=== PATIENT | male | born 1935 | race Caucasian/White ===

== ENCOUNTER 2016-07-31 20:07 | Inpatient (IN) | payer OTHER ==
[~2016-07-31] VITALS: Ht 165.1 cm; Wt 77.2 kg
[~2016-07-31 20:07] MED LIST changes: -AMR2 PO; -ASPEC81 PO; -CARB-157 PO; -GLIM1TAB2 PO; -PRVC10 PO; -SAXAGLIPTIN PO
[2016-07-31] MEDS ORDERED: SODIUM CHLORIDE 0.9% 1000ML 1,000 ML IV SCH (20:57)
--- NOTE | 2016-07-31 21:07 | EMERGENCY ROOM VISIT NOTE ---
History Report prepared by Lashaeibe: Dianelys Stiles Under the Supervision of: Dr. Juan Bonilla D.O. First contact with patient: 20:54 Chief Complaint: NEURO SYMPTOMS Stated Complaint: CONFUSION Nursing Triage Summary: pt arrived via ALS; he is not able to articulate his thoughts, his words are jumbled; states he knows what is happening; he does not follow commands. History of Present Illness The patient is a 81 year old male who presents to the Emergency Room via ALS with complaints of persistent neurological symptoms. Per nursing staff, the patient's symptoms started about 7 - 7.5 hours ago. The patient states that he cannot hear, "I can't pull together." Upon arrival, the patient has expressive aphasia. His blood sugar was 180 en route. History is limited secondary to aphasia. Source of History: patient, nursing staff History Limited By: aphasia Onset: 7 - 7.5 hours ago Position: other (neuro ) Quality: other (expressive aphasia) Timing: other (persistent) Review of Systems Unobtainable secondary to aphasia. Past Medical & Surgical Medical Problems: (1) Diabetes (2) HTN (hypertension) Family History Noncontributory secondary to age. Social History Smoking Status: Former Smoker Alcohol Use: none Marital Status: Housing Status: lives with significant other Current/Historical Medications Scheduled Alfuzosin Hcl (Uroxatral), 10 MG PO QPM Glipizide (Glipizide Er), 1 TAB PO BID Hctz/Lisinopril (Lisinopril/Hctz 20/25 Mg), 1 TAB PO QAM Levothyroxine Sodium (Levothyroxine Sodium), 1 TAB PO QAM Metformin Hcl (Glucophage), 1,000 MG PO BID [Saxagliptin], 2.5 MG PO DAILY Scheduled PRN Oxycodone/Acetaminophen 5MG/325MG (Percocet 5MG/325MG), 1-2 TABLETS PO Q4H PRN for Pain Allergies Coded Allergies: No Known Allergies (Verified , 03/11/16) Physical Exam Vital Signs Date Time Temp Pulse Resp B/P Pulse Ox O2 Delivery O2 Flow Rate FiO2 08/01/16 00:02 81 18 121/64 94 Room Air 07/31/16 22:25 147/73 07/31/16 22:17 90 18 95 Room Air 07/31/16 21:20 87 07/31/16 21:17 94 Room Air 07/31/16 20:15 36.8 89 18 150/82 96 Room Air Physical Exam GENERAL: Patient is awake and alert, somewhat anxious appearing and guarded. EYES: The conjunctivae are clear. The pupils are round and reactive. EARS, NOSE, MOUTH AND THROAT: The nose is without any evidence of any deformity. Mucous membranes are moist tongue is midline NECK: The neck is nontender and supple. There were no bruits noted to auscultation. RESPIRATORY: Normal respiratory effort is noted there is no evidence of wheezing rhonchi or rales CARDIOVASCULAR: Regular rate and rhythm noted there no murmurs rubs or gallops normal S1 normal S2 GASTROINTESTINAL: The abdomen is soft. Bowel sounds are present in all quadrants. Abdomen is nontender MUSCULOSKELETAL/EXTREMITIES: There is no evidence of gross deformity full range of motion is noted in the hips and shoulders SKIN: There is no obvious evidence of any rash. There are no petechiae, pallor or cyanosis noted. NEUROLOGIC: Strength was symmetric. There was no drift in either upper or lower extremity. No facial droop was noted. Significant expressive aphasia was appreciated on questioning. Patient had word findings at times. Medical Decision & Procedures ER Provider Diagnostic Interpretation: X ray results and stated below per my interpretation and radiology interpretation. Other radiology results per my review and radiologist interpretation: CT HEAD WITHOUT CONTRAST (CT) CLINICAL HISTORY: Stroke COMPARISON STUDY: No previous studies for comparison. TECHNIQUE: Axial CT of the brain is performed from the vertex to the skull base. IV contrast was not administered for this examination. CT DOSE: 614.27 mGy.cm FINDINGS: No intra or extra-axial mass lesions are visualized. There is subtle loss in miller-white differentiation within the left parietal apex. This could indicate an acute/subacute infarct. There is no acute hemorrhage. There are patchy white matter hypodensities likely on a small vessel basis. There is no evidence of pathologic ventricular dilatation. There are multiple bilateral basal ganglia and deep white matter lacunar infarcts. There is a left mastoid effusion. IMPRESSION: 1. Multiple old bilateral lacunar infarcts 2. Subtle loss in miller-white differentiation involving the left parietal lobe, possibly representing an acute/subacute infarct. 3. No acute hemorrhage 4. Left mastoid effusion Electronically signed by: Jeramie Lawson M.D. 07/31/2016 9:16 PM Dictated Date/Time: 07/31/2016 9:13 PM CHEST ONE VIEW PORTABLE CLINICAL HISTORY: Stroke COMPARISON STUDY: 03/06/2016 FINDINGS: The heart is borderline enlarged. There is stable aortic tortuosity/ectasia. There is stable mild interstitial thickening. There is no lobar consolidation. There is a punctate metallic density projected over the right midlung zone, unchanged from the prior study [ IMPRESSION: No active disease in the chest. Electronically signed by: Jeramie Lawson M.D. 07/31/2016 9:17 PM Dictated Date/Time: 07/31/2016 9:16 PM Laboratory Results 07/31/16 21:41 Red Blood Count 4.78, Mean Corpuscular Volume 83.5, Mean Corpuscular Hemoglobin 27.8, Mean Corpuscular Hemoglobin Concent 33.3, Mean Platelet Volume 11.3, Neutrophils (%) (Auto) 75.1, Lymphocytes (%) (Auto) 18.3, Monocytes (%) (Auto) 5.3, Eosinophils (%) (Auto) 0.8, Basophils (%) (Auto) 0.1, Neutrophils # (Auto) 11.05, Lymphocytes # (Auto) 2.70, Monocytes # (Auto) 0.78, Eosinophils # (Auto) 0.12, Basophils # (Auto) 0.01 07/31/16 21:41 Test 07/31/16 20:40 07/31/16 21:34 07/31/16 21:41 Urine Color YELLOW Urine Appearance CLEAR (CLEAR) Urine pH 5.5 (4.5-7.5) Urine Specific [place] 1.015 (1.000-1.030) Urine Protein NEG (NEG) Urine Glucose (UA) TRACE (NEG) Urine Ketones NEG (NEG) Urine Occult Blood NEG (NEG) Urine Nitrite NEG (NEG) Urine Bilirubin NEG (NEG) Urine Urobilinogen NEG (NEG) Urine Leukocyte Esterase NEG (NEG) Urine Opiates Screen NEG (NEG) Urine Methadone, Qualitative NEG (NEG) Urine Barbiturates NEG (NEG) Urine Phencyclidine (PCP) Level NEG (NEG) Ur Amphetamine/Methamphetamine NEG (NEG) MDMA (Ecstasy) Screen NEG (NEG) Urine Benzodiazepines Screen NEG (NEG) Urine Cocaine Metabolite NEG (NEG) Urine Marijuana (THC) NEG (NEG) Bedside Glucose 191 mg/dl (70-99) White Blood Count 14.72 K/uL (4.8-10.8) Red Blood Count 4.78 M/uL (4.7-6.1) Hemoglobin 13.3 g/dL (14.0-18.0) Hematocrit 39.9 % (42-52) Mean Corpuscular Volume 83.5 fL (80-100) Mean Corpuscular Hemoglobin 27.8 pg (25-34) Mean Corpuscular Hemoglobin Concent 33.3 g/dl (32-36) Platelet Count 209 K/uL (130-400) Mean Platelet Volume 11.3 fL (7.4-10.4) Neutrophils (%) (Auto) 75.1 % Lymphocytes (%) (Auto) 18.3 % Monocytes (%) (Auto) 5.3 % Eosinophils (%) (Auto) 0.8 % Basophils (%) (Auto) 0.1 % Neutrophils # (Auto) 11.05 K/uL (1.4-6.5) Lymphocytes # (Auto) 2.70 K/uL (1.2-3.4) Monocytes # (Auto) 0.78 K/uL (0.11-0.59) Eosinophils # (Auto) 0.12 K/uL (0-0.5) Basophils # (Auto) 0.01 K/uL (0-0.2) RDW Standard Deviation 40.7 fL (36.4-46.3) RDW Coefficient of Variation 13.4 % (11.5-14.5) Immature Granulocyte % (Auto) 0.4 % Immature Granulocyte # (Auto) 0.06 K/uL (0.00-0.02) Prothrombin Time 10.0 SECONDS (9.0-12.0) Prothromb Time International Ratio 0.9 (0.9-1.1) Activated Partial Thromboplast Time 26.8 SECONDS (21.0-31.0) Partial Thromboplastin Ratio 1.0 Anion Gap 11.0 mmol/L (3-11) Est Creatinine Clear Calc Drug Dose 35.3 ml/min Estimated GFR () 45.8 Estimated GFR (Non- 39.5 BUN/Creatinine Ratio 13.8 (10-20) Calcium Level 8.4 mg/dl (8.5-10.1) Magnesium Level 2.1 mg/dl (1.8-2.4) Total Creatine Kinase 109 U/L (39-308) Creatine Kinase MB 2.3 ng/ml (0.5-3.6) Creatine Kinase MB Ratio 2.1 (0-3.0) Troponin I < 0.015 ng/ml (0-0.045) Laboratory results per my review. Medications Administered Medications (Trade) Dose Ordered Sig/Sammi Route Start Time Stop Time Status Last Admin Dose Admin Sodium Chloride (Nss 1000ml) 1,000 ml @ 50 mls/hr Q20H IV 07/31/16 20:57 08/30/16 20:56 07/31/16 20:57 50 MLS/HR Aspirin (Aspirin Supp) 300 mg ONE STAT [place] 07/31/16 22:01 07/31/16 22:03 DC 07/31/16 22:01 300 MG ECG Indication: weakness Rate (beats per minute): 81 Rhythm: sinus rhythm Findings: 1st degree AV block, no ectopy, other (no acute ST segment abnormality) ED Course 2056: The patient was evaluated in room C4. A complete history and physical examination were performed. Ordered NSS 1000 ml @ 50 mls/hr IV. 2140: Ordered Aspirin Chew 324 mg PO. 2150: I discussed the case with Dr. Mixon, [facility]. He requested that I speak with the [facility] neurologist to see if they recommend further intervention that would require transfer. 2200: Ordered Aspirin Supp 300 mg AZ. 2202: I discussed the case with Dr. Perez, [facility]. He does not feel transfer is warranted at this point as he is outside of the window for intervention. Medical Decision Prior records/ancillary studies reviewed and summarized above. Nursing notes reviewed. Additional history obtained from nursing staff. Differential diagnosis: Etiologies such as metabolic, infection, hypo/hyperglycemia, electrolyte abnormalities, cardiac sources, intracerebral event, toxicologic, neurologic, as well as others were entertained. The patient is an 81-year-old male who presented to the emergency department by ambulance for an evaluation of altered mental status. The patient was not in his normal mental status at approximately 2 p.m. according to the public health training assistant as well as the patient's significant other. His significant other thought that he was just tired and let him go to sleep. When he awoke this evening he had continued symptoms. He was brought to the emergency department for an evaluation. On my initial valuation the patient appeared to have very significant expressive aphasia. He had no weakness in his extremities. He also did not have a facial droop. I discussed the patient's laboratory and radiographic studies with him and his significant other. He appears to have signs of subacute infarct on CT the head. I do feel his overall condition fit with an ischemic CVA given his expressive aphasia at this time. I discussed his case with the on-call [facility] hospitalist group. I also discussed his case with the stroke neurologist at [facility]. He cause he is outside the window for thrombolytics he was not considered a stroke alert and was not evaluated for TPA. He was given aspirin in the emergency department. He was reevaluated multiple times. No significant change in his physical exam was noted. Consults Time Called: 2147 Consulting Physician: Dr. Mixon, [facility] Returned Call: 2150 I discussed the case with him. He requested that I speak with the [facility] neurologist to see if they recommend further intervention that would require transfer. Additional Consults: Time Called: 2154 Consulted Physician: Dr. Perez, [facility] Returned Call: [phone] Additional Comments: I discussed the case with him. He does not feel transfer is warranted at this point as he is outside of the window for intervention. Impression Primary Impression: Acute CVA (cerebrovascular accident) Additional Impression: Expressive aphasia Scribe Attestation The scribe's documentation has been prepared under my direction and personally reviewed by me in its entirety. I confirm that the note above accurately reflects all work, treatment, procedures, and medical decision making performed by me. Departure Information Dispostion Being Evaluated By Hospitalist Referrals Michael Solorio M.D. (PCP) Patient Instructions My [facility] Health Problem Qualifiers
--- NOTE | 2016-07-31 21:17 | DIAGNOSTIC IMAGING REPORT ---
CT HEAD WITHOUT CONTRAST (CT) CLINICAL HISTORY: Stroke COMPARISON STUDY: No previous studies for comparison. TECHNIQUE: Axial CT of the brain is performed from the vertex to the skull base. IV contrast was not administered for this examination. CT DOSE: 614.27 mGy.cm FINDINGS: No intra or extra-axial mass lesions are visualized. There is subtle loss in miller-white differentiation within the left parietal apex. This could indicate an acute/subacute infarct. There is no acute hemorrhage. There are patchy white matter hypodensities likely on a small vessel basis. There is no evidence of pathologic ventricular dilatation. There are multiple bilateral basal ganglia and deep white matter lacunar infarcts. There is a left mastoid effusion. IMPRESSION: 1. Multiple old bilateral lacunar infarcts 2. Subtle loss in miller-white differentiation involving the left parietal lobe, possibly representing an acute/subacute infarct. 3. No acute hemorrhage 4. Left mastoid effusion Electronically signed by: Jeramie Lawson M.D. 07/31/2016 9:16 PM Dictated Date/Time: 07/31/2016 9:13 PM
--- NOTE | 2016-07-31 21:19 | DIAGNOSTIC IMAGING REPORT ---
CHEST ONE VIEW PORTABLE CLINICAL HISTORY: Stroke COMPARISON STUDY: 03/06/2016 FINDINGS: The heart is borderline enlarged. There is stable aortic tortuosity/ectasia. There is stable mild interstitial thickening. There is no lobar consolidation. There is a punctate metallic density projected over the right midlung zone, unchanged from the prior study [ IMPRESSION: No active disease in the chest. Electronically signed by: Jeramie Lawson M.D. 07/31/2016 9:17 PM Dictated Date/Time: 07/31/2016 9:16 PM
[2016-07-31 21:20] LABS: URINE APPEARANCE CLEAR (CLEAR); URINE BILIRUBIN NEG (NEG); URINE COLOR YELLOW; URINE NITRITE NEG (NEG); URINE PH 5.5 (4.5-7.5); URINE SPECIFIC GRAVITY 1.015 (1.000-1.030); UROBILINOGEN NEG (NEG)
[2016-07-31 21:29] LABS: MANUAL MICROSCOPIC REQUIRED? NO; REVIEW REQ? NO
[2016-07-31 21:38] LABS: BENZODIAZEPINE, URINE NEG (NEG); COCAINE,URINE NEG (NEG); PHENCYCLIDINE, URINE NEG (NEG)
[2016-07-31] MEDS ORDERED: ASPIRIN 81 MG CHEW PO STA (21:41)
[2016-07-31] MEDS ORDERED: ASPIRIN 300 MG SUPP PR STA (22:01)
[2016-07-31 22:08] LABS: BASO % 0.1 %; BASO ABS # 0.01 K/uL (0-0.2); COMPLETE YES; EOS % 0.8 %; HEMATOCRIT 39.9 % (42-52); IG% 0.4 %; LYMPH % 18.3 %; MEAN CELL VOLUME 83.5 fL (80-100); MEAN CORPUSCULAR HEMOGLOBIN 27.8 pg (25-34); MEAN CORPUSCULAR HGB CONC 33.3 g/dl (32-36); MEAN PLATELET VOLUME 11.3 fL (7.4-10.4); MONO % 5.3 %; NEUT % 75.1 %; PLATELET COUNT 209 K/uL (130-400); RED BLOOD COUNT 4.78 M/uL (4.7-6.1); WHITE BLOOD COUNT 14.72 K/uL (4.8-10.8)
[2016-07-31 22:17] LABS: INR 0.9 (0.9-1.1)
[2016-07-31 22:26] LABS: BLOOD UREA NITROGEN 22 mg/dl (7-18); BUN/CREATININE RATIO 13.8 (10-20); CALCIUM 8.4 mg/dl (8.5-10.1); CARBON DIOXIDE 20 mmol/L (21-32); CHLORIDE 108 mmol/L (98-107); GLUCOSE 197 mg/dl (70-99); POTASSIUM 4.4 mmol/L (3.5-5.1); SODIUM 139 mmol/L (136-145)
[2016-07-31 22:31] LABS: CKMB/CK RATIO 2.1 (0-3.0)
[2016-07-31] MEDS ORDERED: ONDANSETRON INJ 2 MG/ML 2 ML VIAL IV PRN (23:00)
[2016-07-31] MEDS ORDERED: PHARMACIST DISCHARGE MED REC CONSULT PRN (23:00)
[2016-07-31] MEDS ORDERED: ACETAMINOPHEN 325 MG TAB PO PRN (23:00)
[2016-07-31] MEDS ORDERED: POLYETHYLENE (MIRALAX) 17 GM PACK PO PRN (23:00)
[2016-07-31] MEDS ORDERED: MoRPHine SULFATE 2 MG/ML CARP IV PRN (23:00)
[2016-07-31] MEDS ORDERED: MAGNESIUM HYDROXIDE SUSP 30 ML UDC PO PRN (23:00)
[2016-07-31] MEDS ORDERED: ALUMINUM/MAGNESIUM/SIMETH (MAALOX MAX) 30 ML UDC PO PRN (23:00)
[2016-07-31] MEDS ORDERED: OXYCODONE/ACETAMINOPHEN 5-325 TAB PO PRN (23:00)
[2016-07-31] MEDS ORDERED: SAXAGLIPTIN PO (23:14)
--- NOTE | 2016-07-31 23:23 | History and Physical ---
History & Physical Date & Time of Service: Jul 31, 2016 at 23:08 Chief Complaint: Confusion Primary Care Physician: Michael Solorio M.D. History of Present Illness Source: spouse 81 y/o M w/Hx HTN, NIDDM. Pts reported that he was acting slightly confused around noon and had decided to take a nap therefore. Upon waking up his confusion persisted and his ultimately contacted EMS to transport him to the hospital. The pt could not provide a reliable history and appeared to have a degree of both expressive and receptive aphasia. He was sent for a CT head which revealed what ids likely an acute L parietal CVA. His deficits persist at the time of admission although they appear to be stable. He presented well out of the window for TPA consideration. His states that he was in his normal state of health one day prior. 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 Smoking Status: Former Smoker Marital Status: Multi-Drug Resistant Organisms History of MDRO: No Allergies Coded Allergies: No Known Allergies (Verified , 03/11/16) Home Medications Scheduled Alfuzosin Hcl (Uroxatral), 10 MG PO QPM Glipizide (Glipizide Er), 1 TAB PO BID Hctz/Lisinopril (Lisinopril/Hctz 20/25 Mg), 1 TAB PO QAM Levothyroxine Sodium (Levothyroxine Sodium), 1 TAB PO QAM Metformin Hcl (Glucophage), 1,000 MG PO BID [Onglyza], 2.5 MG PO BID [Super Beta Prostate], 1 TAB PO NOON Scheduled PRN Oxycodone/Acetaminophen 5MG/325MG (Percocet 5MG/325MG), 1-2 TABLETS PO Q4H PRN for Pain Review of Systems ROS could not be reliably obtained from this pt - his had him brought to the hospital due to what she perceived was confusion Physical Exam Vital Signs Date Time Temp Pulse Resp B/P Pulse Ox O2 Delivery O2 Flow Rate FiO2 07/31/16 22:25 147/73 07/31/16 22:17 90 18 95 Room Air 07/31/16 21:20 87 07/31/16 21:17 94 Room Air 07/31/16 20:15 36.8 89 18 150/82 96 Room Air General Appearance: no apparent distress, + pertinent finding (PLeasant elderly male - has a hard time answering questions and difficulty with word finding and following commands - he is in no acute distress) Head: normocephalic, atraumatic Eyes: normal inspection, PERRL, EOMI ENT: normal ENT inspection, pharynx normal, + pertinent finding (Hard of haring ) Neck: supple, no adenopathy, thyroid normal, no JVD Respiratory/Chest: chest non-tender, lungs clear, normal breath sounds Cardiovascular: regular rate, rhythm, no edema, no gallop, no JVD Abdomen/GI: normal bowel sounds, non tender, soft Back: normal inspection, no CVA tenderness Extremities/Musculoskelatal: normal inspection, no calf tenderness, normal capillary refill, no pedal edema, normal range of motion Neurologic/Psych: + pertinent finding (PLeasant elderly male - has a hard time answering questions and difficulty with word finding and following commands - there is no facial assymetry, no tongue deviation, strength is maintained and equal in upper and lower extremities without pronator drift. He has difficulty with coordination possibly resulting from an inability to comprehend instructions. He is confabulating some words.) Skin: normal color, warm/dry, no rash Diagnostics Laboratory Results Results Past 24 Hours Test 07/31/16 20:40 07/31/16 21:34 07/31/16 21:41 07/31/16 22:46 Range/Units Urine Color YELLOW Urine Appearance CLEAR CLEAR Urine pH 5.5 4.5-7.5 Urine Specific [place] 1.015 1.000-1.030 Urine Protein NEG NEG Urine Glucose (UA) TRACE NEG Urine Ketones NEG NEG Urine Occult Blood NEG NEG Urine Nitrite NEG NEG Urine Bilirubin NEG NEG Urine Urobilinogen NEG NEG Urine Leukocyte Esterase NEG NEG Urine Opiates Screen NEG NEG Urine Methadone, Qualitative NEG NEG Urine Barbiturates NEG NEG Urine Phencyclidine (PCP) Level NEG NEG Ur Amphetamine/Methamphetamine NEG NEG MDMA (Ecstasy) Screen NEG NEG Urine Benzodiazepines Screen NEG NEG Urine Cocaine Metabolite NEG NEG Urine Marijuana (THC) NEG NEG Bedside Glucose 191 70-99 mg/dl White Blood Count 14.72 4.8-10.8 K/uL Red Blood Count 4.78 4.7-6.1 M/uL Hemoglobin 13.3 14.0-18.0 g/dL Hematocrit 39.9 42-52 % Mean Corpuscular Volume 83.5 80-100 fL Mean Corpuscular Hemoglobin 27.8 25-34 pg Mean Corpuscular Hemoglobin Concent 33.3 32-36 g/dl Platelet Count 209 130-400 K/uL Mean Platelet Volume 11.3 7.4-10.4 fL Neutrophils (%) (Auto) 75.1 % Lymphocytes (%) (Auto) 18.3 % Monocytes (%) (Auto) 5.3 % Eosinophils (%) (Auto) 0.8 % Basophils (%) (Auto) 0.1 % Neutrophils # (Auto) 11.05 1.4-6.5 K/uL Lymphocytes # (Auto) 2.70 1.2-3.4 K/uL Monocytes # (Auto) 0.78 0.11-0.59 K/uL Eosinophils # (Auto) 0.12 0-0.5 K/uL Basophils # (Auto) 0.01 0-0.2 K/uL RDW Standard Deviation 40.7 36.4-46.3 fL RDW Coefficient of Variation 13.4 11.5-14.5 % Immature Granulocyte % (Auto) 0.4 % Immature Granulocyte # (Auto) 0.06 0.00-0.02 K/uL Prothrombin Time 10.0 9.0-12.0 SECONDS Prothromb Time International Ratio 0.9 0.9-1.1 Activated Partial Thromboplast Time 26.8 21.0-31.0 SECONDS Partial Thromboplastin Ratio 1.0 Sodium Level 139 136-145 mmol/L Potassium Level 4.4 3.5-5.1 mmol/L Chloride Level 108 98-107 mmol/L Carbon Dioxide Level 20 21-32 mmol/L Anion Gap 11.0 3-11 mmol/L Blood Urea Nitrogen 22 7-18 mg/dl Creatinine 1.60 0.60-1.40 mg/dl Est Creatinine Clear Calc Drug Dose 35.3 ml/min Estimated GFR () 45.8 Estimated GFR (Non- 39.5 BUN/Creatinine Ratio 13.8 10-20 Random Glucose 197 70-99 mg/dl Calcium Level 8.4 8.5-10.1 mg/dl Magnesium Level 2.1 1.8-2.4 mg/dl Total Creatine Kinase 109 39-308 U/L Creatine Kinase MB 2.3 0.5-3.6 ng/ml Creatine Kinase MB Ratio 2.1 0-3.0 Troponin I < 0.015 0-0.045 ng/ml Diagnostic Radiology CT head 1. Multiple old bilateral lacunar infarcts 2. Subtle loss in miller-white differentiation involving the left parietal lobe, possibly representing an acute/subacute infarct. 3. No acute hemorrhage 4. Left mastoid effusion EKG Sinus - 1st degree AV block Impression Assessment and Plan 81 y/o M w/Hx HTN, NIDDM. Pts reported that he was acting slightly confused around noon and had decided to take a nap therefore. Upon waking up his confusion persisted and his ultimately contacted EMS to transport him to the hospital. He has a degree of both expressive and receptive aphasia on admission. He was sent for a CT head which revealed what is likely an acute L parietal CVA. He presented well out of the window for TPA consideration. 1) CVA - Provided with ASA and a Statin - will monitor on telemetry with neuro- checks and consult Neurology, PT/OT. Antihypertensives held. 2) HTN - HCTZ/Lisinopril held due to above 3) DM - placed on sliding scale Full code - Heparin prophylaxis Total time for this admit including chart review - review of labs, CT, EKG, meds - discussion with pt, , ER attending - 40 min Level of Care Telemetry Resuscitation Status FULL RESUSCITATION VTE Prophylaxis VTE Risk Assessment Done? Y/N: Yes Risk Level: Moderate Given or contraindicated: Unfractionated heparin SQ
[2016-08-01] VITALS (9 sets, daily range): BP systolic 111–157; BP diastolic 66–94; PULSE 81–101; TEMP 36.2–36.8; O2SAT 94–98; Ht 165.1 cm; Wt 77.2 kg
[2016-08-01] MEDS ORDERED: GLUCOSE 40% GEL 15 GM TUBE PO PRN (03:15)
[2016-08-01] MEDS ORDERED: DEXTROSE 50% 50 ML SYR IV PRN (03:15)
[2016-08-01] MEDS ORDERED: GLUCAGON FOR INJ 1 MG VIAL SQ PRN (03:15)
[2016-08-01] MEDS ORDERED: GLUCOSE 10 TABS/TUBE PO PRN (03:15)
[2016-08-01] MEDS: HEPARIN SOD 5000 UNIT/0.5 ML CARP SQ SCH ×3 (05:14→19:45)
[2016-08-01] MEDS: LEVOTHYROXINE 50 MCG TAB PO SCH (05:17)
[2016-08-01 05:47] LABS: ESTIMATED AVERAGE GLUCOSE 183 mg/dl; HA1C FLAG Normal (Normal)
[2016-08-01 06:00] LABS: BASO % 0.1 %; BASO ABS # 0.01 K/uL (0-0.2); COMPLETE YES; EOS % 0.6 %; HEMATOCRIT 38.8 % (42-52); IG% 0.3 %; LYMPH % 17.9 %; MEAN CELL VOLUME 83.1 fL (80-100); MEAN CORPUSCULAR HEMOGLOBIN 27.8 pg (25-34); MEAN CORPUSCULAR HGB CONC 33.5 g/dl (32-36); MEAN PLATELET VOLUME 11.1 fL (7.4-10.4); MONO % 4.4 %; NEUT % 76.7 %; PLATELET COUNT 204 K/uL (130-400); RED BLOOD COUNT 4.67 M/uL (4.7-6.1); WHITE BLOOD COUNT 15.61 K/uL (4.8-10.8)
--- NOTE | 2016-08-01 06:23 | DIAGNOSTIC IMAGING REPORT ---
BILATERAL CAROTID DOPPLER STUDY HISTORY: Mental status change Stroke COMPARISON: 03/03/2008 TECHNIQUE: Real-time, grayscale, and color Doppler sonography of the carotid arteries was performed. Imaging reviewed in the transverse and longitudinal planes. All measurements were calculated based on NASCET criteria. FINDINGS: Antegrade flow is seen in the bilateral vertebral arteries. The brachial pressures are hemodynamically similar. Minimal plaque formation bilaterally The peak systolic velocity within the right ICA is 61. The right systolic ratio is 0.8. The peak systolic velocity within the left ICA is 51. The left systolic ratio is 0.7. IMPRESSION: No hemodynamically significant stenosis seen within the carotid arteries. Electronically signed by: Ross Bates M.D. 08/01/2016 6:21 AM Dictated Date/Time: 08/01/2016 6:20 AM
[2016-08-01 06:27] LABS: BUN/CREATININE RATIO 13.1 (10-20); CALCIUM 8.2 mg/dl (8.5-10.1); CREATININE 1.5 mg/dl (0.60-1.40); POTASSIUM 4.1 mmol/L (3.5-5.1)
[2016-08-01 06:30] LABS: CHOLESTEROL/HDL RATIO 3.4
[2016-08-01] MEDS: INSULIN ASPART 100 UNITS/ML 3 ML PEN SC SCH ×4 (07:55→21:36)
[2016-08-01] MEDS: ASPIRIN 325 MG ECTAB PO SCH (07:56)
[2016-08-01] MEDS ORDERED: ATORVASTATIN 40 MG TAB PO SCH (09:00)
[2016-08-01 09:39] LABS: C-REACTIVE PROTEIN < 0.29 mg/dl (0-0.29)
--- NOTE | 2016-08-01 09:54 | Neurology Consultation ---
Neurology Consultation Date of Consultation: Aug 01, 2016. Attending Physician: Earl Goldberg MD, PhD Primary Care Physician: Michael Solorio M.D. Reason for Consultation: Consultation for confusion, speech disturbance, and concern for stroke History of Present Illness Source: patient, hospital records This is a 81-year-old right-handed male who presents for the above evaluation. He reports that at 2 PM yesterday start did not feel well. He was feeling confused and felt like his speech was also slurred. He denies any specific visual changes or vision loss. Denies any facial droop or motor weakness. Denied any sensory changes. He went to lay down for a nap, but reports that at 4 PM it was worse. He went to the emergency room after this time. At the time he arrived at the emergency room he was outside the time window for IV TPA. Daughter does report that separate from this episode he has been having trouble with his balance and gait recently. His gait is seemed more unsteady. He denies any numbness or sensory changes. No specific pain or headaches. Patient was not on antiplatelets or cholesterol medication at the time of this event. CT of the head report and images were reviewed by myself concerning for a possible acute to subacute left parietal ischemic stroke along with other small vessel ischemic changes. Ultrasound of the carotids were unremarkable. Labs were reviewed. Increased WBCs. Creatinine 1.5. Hemoglobin A1c 8.0. Total cholesterol 105, LDL 49, HDL 31, triglycerides 123 Patient does have some intermittent nonrhythmic twitching of the right arm and leg that he reports is been there since his discharge from the service. Daughter reports is been there her entire life and has not changed. No history of seizures. Past Medical/Surgical History Medical Problems: (1) Acute CVA (cerebrovascular accident) Status: Acute (2) Expressive aphasia Status: Acute Diabetes type 2, hypertension, recent diagnosis of bladder cancer status post bladder surgery in February, history of colon and prostate cancer Family History Family history of liver and lung cancer. 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 He is independent in his activities of daily living. Remote tobacco use. Remote alcohol use. No illegal drug use. Smoking Status: Former smoker Marital Status: Housing Status: lives with significant other Allergies Coded Allergies: No Known Allergies (Verified , 03/11/16) Current Inpatient Medications Current Inpatient Medications Medications (Trade) Dose Ordered Sig/Sammi Route Start Time Stop Time Status Last Admin Dose Admin Miscellaneous Information (Pharmacist Discharge Med Rec Consult) 1 ea UD PRN N/A 07/31/16 23:00 08/30/16 22:59 Heparin Sodium (Porcine) (Heparin Sq 5000 Unit/0.5ml) 5,000 unit Q8H SQ 08/01/16 06:00 08/31/16 05:59 08/01/16 05:14 5,000 UNIT Acetaminophen (Tylenol Tab) 650 mg Q4H PRN PO 07/31/16 23:00 08/30/16 22:59 Al Hydrox/Mg Hydrox/Simethicone (Maalox Max Susp) 15 ml Q4H PRN PO 07/31/16 23:00 08/30/16 22:59 Magnesium Hydroxide (Milk Of Magnesia Susp) 30 ml Q12H PRN PO 07/31/16 23:00 08/30/16 22:59 Ondansetron HCl (Zofran Inj) 4 mg Q6H PRN IV 07/31/16 23:00 08/30/16 22:59 Morphine Sulfate (MoRPHine SULFATE INJ) 2 mg Q30M PRN IV 07/31/16 23:00 08/14/16 22:59 Aspirin (Ecotrin Tab) 325 mg QAM PO 08/01/16 09:00 08/31/16 08:59 08/01/16 07:56 325 MG Polyethylene (Miralax Powder Packet) 17 gm DAILY PRN PO 07/31/16 23:00 08/30/16 22:59 Alfuzosin HCl (Uroxatral Tab) 10 mg QPM PO 08/01/16 21:00 08/31/16 20:59 Levothyroxine Sodium (Synthroid Tab) 50 mcg DAILYBB PO 08/01/16 06:30 08/31/16 06:29 08/01/16 05:17 50 MCG Oxycodone/ Acetaminophen (Percocet 5-325mg Tab) 1 tab Q4H PRN PO 07/31/16 23:00 08/14/16 22:59 Insulin Aspart (novoLOG ASPART) SLIDING SCALE G... ACHS SC 08/01/16 06:30 08/31/16 06:59 Glucose (Glucose 40% Gel) 15-30 GRAMS 15 GRAMS... UD PRN PO 08/01/16 03:15 08/31/16 03:14 Glucose (Glucose Chew Tab) 4-8 Tablets 4 Tabl... UD PRN PO 08/01/16 03:15 08/31/16 03:14 Dextrose (Dextrose 50% 50ML Syringe) 25-50ML OF 50% DW IV FOR... UD PRN IV 08/01/16 03:15 08/31/16 03:14 Glucagon (Glucagon Inj) 1 mg UD PRN SQ 08/01/16 03:15 08/31/16 03:14 Pravastatin Sodium (Pravachol Tab) 10 mg DAILY@17 PO 08/01/16 17:00 08/31/16 16:59 Review of Systems Complete review of systems otherwise negative except for the above noted in history of present illness. Physical Exam Vital Signs (Past 24 Hrs): Date Time Temp Pulse Resp B/P Pulse Ox O2 Delivery O2 Flow Rate FiO2 08/01/16 08:00 Room Air 08/01/16 07:40 36.8 81 20 117/69 98 Room Air 08/01/16 05:32 36.3 92 20 148/94 98 Room Air 08/01/16 04:00 36.3 92 20 148/94 98 Room Air 08/01/16 03:48 98 Room Air 08/01/16 02:00 36.4 92 20 153/81 98 Room Air 08/01/16 00:02 81 18 121/64 94 Room Air 07/31/16 22:25 147/73 07/31/16 22:17 90 18 95 Room Air 07/31/16 21:20 87 07/31/16 21:17 94 Room Air 07/31/16 20:15 36.8 89 18 150/82 96 Room Air Gen.: Patient is alert and oriented in no acute distress lying in bed Heart: Regular rate and rhythm Extremities: No gross deformities or rashes noted Neurological examination: Mental status: Patient is alert and oriented to person place and time. Able to give his own history. Attention concentration normal for the situation. Speech: Mild expressive aphasia. Understanding difficulties may be secondary to globally decreased hearing. Cranial nerves: Visual payne intact to counting. Funduscopic examination was difficult to visualize. Pupils equally round and reactive to light. Extraocular muscles intact without nystagmus. No facial asymmetry noted. Facial sensation intact. Tongue midline. Good palatal elevation. Good shoulder shrug bilaterally. Hearing grossly intact voice. Strength: 5/5 both proximal and distal in all extremities .Tone is normal. Sensation: Grossly intact to light touch in all extremities Deep tendon reflexes: +1 in bilateral biceps and patellar. Toes are downgoing to plantar stimulation bilaterally Coordination: Patient has good finger to nose without dysmetria Station within the bed is normal. Intermittent nonrhythmic twitching of the right upper and lower extremity independently. Laboratory Results Past 24 Hours: 08/01/16 05:31 Red Blood Count 4.67, Mean Corpuscular Volume 83.1, Mean Corpuscular Hemoglobin 27.8, Mean Corpuscular Hemoglobin Concent 33.5, Mean Platelet Volume 11.1, Neutrophils (%) (Auto) 76.7, Lymphocytes (%) (Auto) 17.9, Monocytes (%) (Auto) 4.4, Eosinophils (%) (Auto) 0.6, Basophils (%) (Auto) 0.1, Neutrophils # (Auto) 11.98, Lymphocytes # (Auto) 2.80, Monocytes # (Auto) 0.69, Eosinophils # (Auto) 0.09, Basophils # (Auto) 0.01 08/01/16 05:31 Test 07/31/16 20:40 07/31/16 21:41 08/01/16 05:31 08/01/16 07:53 Urine Color YELLOW Urine Appearance CLEAR (CLEAR) Urine pH 5.5 (4.5-7.5) Urine Specific [place] 1.015 (1.000-1.030) Urine Protein NEG (NEG) Urine Glucose (UA) TRACE (NEG) Urine Ketones NEG (NEG) Urine Occult Blood NEG (NEG) Urine Nitrite NEG (NEG) Urine Bilirubin NEG (NEG) Urine Urobilinogen NEG (NEG) Urine Leukocyte Esterase NEG (NEG) Urine Opiates Screen NEG (NEG) Urine Methadone, Qualitative NEG (NEG) Urine Barbiturates NEG (NEG) Urine Phencyclidine (PCP) Level NEG (NEG) Ur Amphetamine/Methamphetamine NEG (NEG) MDMA (Ecstasy) Screen NEG (NEG) Urine Benzodiazepines Screen NEG (NEG) Urine Cocaine Metabolite NEG (NEG) Urine Marijuana (THC) NEG (NEG) Prothrombin Time 10.0 SECONDS (9.0-12.0) Prothromb Time International Ratio 0.9 (0.9-1.1) Activated Partial Thromboplast Time 26.8 SECONDS (21.0-31.0) Partial Thromboplastin Ratio 1.0 Estimated Average Glucose 183 mg/dl Hemoglobin A1c 8.0 % (4.5-5.6) Magnesium Level 2.1 mg/dl (1.8-2.4) Total Creatine Kinase 109 U/L (39-308) Creatine Kinase MB 2.3 ng/ml (0.5-3.6) Creatine Kinase MB Ratio 2.1 (0-3.0) Troponin I < 0.015 ng/ml (0-0.045) White Blood Count 15.61 K/uL (4.8-10.8) Red Blood Count 4.67 M/uL (4.7-6.1) Hemoglobin 13.0 g/dL (14.0-18.0) Hematocrit 38.8 % (42-52) Mean Corpuscular Volume 83.1 fL (80-100) Mean Corpuscular Hemoglobin 27.8 pg (25-34) Mean Corpuscular Hemoglobin Concent 33.5 g/dl (32-36) Platelet Count 204 K/uL (130-400) Mean Platelet Volume 11.1 fL (7.4-10.4) Neutrophils (%) (Auto) 76.7 % Lymphocytes (%) (Auto) 17.9 % Monocytes (%) (Auto) 4.4 % Eosinophils (%) (Auto) 0.6 % Basophils (%) (Auto) 0.1 % Neutrophils # (Auto) 11.98 K/uL (1.4-6.5) Lymphocytes # (Auto) 2.80 K/uL (1.2-3.4) Monocytes # (Auto) 0.69 K/uL (0.11-0.59) Eosinophils # (Auto) 0.09 K/uL (0-0.5) Basophils # (Auto) 0.01 K/uL (0-0.2) RDW Standard Deviation 40.5 fL (36.4-46.3) RDW Coefficient of Variation 13.4 % (11.5-14.5) Immature Granulocyte % (Auto) 0.3 % Immature Granulocyte # (Auto) 0.04 K/uL (0.00-0.02) Nucleated RBC Absolute Count (auto) 0.02 K/uL (0-0) Nucleated Red Blood Cells % 0.1 % Anion Gap 11.0 mmol/L (3-11) Est Creatinine Clear Calc Drug Dose 37.6 ml/min Estimated GFR () 49.5 Estimated GFR (Non- 42.7 BUN/Creatinine Ratio 13.1 (10-20) Calcium Level 8.2 mg/dl (8.5-10.1) Triglycerides Level 123 mg/dl (0-150) Cholesterol Level 105 mg/dl (0-200) HDL Cholesterol 31 mg/dl LDL Cholesterol, Calculated 49 mg/dl VLDL Cholesterol, Calculated 25 mg/dl Cholesterol/HDL Ratio 3.4 Bedside Glucose 151 mg/dl (70-99) Test 08/01/16 08:33 08/01/16 08:37 Erythrocyte Sedimentation Rate 13 mm/hr (0-14) C-Reactive Protein < 0.29 mg/dl (0-0.29) Thyroid Stimulating Hormone (TSH) 2.020 uIu/ml (0.300-4.500) Lactic Acid Level 1.3 mmol/L (0.4-2.0) Imaging As reviewed in history of present illness Impression This is a 81-year-old male with a likely acute left parietal ischemic stroke of unknown etiology at this time. Residual neurological deficits include mild expressive aphasia. Patient may have some baseline balance and gait dysfunction that has been slowly progressive and multifactorial. Known stroke risk factors include diabetes and hypertension. Plan Agree with initiation of aspirin 81 mg daily for secondary stroke prevention While I agree with the initiation of a statin medication for secondary stroke prevention, I changed the statin medication to pravastatin (which is a weaker statin) since his total cholesterol is on the low side. Lowering total cholesterol below 100 is a risk factor for intracranial bleeds. Echocardiogram is pending MRI of the brain and MRA of the head is pending. For further evaluation of stroke etiology is added on MRA of the neck to the studies. In general a MRA ( or CTA) of the head and neck is preferred over an ultrasound, if able to obtain , as this gives us the most comprehensive information of the vascular system that could predispose toward stroke. Make sure the patient stays well hydrated and avoid hypotension especially in the setting of elevated creatinine and recent stroke. Follow-up PT/OT and speech recommendations for discharge planning Blood pressure recommendations while in hospital 175/95-150/80 For the first month after hospital discharge, blood pressure recommendations 150 /90-130/80. After the first month, blood pressure recommendations 130/80-110/70 Neurological recommendations for stroke risk factor modifications: Total cholesterol goal 100-200, and LDL goal less than 100 (at goal) Hemoglobin A1c goal less than 7 Encourage regular cardiovascular exercise at least 30 minutes 3 times per week Hospital Follow-up in neurology clinic in 1 month after discharge. Thank you for allowing me to participate in this patient's care. If there is any questions or concerns, feel free to call/page me.
--- NOTE | 2016-08-01 10:20 | Medical Student: [facility] ---
Med Student History & Physical Date & Time of Service: Aug 01, 2016 at 09:36 Chief Complaint: Confusion/difficulty speaking Primary Care Physician: Michael Solorio M.D. History of Present Illness Source: patient, family This is an 81 yo male with a history of HTN, DM2, colon cancer, prostate cancer , and bladder cancer, who presented to the ED yesterday with a history of confusion and slurred and difficult speech. He reports that he was normal until about 2 o'clock yesterday when he started feeling strange while in the bathroom. He describes fading and feeling confused and reports that as soon as he began to feel strange he went and laid down for a nap. He slept for some time before presenting to the emergency department for evaluation. He was having difficulty finding words to say but says that he can think the words in his head just fine. He reports some difficulty with balance when trying to turn quickly, but denies any falls. He denies ever having any weakness, numbness, or changes in sensation. In the emergency department he was evaluated with a CT w/ o contrast of his head which demonstrated a left parietal lobe acute infarct and some old lacunar infarcts. CXR showed no abnormalities other than mild cardiomegaly. He was determined to be outside the window for TPA and was given aspirin and atorvastatin. Today he feels well, but is still confused and having difficulty finding the words he would like to say. He has never had anything like this happen to him before. His daughter reports that for the past week he has been more unstable on his feet and was concerned about his balance. Past Medical/Surgical History Significant for HTN treated with HCTZ/lisinopril, Diabetes Mellitus type II treated with metformin and glipizide, remote history of colon cancer and prostate cancer and a recent diagnosis of bladder cancer. He had surgery to remove the mass from his bladder in February according to his daughter. Family History Father from lung cancer. Mother from liver cancer. No reported history of CAD or stroke. 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) Allergies Coded Allergies: No Known Allergies (Verified , 03/11/16) Medications Alfuzosin Hcl (Uroxatral), 10 MG PO QPM Aspirin (Aspirin EC Low Dose), 81 MG PO DAILY Glimepiride (Glimepiride), 1 MG PO QAM Levothyroxine Sodium (Levothyroxine Sodium), 1 TAB PO QAM Oxycodone/Acetaminophen 5MG/325MG (Percocet 5MG/325MG), 1-2 TABLETS PO Q4H PRN for Pain Pravastatin Sod (Pravastatin Sodium), 10 MG PO DAILY@17 Review of Systems Constitutional: No chills, No fever Eyes: No worsening of vision ENT: + hearing loss (hard of hearing) Respiratory: No cough, No sputum Cardiovascular: No chest pain, No orthopnea Abdomen: No nausea, No pain, No vomiting Physical Exam Vital Signs (24 Hours) Date Time Temp Pulse Resp B/P Pulse Ox O2 Delivery O2 Flow Rate FiO2 08/01/16 08:00 Room Air 08/01/16 07:40 36.8 81 20 117/69 98 Room Air 08/01/16 05:32 36.3 92 20 148/94 98 Room Air 08/01/16 04:00 36.3 92 20 148/94 98 Room Air 08/01/16 03:48 98 Room Air 08/01/16 02:00 36.4 92 20 153/81 98 Room Air 08/01/16 00:02 81 18 121/64 94 Room Air 07/31/16 22:25 147/73 07/31/16 22:17 90 18 95 Room Air 07/31/16 21:20 87 07/31/16 21:17 94 Room Air 07/31/16 20:15 36.8 89 18 150/82 96 Room Air General Appearance: WD/WN, no apparent distress Head: normocephalic, atraumatic Eyes: normal inspection, PERRL, EOMI ENT: pharynx normal, + pertinent finding (hard of hearing) Respiratory/Chest: chest non-tender, lungs clear, normal breath sounds Cardiovascular: regular rate, rhythm, no edema, no gallop, no murmur Back: + pertinent finding (Right upper extremity rhythmic twitch) Skin: normal color, warm/dry Neurologic: Alert and Oriented to person, place, and time. Face symmetric. Speech: No dysarthria Language: Mild expressive aphasia CN I: Not tested CN II: PERRLA, visual payne not able to be tested properly work distributor III, IV, : EOMI, no nystagmus CN V: Sensation equal and intact bilaterally. 5/5 masseter strength. CN VII: No facial droop CN VIII: Poor hearing bilaterally CN IX, X: Swallow intact, palate raise symmetric CN XI: Shrug intact, 5/5 strength CN XII: No tongue deviation, 5/5 strength Strength 5/5 bilaterally in proximal and distal muscle groups. Sensation to light touch equal and intact in b/l distal extremities, no hemineglect noted. Reflexes 1+ in b/l biceps, brachioradialis, patella, and ankle. Diagnostics Laboratory Results Results Past 24 Hours Test 07/31/16 20:40 07/31/16 21:34 07/31/16 21:41 08/01/16 05:31 Range/Units Urine Color YELLOW Urine Appearance CLEAR CLEAR Urine pH 5.5 4.5-7.5 Urine Specific [place] 1.015 1.000-1.030 Urine Protein NEG NEG Urine Glucose (UA) TRACE NEG Urine Ketones NEG NEG Urine Occult Blood NEG NEG Urine Nitrite NEG NEG Urine Bilirubin NEG NEG Urine Urobilinogen NEG NEG Urine Leukocyte Esterase NEG NEG Urine Opiates Screen NEG NEG Urine Methadone, Qualitative NEG NEG Urine Barbiturates NEG NEG Urine Phencyclidine (PCP) Level NEG NEG Ur Amphetamine/Methamphetamine NEG NEG MDMA (Ecstasy) Screen NEG NEG Urine Benzodiazepines Screen NEG NEG Urine Cocaine Metabolite NEG NEG Urine Marijuana (THC) NEG NEG Bedside Glucose 191 70-99 mg/dl White Blood Count 14.72 15.61 4.8-10.8 K/uL Red Blood Count 4.78 4.67 4.7-6.1 M/uL Hemoglobin 13.3 13.0 14.0-18.0 g/dL Hematocrit 39.9 38.8 42-52 % Mean Corpuscular Volume 83.5 83.1 80-100 fL Mean Corpuscular Hemoglobin 27.8 27.8 25-34 pg Mean Corpuscular Hemoglobin Concent 33.3 33.5 32-36 g/dl Platelet Count 209 204 130-400 K/uL Mean Platelet Volume 11.3 11.1 7.4-10.4 fL Neutrophils (%) (Auto) 75.1 76.7 % Lymphocytes (%) (Auto) 18.3 17.9 % Monocytes (%) (Auto) 5.3 4.4 % Eosinophils (%) (Auto) 0.8 0.6 % Basophils (%) (Auto) 0.1 0.1 % Neutrophils # (Auto) 11.05 11.98 1.4-6.5 K/uL Lymphocytes # (Auto) 2.70 2.80 1.2-3.4 K/uL Monocytes # (Auto) 0.78 0.69 0.11-0.59 K/uL Eosinophils # (Auto) 0.12 0.09 0-0.5 K/uL Basophils # (Auto) 0.01 0.01 0-0.2 K/uL RDW Standard Deviation 40.7 40.5 36.4-46.3 fL RDW Coefficient of Variation 13.4 13.4 11.5-14.5 % Immature Granulocyte % (Auto) 0.4 0.3 % Immature Granulocyte # (Auto) 0.06 0.04 0.00-0.02 K/uL Prothrombin Time 10.0 9.0-12.0 SECONDS Prothromb Time International Ratio 0.9 0.9-1.1 Activated Partial Thromboplast Time 26.8 21.0-31.0 SECONDS Partial Thromboplastin Ratio 1.0 Sodium Level 139 141 136-145 mmol/L Potassium Level 4.4 4.1 3.5-5.1 mmol/L Chloride Level 108 109 98-107 mmol/L Carbon Dioxide Level 20 21 21-32 mmol/L Anion Gap 11.0 11.0 3-11 mmol/L Blood Urea Nitrogen 22 20 7-18 mg/dl Creatinine 1.60 1.50 0.60-1.40 mg/dl Est Creatinine Clear Calc Drug Dose 35.3 37.6 ml/min Estimated GFR () 45.8 49.5 Estimated GFR (Non- 39.5 42.7 BUN/Creatinine Ratio 13.8 13.1 10-20 Random Glucose 197 174 70-99 mg/dl Estimated Average Glucose 183 mg/dl Hemoglobin A1c 8.0 4.5-5.6 % Calcium Level 8.4 8.2 8.5-10.1 mg/dl Magnesium Level 2.1 1.8-2.4 mg/dl Total Creatine Kinase 109 39-308 U/L Creatine Kinase MB 2.3 0.5-3.6 ng/ml Creatine Kinase MB Ratio 2.1 0-3.0 Troponin I < 0.015 0-0.045 ng/ml Nucleated RBC Absolute Count (auto) 0.02 0-0 K/uL Nucleated Red Blood Cells % 0.1 % Triglycerides Level 123 0-150 mg/dl Cholesterol Level 105 0-200 mg/dl HDL Cholesterol 31 mg/dl LDL Cholesterol, Calculated 49 mg/dl VLDL Cholesterol, Calculated 25 mg/dl Cholesterol/HDL Ratio 3.4 Test 08/01/16 07:53 08/01/16 08:33 08/01/16 08:37 Range/Units Bedside Glucose 151 70-99 mg/dl Erythrocyte Sedimentation Rate 13 0-14 mm/hr Lactic Acid Level 1.3 0.4-2.0 mmol/L Microbiology Results 08/01/16 Blood Culture, Received Pending 08/01/16 Blood Culture, Received Pending Diagnostic Radiology Carotid US: no hemodynamically significant stenosis. CT of head w/o contrast: Acute infarct of left parietal lobe with some old lacunar infarcts. No evidence of intracranial mass or bleeding. Chest Xray: Borderline cardiomegaly. No other abnormalities. EKG Sinus rhythm w/ 1st degree AV block. Impression Assessment and Plan Confusion/Difficulty speaking: This is most likely due to an acute left parietal stroke. His mild language deficits and confusion without motor or sensory deficits are consistent with the location of the lesion. He has multiple risk factors for stroke, including advanced age, HTN, DM2, and possible hypercoagulable state from cancer. We are awaiting MRI and MRA of head and neck for more confirmation, but initial imaging studies are consistent with acute ischemic CVA from decreased flow to a branch of the left MCA. His presentation could also be consistent with delirium. Given his age, and elevated WBC count this would not be unreasonable. However, he is afebrile, UA is normal, and his electrolytes show no abnormalities other than moderately decreased kidney function. With a lack of identifiable infection source or other cause of his delirium, and imaging suggestive of acute CVA this is less likely. Meningitis or meningoencephalitis could also cause confusion and parietal deficits. However, he does not display any meningeal signs and imaging is not consistent with an inflammatory process. CSF analysis has not been performed. Plan: Given that the patient was outside of the window for IV TPA, his acute management was appropriate with initiation of aspirin and a statin. We recommend switching to 10 mg of pravastatin instead of 40 of atorvastatin given the results of his lipid panel (low total cholesterol, LDL, and HDL). We have consulted PT, OT, and Speech therapy for evaluation. Their recommendations will better inform our plan for discharge. We also have ordered MRI and MRA of the head and neck, as well as an echocardiogram for further evaluation of the extent of infarction, his vascularity, and to search for an etiology of the stroke. At this point, given his lack of strength or sensory deficits, we are hopeful he will be able to return home with outpatient speech rehab. Neurology attending addendum: Patient was seen and evaluated with medical student. Please see my separate neurology consult note for full evaluation and recommendations. -Ayana Price, DO Advanced Directives Existing Living Will: Yes Existing Power of Dormitory Maid: No DVT Prophylaxis unfractionated heparin SQ
--- NOTE | 2016-08-01 10:48 | Progress Note ---
Subjective Date of Service: Aug 01, 2016. Subjective Pt evaluation today including: conversation w/ patient, physical exam, chart review, lab review, review of studies, conversation w/ [employer] infrastructure consultant, review of inpatient medication list Voiding: no voiding problems Pleasant, occasional difficulty in finding words, otherwise speak fluent sentence, awake and alert and orientated to name birthday and place , h e also known current and previous Presidents name No any complaining Nurse report had a good breakfast Problem List Medical Problems: (1) Acute CVA (cerebrovascular accident) Status: Acute (2) Expressive aphasia Status: Acute Review of Systems Constitutional: + fatigue, + weakness, No chills, No fever, No problem reported , No sweats, No weight loss Eyes: No diplopia, No discharge, No eye pain, No redness, No worsening of vision ENT: No dental problems, No hearing loss, No nasal symptoms, No sore throat, No tinnitus, No trouble swallowing, No unusual epistaxis Respiratory: No cough, No dyspnea at rest, No dyspnea on exertion, No hemoptysis, No shortness of breath, No sputum, No wheezing Cardiac: No PND, No chest pain, No claudication, No edema, No orthopnea, No palpitations Abdomen: No constipation, No diarrhea, No nausea, No pain, No vomiting Musculoskeletal: No calf pain, No joint pain, No muscle pain, No swelling Male : No dysuria, No hematuria, No incontinence, No nocturia more than once/ night, No slowing stream, No urinary frequency Neurologic: + balance problems (possible), + problem reported (difficult finding words), No numbness/tingling, No paralysis, No vertigo, No weakness Psychiatric: No anhedonism, No anxiety, No depression symptoms, No insomnia, No substance abuse Heme: No abnormal bleeding/bruising, No clotting problems, No night sweats, No swollen lymph nodes Endo: No excessive thirst, No excessive urination, No fatigue Skin: No bleeding, No color change, No itch, No new/changing skin lesions, No rash Objective Vital Signs Date Time Temp Pulse Resp B/P Pulse Ox O2 Delivery O2 Flow Rate FiO2 08/01/16 08:00 Room Air 08/01/16 07:40 36.8 81 20 117/69 98 Room Air 08/01/16 05:32 36.3 92 20 148/94 98 Room Air 08/01/16 04:00 36.3 92 20 148/94 98 Room Air 08/01/16 03:48 98 Room Air 08/01/16 02:00 36.4 92 20 153/81 98 Room Air 08/01/16 00:02 81 18 121/64 94 Room Air 07/31/16 22:25 147/73 07/31/16 22:17 90 18 95 Room Air 07/31/16 21:20 87 07/31/16 21:17 94 Room Air 07/31/16 20:15 36.8 89 18 150/82 96 Room Air Physical Exam General Appearance: WD/WN, no apparent distress, + pertinent finding (pleasant) Eyes: normal inspection, PERRL, EOMI, sclerae normal ENT: normal ENT inspection, hearing grossly normal, pharynx normal Neck: supple, no adenopathy, thyroid normal, no JVD, no carotid bruits, trachea midline Respiratory/Chest: chest non-tender, normal breath sounds, no respiratory distress, no accessory muscle use, + decreased breath sounds Cardiovascular: regular rate, rhythm, no edema, no gallop, no JVD, no murmur Abdomen: normal bowel sounds, non tender, soft, no organomegaly, no pulsatile mass Extremities: normal range of motion, non-tender, normal inspection, no pedal edema, no calf tenderness, normal capillary refill, pelvis stable Neurologic/Psychiatric: bi technical lead II-XII nml as tested, no motor/sensory deficits, alert, normal mood/affect, oriented x 3, + pertinent finding (expressive aphasia ) Skin: normal color, warm/dry, no rash Lymphatic: no adenopathy Laboratory Results Last 24 Hours Test 07/31/16 20:40 07/31/16 21:34 07/31/16 21:41 08/01/16 05:31 Urine Color YELLOW Urine Appearance CLEAR Urine pH 5.5 Urine Specific [place] 1.015 Urine Protein NEG Urine Glucose (UA) TRACE Urine Ketones NEG Urine Occult Blood NEG Urine Nitrite NEG Urine Bilirubin NEG Urine Urobilinogen NEG Urine Leukocyte Esterase NEG Urine Opiates Screen NEG Urine Methadone, Qualitative NEG Urine Barbiturates NEG Urine Phencyclidine (PCP) Level NEG Ur Amphetamine/Methamphetamine NEG MDMA (Ecstasy) Screen NEG Urine Benzodiazepines Screen NEG Urine Cocaine Metabolite NEG Urine Marijuana (THC) NEG Bedside Glucose 191 mg/dl White Blood Count 14.72 K/uL 15.61 K/uL Red Blood Count 4.78 M/uL 4.67 M/uL Hemoglobin 13.3 g/dL 13.0 g/dL Hematocrit 39.9 % 38.8 % Mean Corpuscular Volume 83.5 fL 83.1 fL Mean Corpuscular Hemoglobin 27.8 pg 27.8 pg Mean Corpuscular Hemoglobin Concent 33.3 g/dl 33.5 g/dl Platelet Count 209 K/uL 204 K/uL Mean Platelet Volume 11.3 fL 11.1 fL Neutrophils (%) (Auto) 75.1 % 76.7 % Lymphocytes (%) (Auto) 18.3 % 17.9 % Monocytes (%) (Auto) 5.3 % 4.4 % Eosinophils (%) (Auto) 0.8 % 0.6 % Basophils (%) (Auto) 0.1 % 0.1 % Neutrophils # (Auto) 11.05 K/uL 11.98 K/uL Lymphocytes # (Auto) 2.70 K/uL 2.80 K/uL Monocytes # (Auto) 0.78 K/uL 0.69 K/uL Eosinophils # (Auto) 0.12 K/uL 0.09 K/uL Basophils # (Auto) 0.01 K/uL 0.01 K/uL RDW Standard Deviation 40.7 fL 40.5 fL RDW Coefficient of Variation 13.4 % 13.4 % Immature Granulocyte % (Auto) 0.4 % 0.3 % Immature Granulocyte # (Auto) 0.06 K/uL 0.04 K/uL Prothrombin Time 10.0 SECONDS Prothromb Time International Ratio 0.9 Activated Partial Thromboplast Time 26.8 SECONDS Partial Thromboplastin Ratio 1.0 Sodium Level 139 mmol/L 141 mmol/L Potassium Level 4.4 mmol/L 4.1 mmol/L Chloride Level 108 mmol/L 109 mmol/L Carbon Dioxide Level 20 mmol/L 21 mmol/L Anion Gap 11.0 mmol/L 11.0 mmol/L Blood Urea Nitrogen 22 mg/dl 20 mg/dl Creatinine 1.60 mg/dl 1.50 mg/dl Est Creatinine Clear Calc Drug Dose 35.3 ml/min 37.6 ml/min Estimated GFR () 45.8 49.5 Estimated GFR (Non- 39.5 42.7 BUN/Creatinine Ratio 13.8 13.1 Random Glucose 197 mg/dl 174 mg/dl Estimated Average Glucose 183 mg/dl Hemoglobin A1c 8.0 % Calcium Level 8.4 mg/dl 8.2 mg/dl Magnesium Level 2.1 mg/dl Total Creatine Kinase 109 U/L Creatine Kinase MB 2.3 ng/ml Creatine Kinase MB Ratio 2.1 Troponin I < 0.015 ng/ml Nucleated RBC Absolute Count (auto) 0.02 K/uL Nucleated Red Blood Cells % 0.1 % Triglycerides Level 123 mg/dl Cholesterol Level 105 mg/dl HDL Cholesterol 31 mg/dl LDL Cholesterol, Calculated 49 mg/dl VLDL Cholesterol, Calculated 25 mg/dl Cholesterol/HDL Ratio 3.4 Test 08/01/16 07:53 08/01/16 08:33 08/01/16 08:37 Bedside Glucose 151 mg/dl Erythrocyte Sedimentation Rate 13 mm/hr C-Reactive Protein < 0.29 mg/dl Thyroid Stimulating Hormone (TSH) 2.020 uIu/ml Lactic Acid Level 1.3 mmol/L Assessment and Plan 81 y/o M w/Hx HTN, NIDDM admitted because of possible acute CVA with expressive aphasia and confuse on on 08/01/2016 Per H&P, Pts reported that he was acting slightly confused around noon and had decided to take a nap therefore. Upon waking up his confusion persisted and his ultimately contacted EMS to transport him to the hospital. He has a degree of both expressive and receptive aphasia on admission. He was sent for a CT head which revealed what is likely an acute L parietal CVA. He presented well out of the window for TPA consideration. Acute CVA: Possible improving and stable Carotid Doppler ultrasound was done was not remarkable Echo is pending Brain MRI is pending Neuro input appreciated Continue ASA Continue pravastatin low dose and low potent Statin because his LDL is less than 70 , and total cholesterol less than 200, Stroke risk factor modifications: normotensive blood pressure, BP<130/80 Avoid dehydration and hypotension Total cholesterol goal less than 200 and LDL goal less than 100 Hemoglobin A1c goal less than 7 (currently not at goal) HTN - HCTZ/Lisinopril was held acute CVA, for permissive hypertension However after 24 hours with gradually control the blood pressure to target level Blood pressure is fairly controlled for now uncontrolled DM 2, with A1c 8.0, was on Januvia and glipizide at home, which is on hold possible because of kidney function, I will give Amaryl renal dose for now Continue on sliding scale , 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
[2016-08-01] MEDS ORDERED: GLIMEPIRIDE 2 MG TAB PO ONE (11:00)
[2016-08-01] MEDS ORDERED: MAGNEVIST IV PRN (12:00)
--- NOTE | 2016-08-01 12:04 | DIAGNOSTIC IMAGING REPORT ---
MR ANGIOGRAM OF THE BRAIN CLINICAL HISTORY: Stroke. COMPARISON STUDY: MRI of the brain performed concurrently on 08/01/2016. TECHNIQUE: 3-D [id number] MR angiography of the intracranial circulation is performed. 3-D tumble views are created and assessed. IV contrast was not administered for this examination. FINDINGS: The internal carotid arteries are widely patent bilaterally, as are the anterior and middle cerebral arteries. The vertebrobasilar system and posterior cerebral arteries are widely patent. The left vertebral artery is dominant. The right vertebral artery terminates as the PICA. There is no aneurysm, high-grade stenosis, or focal vessel cutoff seen throughout the intracranial circulation. IMPRESSION: Unremarkable MR angiogram of the brain. Electronically signed by: Job Galeano M.D. 08/01/2016 12:03 PM Dictated Date/Time: 08/01/2016 12:01 PM
--- NOTE | 2016-08-01 12:11 | DIAGNOSTIC IMAGING REPORT ---
MR ANGIOGRAM OF THE NECK COMBO CLINICAL HISTORY: Stroke. COMPARISON STUDY: Carotid artery ultrasound dated 08/01/2016. TECHNIQUE: Axial 2-D [id number] MR angiography of the neck is performed. Subsequently, following the IV administration of 20 cc of Magnevist coronal MR angiogram of the neck was performed to corroborate the findings. 3-D reformats are created and assessed. All measurements were calculated based on NASCET criteria. The unenhanced axial sequences degraded by motion artifact. FINDINGS: Visualized portions of the thoracic aorta are normal in caliber. The aortic arch demonstrates standard 3 vessel anatomy. The subclavian arteries are widely patent bilaterally. The right common carotid artery is widely patent, as are the right internal and external carotid arteries. The left common carotid artery is widely patent, as are the left internal and external carotid arteries. The vertebral arteries are widely patent noting left-sided dominance. The right vertebral artery terminates as the PICA. Visualized intracranial vessels at the skull base appear patent. IMPRESSION: Unremarkable MR angiogram of the neck. Electronically signed by: Job Galeano M.D. 08/01/2016 12:10 PM Dictated Date/Time: 08/01/2016 12:08 PM
--- NOTE | 2016-08-01 12:28 | DIAGNOSTIC IMAGING REPORT ---
MRI OF THE BRAIN WITHOUT IV CONTRAST CLINICAL HISTORY: Stroke. COMPARISON STUDY: CT of the brain dated 07/31/2016. TECHNIQUE: MRI of the brain was performed utilizing various T1 and T2-weighted sequences in the axial, sagittal, and coronal planes. IV contrast was not administered for this examination. The examination is modestly degraded by motion artifact. FINDINGS: Brain parenchyma: There is an approximately 4.5 cm region of restricted diffusion identified in the left posterior parietal lobe consistent with acute to subacute ischemia this corresponds to mildly seen on yesterday's CT scan of the brain. No additional foci of restricted diffusion are identified. There is no hemorrhage or mass effect. There are age-related involutional changes noting moderate subcortical and periventricular microangiopathic disease. Small chronic lacunar infarcts are identified within the cerebellar hemispheres and both thalami. Numerous perivascular spaces are present within the basal ganglia. No extra-axial fluid collection is seen. The cerebellar tonsils are normal in configuration. Ventricles, sulci, and cisterns: Prominent secondary to involutional change. Pituitary and sella: Unremarkable. Intracranial vasculature: Normal flow voids are maintained at the skull base. Orbits: The bony orbits are grossly intact. Orbital contents are normal in appearance. Sinuses and mastoids: There are bilateral mastoid effusions, left larger than right. The paranasal sinuses are clear. Calvarium: Unremarkable. Cervical cord: Partially visualized cervical spinal cord is normal in morphology and signal intensity. IMPRESSION: 1. There is a large evolving infarct identified in the left parietal lobe. 2. No additional foci of ischemia are identified. There is no hemorrhage or midline shift. 3. Additional senescent changes as above. 4. Mastoid effusions. Electronically signed by: Job Galeano M.D. 08/01/2016 12:27 PM Dictated Date/Time: 08/01/2016 12:23 PM
[2016-08-01] MEDS ORDERED: PRAVASTATIN SOD 10 MG TAB PO SCH (17:00)
[2016-08-01] MEDS ORDERED: ALFUZosin TAB 10 MG TAB PO SCH (21:00)
[2016-08-02 04:56] VITALS: BP 115/66; PULSE 73; TEMP 36.7; O2SAT 98
[2016-08-02] MEDS: LEVOTHYROXINE 50 MCG TAB PO SCH (05:23)
[2016-08-02] MEDS: HEPARIN SOD 5000 UNIT/0.5 ML CARP SQ SCH (05:25)
[2016-08-02 06:26] LABS: BASO % 0.1 %; BASO ABS # 0.01 K/uL (0-0.2); COMPLETE YES; EOS % 0.3 %; HEMATOCRIT 39.5 % (42-52); IG% 0.4 %; LYMPH % 20.1 %; LYMPH ABS # 2.57 K/uL (1.2-3.4); MEAN CELL VOLUME 82.3 fL (80-100); MEAN CORPUSCULAR HEMOGLOBIN 28.3 pg (25-34); MEAN CORPUSCULAR HGB CONC 34.4 g/dl (32-36); MEAN PLATELET VOLUME 11.4 fL (7.4-10.4); MONO % 5.9 %; NEUT % 73.2 %; PLATELET COUNT 206 K/uL (130-400)
[2016-08-02 06:56] LABS: BUN/CREATININE RATIO 15.7 (10-20); CALCIUM 8.6 mg/dl (8.5-10.1); CREATININE 1.6 mg/dl (0.60-1.40); POTASSIUM 4.2 mmol/L (3.5-5.1)
[2016-08-02 07:31] VITALS: BP 130/78; PULSE 77; TEMP 36.9; O2SAT 96
[2016-08-02] MEDS: ASPIRIN 325 MG ECTAB PO SCH (08:05)
[2016-08-02] MEDS: INSULIN ASPART 100 UNITS/ML 3 ML PEN SC SCH (08:08)
[2016-08-02] MEDS ORDERED: GLIMEPIRIDE 2 MG TAB PO SCH (09:00)
[2016-08-02] MEDS ORDERED: AMR2 PO (10:04)
[2016-08-02] MEDS ORDERED: ASPEC81 PO (10:04)
[2016-08-02] MEDS ORDERED: PRVC10 PO (10:04)
--- NOTE | 2016-08-02 10:07 | Discharge Instructions ---
Discharge Instructions Admission Reason for Admission: Acute Cva Discharge Discharge Diagnosis / Problem: acute left parietal CVA Discharge Goals Goal(s): Decrease discomfort, Improve function, Increase independence, Improve disease control, Improve nutritional status, Learn about illness, Diagnostic testing, Therapeutic intervention, Prevent Disease Progression, Specific goals Activity Recommendations Activity Limitations: resume your previous activity (fall precaution) Lifting Limitations: none Exercise/Sports Limitations: none May Resume Sexual Activity: when tolerated Shower/Bathe: no limitations Driving or Machine Use: after seeing by PCP . Instructions / Follow-Up Instructions / Follow-Up you have Acute stoke improving and stable you need to Continue Aspirin, Pravastatin you need to continue your blood pressure, diabetics control you need to have Labs of BMP checked in the follow up visit with your pcp you need to be seen by pcp in 5-7 days to adjust medicine I stop your diabetic medicine such as Saxagliptin and and Glipizide, just want to be cautious when your kidney function is decreased I am giving new RX of Amaryl renal dose Continue on sliding scale , you need to have family member supervision you closely when at home - you need to follow up with neurologist Dr. Price in 2-3 weeks, RN please give phone number for pt and family to call to get appointment - take medication as instructed, never overdose or any misuse, or take with alcohol, because misuse of medicine may cause organ damage or , call your primary care physician if have questions of medicaitons. - call your primary care physician OR go to local emergency room if has any fever/chill, chest pain, shortness of breathing, nausea/vomiting/abdominal pain , facial droop/slurry speech/local weakness, or if has any questions. - fall precaution - diet as instructed - you should understand that it is important to follow up the above instruction , and "not following the above instruction" may cause delayed or missed care of your medical conditions which may cause permanent organ damage and even . Risk Factors for Stroke: You can reduce your chances of stroke by working with your medical provider to adopt a healthy lifestyle. Some specific ways to lower your chance of stroke are: * If you are a smoker, now is the time to stop smoking cigarettes * If you are diabetic, improve the control of your blood sugars * Avoid excessive amounts of alcohol * Control high blood pressure * Lose weight if you are overweight * Be sure to lead an active lifestyle * Eat a healthy diet low in salt, cholesterol and fat You should know about other risk factors for stroke that you are unable to control. These include: * Age 55 years or older * Male gender * Certain racial groups: , or / * Family History of Stroke, Mini stroke or Heart Attack * Sickle Cell Disease Follow Up: It is important for you to keep your follow up appointments with your medical provider. Current Hospital Diet Patient's current hospital diet: AHA Diet (Heart Healthy), Diabetes Type 2 Diet Discharge Diet Recommended Diet: Diabetes Type 2 Diet Procedures Procedures Performed: No Pending Studies Studies pending at discharge: no Laboratory Results Hemoglobin A1c Test 07/31/16 21:41 Range/Units Estimated Average Glucose 183 mg/dl Hemoglobin A1c 8.0 H 4.5-5.6 % Lipid Panel Test 08/01/16 05:31 Range/Units Triglycerides Level 123 0-150 mg/dl Cholesterol Level 105 0-200 mg/dl HDL Cholesterol 31 mg/dl Cholesterol/HDL Ratio 3.4 LDL Cholesterol, Calculated 49 mg/dl Medical Emergencies . Who to Call and When: Medical Emergencies: Call 911 immediately if you experience any of the following warning signs and symptoms of Stroke: * Sudden numbness or weakness of the face, arm or leg, especially on one side of the body * Sudden confusion, trouble speaking or understanding * Sudden trouble seeing in one or both eyes * Sudden trouble walking, dizziness, loss of balance or coordination * Sudden severe headache with no cause Do not delay calling 911 if you experience any warning signs or symptoms of a stroke. Delay in seeking medical attention may affect what treatments can be given to you. . Non-Emergent Contact Non-Emergency issues call your: Primary Care Provider, Neurologist . . "Provider Documentation" section prepared by Earl Goldberg. Stroke Core Measures Reason no t-PA for Stroke: Contraindicated Reason no antithrom by day 2: Treatment provided - N/A Reason no antithrom at D/C: Treatment provided - N/A Reason no statin at D/C: Treatment provided - N/A Reason no anticoag w/a fib: Treatment not indicated VTE Core Measure Inpt VTE Proph given/why not?: Unfractionated heparin SQ
[2016-08-02 10:42] VITALS: BP 130/78; PULSE 77; TEMP 36.9; O2SAT 96
--- NOTE | 2016-08-02 10:43 | Discharge Summary ---
Discharge Summary Admission Date: Jul 31, 2016 at 22:55 Discharge Date: Aug 02, 2016 Discharge Disposition: Home Principal Diagnosis: Acute CVA Problems/Secondary Diagnoses: HTN DMII CKD stage III Procedures: No Consultations: Neurologist Medication Reconciliation New Medications: Aspirin (Aspirin EC Low Dose) 81 Mg Ectab 81 MG PO DAILY, #30 Glimepiride (Glimepiride) 2 Mg Tab 1 MG PO QAM for 30 Days, #15 TAB Pravastatin Sod (Pravastatin Sodium) 10 Mg Tab 10 MG PO DAILY@17 for 30 Days, TAB Continued Medications: Alfuzosin Hcl (Uroxatral) 10 Mg Tab 10 MG PO QPM, TAB Levothyroxine Sodium (Levothyroxine Sodium) 50 Mcg Tab 1 TAB PO QAM for 90 Days, #90 TAB 3 Refills Oxycodone/Acetaminophen 5MG/325MG (Percocet 5MG/325MG) Tab 1-2 TABLETS PO Q4H PRN for Pain, #20 TAB Discontinued Medications: Hctz/Lisinopril (Lisinopril/Hctz 20/25 Mg) 1 Ea Tab 1 TAB PO QAM, TAB Metformin Hcl (Glucophage) 1,000 Mg Tab 1000 MG PO BID, TAB [Saxagliptin] () 2.5 MG PO DAILY Discharge Exam Continue doing well, expressive aphasia is improving, no any deficits, no any other complaint Review of Systems: Constitutional: No chills, No fatigue, No fever, No problem reported, No sweats, No weakness, No weight loss Eyes: No diplopia, No discharge, No eye pain, No problem reported, No redness, No worsening of vision ENT: No dental problems, No hearing loss, No nasal symptoms, No problem reported, No sore throat, No tinnitus, No trouble swallowing, No unusual epistaxis Respiratory: No cough, No dyspnea at rest, No dyspnea on exertion, No hemoptysis, No problem reported, No shortness of breath, No sputum, No wheezing Cardiovascular: No PND, No chest pain, No claudication, No edema, No orthopnea, No palpitations, No problem reported Abdomen: No GI bleeding, No constipation, No diarrhea, No nausea, No pain, No problem reported, No vomiting Musculoskeletal: No calf pain, No joint pain, No muscle pain, No problem reported, No swelling Genitourinary - Male: No dysuria, No hematuria, No impotence, No lesions, No penile discharge, No problem reported, No urinary frequency, No urinary hesitancy, No urinary incontinence, No urinary retention, No urinary urgency Neurologic: No balance problems, No memory loss, No numbness/tingling, No paralysis, No problem reported, No vertigo, No weakness Psychiatric: No anhedonism, No anxiety, No depression symptoms, No insomnia , No problem reported, No substance abuse Endocrine: No excessive thirst, No excessive urination, No fatigue, No problem reported Hematologic / Lymphatic: No abnormal bleeding/bruising, No clotting problems , No night sweats, No problem reported, No swollen lymph nodes Integumentary: No bleeding, No color change, No itch, No new/changing skin lesions, No problem reported, No rash Physical Exam: General Appearance: WD/WN, no apparent distress Eyes: normal inspection, PERRL, EOMI ENT: normal ENT inspection, hearing grossly normal, TMs normal, pharynx normal Neck: supple, no adenopathy, thyroid normal, no JVD Respiratory/Chest: chest non-tender, normal breath sounds, no respiratory distress, no accessory muscle use, + decreased breath sounds Cardiovascular: regular rate, rhythm, no edema, no gallop, no JVD, no murmur , normal peripheral pulses Abdomen / GI: normal bowel sounds, non tender, soft, no organomegaly, no pulsatile mass, normal rectal exam, occult blood negative Extremities: normal inspection, no calf tenderness, normal capillary refill , no pedal edema, normal range of motion Neurologic/Psychiatric: marble polisher II-XII nml as tested, no motor/sensory deficits , alert, normal mood/affect, normal reflexes, oriented x 3, + pertinent finding (no more expressive aphasia ) Skin: normal color, warm/dry Hospital Course 81 y/o M w/Hx HTN, NIDDM admitted because of possible acute CVA with expressive aphasia and confuse on 08/01/2016 Per H&P, Pts reported that he was acting slightly confused around noon and had decided to take a nap therefore. Upon waking up his confusion persisted and his ultimately contacted EMS to transport him to the hospital. He has a degree of both expressive and receptive aphasia on admission. He was sent for a CT head which revealed what is likely an acute L parietal CVA. He presented well out of the window for TPA consideration. Acute CVA: continue improving and stable Carotid Doppler ultrasound was done was not remarkable Echo was ordered , was completed , no formal report yet , and I told patient to follow-up the echo results with PCP, PCP please follow-up this Brain MRI is pending Neuro input appreciated Continue ASA Continue pravastatin low dose and low potent Statin because his LDL is less than 70 , and total cholesterol less than 200, Stroke risk factor modifications: normotensive blood pressure, BP<130/80 Avoid dehydration and hypotension Total cholesterol goal less than 200 and LDL goal less than 100 Hemoglobin A1c goal less than 7 (currently not at goal) HTN - HCTZ/Lisinopril was held acute CVA, for permissive hypertension However after 24 hours with gradually control the blood pressure to target level Blood pressure is fairly controlled for now uncontrolled DM 2, with A1c 8.0, was on Metformin and Saxagliptin at home, which is on hold because of kidney function, I will continue to hold Metformin and Saxagliptin , and I am giving Amaryl renal dose to home , pcp please continue to follow up the medicine adjustment Likely CK disease stage III with elevated to creatinine at 1.6 from 1.5, which is in baseline, we'll follow-up Today in the bedside, with present of patient, , son, and daughter in low , up dated them patient's conditions and discharge plan, I recommend then to keep a close supervision on the patient, about fall precautions and signs of recurrent CVA I addressed to name there stroke prevention and secondary prevention on the CVA is the very important that the patient There are understand and agreed full code nstructions / Follow-Up you have Acute stoke improving and stable you need to Continue Aspirin, Pravastatin you need to continue your blood pressure, diabetics control you need to have Labs of BMP checked in the follow up visit with your pcp you need to be seen by pcp in 5-7 days to adjust medicine I stop your diabetic medicine such as Saxagliptin and and Glipizide, just want to be cautious when your kidney function is decreased I am giving new RX of Amaryl renal dose Continue on sliding scale , you need to have family member supervision you closely when at home - you need to follow up with neurologist Dr. Price in 2-3 weeks, RN please give phone number for pt and family to call to get appointment - take medication as instructed, never overdose or any misuse, or take with alcohol, because misuse of medicine may cause organ damage or , call your primary care physician if have questions of medicaitons. - call your primary care physician OR go to local emergency room if has any fever/chill, chest pain, shortness of breathing, nausea/vomiting/abdominal pain , facial droop/slurry speech/local weakness, or if has any questions. - fall precaution - diet as instructed - you should understand that it is important to follow up the above instruction , and "not following the above instruction" may cause delayed or missed care of your medical conditions which may cause permanent organ damage and even . 40 minutes Total Time Spent: Greater than 30 minutes This includes examination of the patient, discharge planning, medication reconciliation, and communication with other providers. Discharge Instructions Please refer to the electronic Patient Visit Report (Discharge Instructions) for additional information. Additional Copies To Ayana Price D.O.; Michael Solorio M.D.
--- NOTE | 2016-08-02 12:57 | Pharmacy Progress Note ---
Pharmacist Stroke Counseling Date of Service Aug 02, 2016. Scope Pharmacy has been consulted to provide medication discharge counseling for this patient admitted with ischemic stroke/hemorrhagic stroke/ transient ischemic attack as per the Pharmacist Discharge Counseling for Stroke Patients Protocol. Medications on Discharge New Medications: Aspirin (Aspirin EC Low Dose) 81 Mg Ectab 81 MG PO DAILY, #30 Glimepiride (Glimepiride) 2 Mg Tab 1 MG PO QAM for 30 Days, #15 TAB Pravastatin Sod (Pravastatin Sodium) 10 Mg Tab 10 MG PO DAILY@17 for 30 Days, TAB Continued Medications: Alfuzosin Hcl (Uroxatral) 10 Mg Tab 10 MG PO QPM, TAB Levothyroxine Sodium (Levothyroxine Sodium) 50 Mcg Tab 1 TAB PO QAM for 90 Days, #90 TAB 3 Refills Oxycodone/Acetaminophen 5MG/325MG (Percocet 5MG/325MG) Tab 1-2 TABLETS PO Q4H PRN for Pain, #20 TAB Discontinued Medications: Hctz/Lisinopril (Lisinopril/Hctz 20/25 Mg) 1 Ea Tab 1 TAB PO QAM, TAB Metformin Hcl (Glucophage) 1,000 Mg Tab 1000 MG PO BID, TAB [Saxagliptin] () 2.5 MG PO DAILY Glipizide 10mg po BID was also discontinued Action The above medications, specifically ones for stroke treatment/prophylaxis, have been reviewed in detail with the patient and/or patient abrasives sales representative(s) prior to discharge. This includes indication, common adverse reactions, drug interactions, and medication administration. Medication counseling has been employed using the teach-back method to ensure understanding. Outcome The patient and/or patient abrasives sales representative(s) have demonstrated understanding of the medications. Please note, they are aware that the pharmacist will call them within 72 hours post-discharge to confirm that the appropriate medications are being taken and answer any further medication related questions the patient might have at that time. Contact information Individual to be contacted: Patient (Dm Mares) Relationship to patient (if applicable): Self Phone number: [phone] Best time to call: Any time, maybe after 1:00 PM Additional comments: - Met with patient, , and his family in room prior to discharge. Patient obtains medications from the [place]. He seems to be familiar with the names of his medications and how to take them. Overall seems to understand why he is taking Rx's. - This is the patient's first stroke. Explained that new Rx added to prevent current stroke. Explained benefits and mechanisms. Reviewed s/sx recurrent stroke to monitor for. Patient has never taken aspirin before. Explained that he can purchase OTC. Recommended he purchase enteric coated aspirin to improve GI tolerance. Patient aware to monitor for s/sx bleeding/bruising. He was wondering why he needs a statin when his cholesterol is "low". Explained that statins shown in clinical trials to prevent recurrent stroke despite LDL. Advised to monitor for myopathy. - admits that patient has a bad diet (candy, etc) - Explained that Hospitalist discontinued his Metformin, Onglyza, Lisinopril/ HCTZ, and Glipizide secondary to concerns for his renal function. Glipizide was changed to Glimepiride as Dr. Goldberg thinks it will be safer and has lower risk for hypoglycemia. It appears that his sCr has not changed much recently. It is likely ok for patient to remain on some of these medications. Advised patient to f/u with PCP Dr. Solorio to see if he agrees with the Hospitalist's changes. Patient aware to HOLD the discontinued medications. He also understands that Glimepiride "replaces" Glipizide. Of note: Originally Dr. Goldberg' s discharge orders had for patient to take both Glimepiride and Glipizide. Intervention was made by Robot Operator to D/C Glipizide from Discharge Med List due to error/duplicate error prior to discharge counseling being provided. Communicated this to RN. - Pillbox was given to patient - Patient was pleasant and appreciative of education provided. Agreeable to phone f/u. Spent ~30 minutes with patient/family. Thank you for allowing pharmacy to be involved in the care of this patient. Please call [phone] with any additional questions
--- NOTE | 2016-08-02 14:22 | ECHOCARDIOGRAM REPORT ---
*NOTICE TO RECEIVING DEMOCRAT AGENCY This information is strictly Confidential and protected under [place] law. [place] law prohibits you from making any further disclosure of this information unless further disclosure is expressly permitted by the written consent of the person to whom it pertains or is authorized by law. A general authorization for the release of medical or other information is not sufficient for this purpose. Hospital accepts no responsibility if the information is made available to any other person, INCLUDING THE PATIENT. Interpretation Summary * Name: BATSHEVA WATT Study Date: 08/01/2016 02:47 PM BP: 121/77 mmHg * Patient Location: [facility] HR: 95 * : 1935 (M/d/yyyy) Gender: Male Height: 65 in * Age: 81 yrs Ethnicity: CA Weight: 183 lb * Ordering Physician: Jani Mixon * * Reason For Study: CVA * BSA: 1.9 m2 * History: CVA * -- Conclusions -- * The left ventricle is normal in size. * There is normal left ventricular wall thickness. * Left ventricular systolic function is normal. * Ejection Fraction = 60-65%. * Grade I diastolic dysfunction, (abnormal relaxation pattern). * The left ventricular wall motion is normal. * No significant valvular disease on mildly technically limited Doppler. Procedure Details * Left Ventricle The left ventricle is normal in size. There is normal left ventricular wall thickness. Ejection Fraction = 60-65%. Left ventricular systolic function is normal. The left ventricular wall motion is normal. * Right Ventricle The right ventricle is normal in size and function. * Atria The left atrial size is normal. Right atrial size is normal. The interatrial septum is intact with no evidence for an atrial septal defect. * Mitral Valve The mitral valve is normal in structure and function. Significant mitral regurgitation is absent. * Tricuspid Valve The tricuspid valve is normal in structure and function. Significant tricuspid regurgitation is absent. * Aortic Valve The aortic valve is normal in structure and function. There is no significant aortic regurgitation. * Pulmonic Valve The pulmonic valve is not well seen, but is grossly normal. There is no significant pulmonary regurgitation. * Great Vessels The aortic root is normal size. Aortic arch of normal dimension. No obvious dissection could be visualized. The pulmonary artery is not well visualized, but is probably normal size. * Pericardium/Pleural There is no pericardial effusion. * Great Vessels Normal inferior vena cava diameter and respiratory variation suggests normal central venous pressure. * Left Ventricular Diastolic Function Grade I diastolic dysfunction, (abnormal relaxation pattern). * * MMode 2D Measurements and Calculations * Ao root diam 3.8 cm * Ao root area 11.3 cm\S\2 * LA dimension 3.2 cm * * LA/Ao 0.84 * * LVAd ap4 25.1 cm\S\2 * LVLd ap4 7.5 cm * EDV(MOD-sp4) 70.5 ml * EDV(sp4-el) 71.4 ml * LVAs ap4 13.9 cm\S\2 * LVLs ap4 6.8 cm * ESV(MOD-sp4) 24.0 ml * ESV(sp4-el) 24.5 ml * EF(MOD-sp4) 66.0 % * EF(sp4-el) 65.7 % * * LVAd ap2 23.6 cm\S\2 * LVLd ap2 8.3 cm * EDV(MOD-sp2) 54.6 ml * EDV(sp2-el) 57.2 ml * LVAs ap2 13.3 cm\S\2 * LVLs ap2 6.7 cm * ESV(MOD-sp2) 22.2 ml * ESV(sp2-el) 22.5 ml * EF(MOD-sp2) 59.3 % * EF(sp2-el) 60.7 % * * LVLd %diff 9.4 % * EDV(MOD-bp) 64.4 ml * LVLs %diff -0.75 % * ESV(MOD-bp) 23.0 ml * EF(MOD-bp) 64.2 % * * SV(MOD-sp4) 46.6 ml * SI(MOD-sp4) 24.4 ml/m\S\2 * * SV(MOD-sp2) 32.4 ml * SI(MOD-sp2) 17.0 ml/m\S\2 * * SV(MOD-bp) 41.4 ml * SI(MOD-bp) 21.7 ml/m\S\2 * * SV(sp4-el) 46.9 ml * SI(sp4-el) 24.6 ml/m\S\2 * * SV(sp2-el) 34.7 ml * SI(sp2-el) 18.2 ml/m\S\2 * * * * * Doppler Measurements and Calculations * MV E max guadalupe 78.9 cm/sec * MV A max guadalupe 133.7 cm/sec * * MV E/A 0.59 * * MV dec time 0.21 sec * * Ao V2 max 119.8 cm/sec * Ao max PG 5.7 mmHg * Ao max PG (full) -0.11 mmHg * * LV V1 max PG 5.9 mmHg * * LV V1 max 121.0 cm/sec * * * *
--- NOTE | 2016-08-05 14:38 | Pharmacy Progress Note ---
Pharmacist Post D/C Phone Note Date of phone call: Aug 05, 2016. Individual with whom pharmacist spoke to: Patient Medications Dose Route/Sig Max Daily Dose Days Date Category Aspirin EC Low Dose (Aspirin) 81 Mg Ectab 81 Mg PO DAILY 08/02/16 Rx Glimepiride 2 Mg Tab 1 Mg PO QAM 30 08/02/16 Rx Pravastatin Sodium (Pravastatin Sod) 10 Mg Tab 10 Mg PO DAILY@17 30 08/02/16 Rx Percocet 5MG/325MG (Oxycodone/Acetaminophen) Tab 1-2 Tablets PO Q4H PRN 03/11/16 Rx Uroxatral (Alfuzosin HCl) 10 Mg Tab 10 Mg PO QPM 03/06/16 Reported Levothyroxine Sodium 50 Mcg Tab 1 Tab PO QAM 90 03/06/16 Reported The following questions were reviewed during the phone call with responses listed below each: Can you tell me the medications that you are currently taking as well as when and how you take each medication? - Patient is taking Glimepiride incorrectly. He has been taking Glimepiride 2mg po daily in the AM (variably with breakfast). I informed him that the discharging physician intended for him to take only Glimepiride 1mg daily WITH BREAKFAST. Pt reviewed his bottle closer and realized he was suppose to be taking only Glimepiride 1mg po daily with breakfast. - Confirmed he is taking the enteric coated Aspirin product. - Informed pt that Levothyroxine should be taken on an empty stomach with water 30-60 minutes prior to breakfast. He expressed understanding. - Patient denies taking Percocet. Says he takes no pain medication. - Taking Pravastatin daily at 1730. - Taking Alfuzosin daily at 2100. -Confirmed he has stopped taking HCTZ/lisinopril, Metformin, Saxagliptin, and Glipizide. When have you missed any doses of your medications? - None missed What side effects are you having from your medications? - None noted What questions do you have about your medications? - Patient asked about various names of medications (i.e. comparing brand vs generic name). What problems are you having obtaining your medications? - [facility] He is buying ASA over the counter. Glimepiride was [facility] locally at [facility]. When is your next appointment with your primary care doctor? - 08/08/[address] Solorio As per the Pharmacist Discharge Counseling for Stroke Patients Protocol, this phone call has been completed within 72 hours of discharge. Thank you for allowing us to be involved in the care of this patient. Thank you for allowing us to be involved in the care of this patient.
[2016-11-19] MEDS ORDERED: CARB-157 PO (14:45)
== END 2016-08-02 11:58 | disposition home or self-care (01) | DRG 66 ==
LOC: ENRESERVDT → ENRESERVTM → EDUNIT# 20:07 → C.EDC 20:09 → C.MED 22:55
PROVIDERS: ADMIT Internal Medicine; ATTEND Hospitalist
DX: I63.9 Cerebral infarction, unspecified (principal); E11.65 Type 2 diabetes mellitus with hyperglycemia; E11.22 Type 2 diabetes mellitus with diabetic chronic kidney disease; N18.3 Chronic kidney disease, stage 3 (moderate); F80.1 Expressive language disorder; E03.9 Hypothyroidism, unspecified; R41.0 Disorientation, unspecified; I12.9 Hypertensive chronic kidney disease with stage 1 through stage 4 chronic kidney disease, or unspecified chronic kidney disease; Z85.51 Personal history of malignant neoplasm of bladder; Z87.891 Personal history of nicotine dependence; Z85.46 Personal history of malignant neoplasm of prostate; Z85.038 Personal history of other malignant neoplasm of large intestine; Z79.84 Long term (current) use of oral hypoglycemic drugs; Z79.899 Other long term (current) drug therapy; Z79.891 Long term (current) use of opiate analgesic

== ENCOUNTER → 2016-07-31 | Outpatient (CLI) | payer OTHER ==
[~2016-07-31] MED LIST: ALFU10TA30 PO; AMR2 PO; ASPEC81 PO; CARB-157 PO; GLIM1TAB2 PO; GLIP-199 PO; LEVO50TA6 PO; LSN/2025 PO; METF-384 PO; ONGLYZA PO; OXYC-57 PO; PRVC10 PO; SAXAGLIPTIN PO; SUPER BETA PROSTATE PO
[2016-07-31 12:28] LABS: BASO % 0.1 %; BASO ABS # 0.01 K/uL (0-0.2); COMPLETE YES; EOS % 0.6 %; HEMATOCRIT 41.3 % (42-52); IG% 0.5 %; LYMPH % 18.9 %; LYMPH ABS # 2.65 K/uL (1.2-3.4); MEAN CELL VOLUME 83.9 fL (80-100); MEAN CORPUSCULAR HEMOGLOBIN 28.5 pg (25-34); MEAN CORPUSCULAR HGB CONC 33.9 g/dl (32-36); MEAN PLATELET VOLUME 11.9 fL (7.4-10.4); MONO % 4.4 %; NEUT % 75.5 %; PLATELET COUNT 232 K/uL (130-400); RED BLOOD COUNT 4.92 M/uL (4.7-6.1); WHITE BLOOD COUNT 14.01 K/uL (4.8-10.8)
[2016-07-31 12:48] LABS: ALT/SGPT 18 U/L (12-78); AST/SGOT 12 U/L (15-37); BLOOD UREA NITROGEN 20 mg/dl (7-18); CALCIUM 8.4 mg/dl (8.5-10.1); CARBON DIOXIDE 23 mmol/L (21-32); CHLORIDE 106 mmol/L (98-107); CHOLESTEROL 115 mg/dl (0-200); GLUCOSE 152 mg/dl (70-99); POTASSIUM 4.4 mmol/L (3.5-5.1); SODIUM 139 mmol/L (136-145)
[2016-07-31 13:00] LABS: ALB/GLOB RATIO 1.3 (0.9-2); ALKALINE PHOSPHATASE 56 U/L (45-117); CHOLESTEROL/HDL RATIO 3.8; HDL CHOLESTEROL 30 mg/dl; LDL CHOLESTEROL CALCULATED 53 mg/dl; TRIGLYCERIDES 160 mg/dl (0-150); VERY LOW DENSITY LIPOPROT CALC 32 mg/dl
[2016-07-31 13:41] LABS: ESTIMATED AVERAGE GLUCOSE 180 mg/dl; HA1C FLAG Normal (Normal)
== END | disposition home or self-care (01) ==
LOC: C.LABBFT 08:47
PROVIDERS: ATTEND Internal Medicine
DX: E03.9 Hypothyroidism, unspecified (principal); E11.65 Type 2 diabetes mellitus with hyperglycemia

== ENCOUNTER → 2016-08-16 | Outpatient (CLI) | payer OTHER ==
[~2016-08-16] MED LIST changes: +AMR2 PO; +ASPEC81 PO; +CARB-157 PO; +GLIM1TAB2 PO; -GLIP-199 PO; -LSN/2025 PO; -METF-384 PO; -ONGLYZA PO; +PRVC10 PO; -SUPER BETA PROSTATE PO
--- NOTE | 2016-08-16 17:39 | EEG Procedure Note ---
EEG Procedure Note Date of Service Aug 16, 2016. 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 EEG for further evaluation of seizure-like activity. Home Medication List Scheduled Alfuzosin Hcl (Uroxatral), 10 MG PO QPM Aspirin (Aspirin EC Low Dose), 81 MG PO DAILY Glimepiride (Glimepiride), 1 MG PO QAM Levothyroxine Sodium (Levothyroxine Sodium), 1 TAB PO QAM Pravastatin Sod (Pravastatin Sodium), 10 MG PO DAILY@17 Scheduled PRN Oxycodone/Acetaminophen 5MG/325MG (Percocet 5MG/325MG), 1-2 TABLETS PO Q4H PRN for Pain Description This is a 21 electrode video EEG with a single channel dedicated to limited EKG. The electrodes were placed in accordance with the International 10-20 system. At the start of the recording the patient was in an awake state. Background was well organized and composed of mixed alpha and beta frequencies. There was continuous mild theta slowing over left hemisphere that was maximal over the left temporal- parietal region. There was a symmetric well-formed moderate amplitude 8-9 Hz posterior dominant rhythm that was reactive to eye opening and closure. Hyperventilation was not done. Intermittent photic stimulation at various frequencies produced no abnormalities. Drowsiness was indicated by loss of muscle artifact and slowing of the background rhythm. There was no sleep transients. Throughout the awake state, the patient was noted on video to have frequent myoclonic jerking of the right upper extremity. EEG was of good quality and there was no changes to the normal awake background in association with myoclonic jerking. Myoclonic jerking of the right upper extremity appeared to stop during drowsy stage I sleep. Interpretation This is an abnormal stat outpatient EEG due to continuous mild slowing over the left temporal-parietal area. There was no electrographic seizures or epileptiform discharges. Clinical Correlation There was no changes to the awake EEG background in association with myoclonic twitching of the right upper extremity seen on video. Myoclonic activity appeared to stop during drowsy state. An EEG cannot completely rule out the possibility of simple focal motor seizures if there is a strong clinical suspicion. Considering that the patient was also reported to have twitching of his right foot, this does make it less likely that epileptiform discharges would not be seen on EEG.
== END | disposition home or self-care (01) ==
LOC: C.NEUR 11:43
PROVIDERS: ATTEND Internal Medicine
DX: R56.9 Unspecified convulsions (principal)

== ENCOUNTER → 2016-08-21 | Outpatient (CLI) | payer OTHER ==
[2016-08-24 16:29] LABS: COLLECTION SAMPLE Venous; LEAD BLOOD 3 mcg/dL (<5); VIT E ALPHA-TOCOPHEROL 6.2 mg/L (5.7-19.9); VIT E BETA&GAMMA-TOCOPHEROL 1.2 mg/L (<=4.3); VITAMIN A** TC 921X 54 mcg/dL (38-98); VITAMIN B6** TC 926 2.4 ng/mL (2.1-21.7)
[2016-08-25 22:25] LABS: 18KDIGG BAND NONREACTIVE (NONREACTIVE); 23KDIGG BAND NONREACTIVE (NONREACTIVE); 23KDIGM BAND NONREACTIVE (NONREACTIVE); 28KDIGG BAND NONREACTIVE (NONREACTIVE); 30KDIGG BAND NONREACTIVE (NONREACTIVE); 39KDIGG BAND NONREACTIVE (NONREACTIVE); 39KDIGM BAND NONREACTIVE (NONREACTIVE); 41KDIGG BAND NONREACTIVE (NONREACTIVE); 41KDIGM BAND NONREACTIVE (NONREACTIVE); 45KDIGG BAND NONREACTIVE (NONREACTIVE); 58KDIGG BAND NONREACTIVE (NONREACTIVE); 66KDIGG BAND NONREACTIVE (NONREACTIVE); 93KDIGG BAND NONREACTIVE (NONREACTIVE)
--- NOTE | 2016-08-28 09:50 | CODING QUERY MEDICAL NECESSITY ---
SUPPORTING DIAGNOSIS NEEDED A supporting diagnosis is required for the test/procedure performed on this patient in order for us to be reimbursed by the patient's insurance. Please provide a supporting diagnosis for the following test/procedure listed below next to the test name along with your signature. *If there is no additional diagnosis for this patient that would support the following test/procedure please document that below next to the test/procedure. Test(s)/Procedure(s) that require a supporting diagnosis: DOS 08/21 * Vitamin B12 DIAGNOSIS: * Vitamin B6 DIAGNOSIS: * Iron DIAGNOSIS: Provider Signature: Date: Thank you Luci Wright Health Information Management Once completed, please kindly fax back to [phone] For questions please call [phone]
== END | disposition home or self-care (01) ==
LOC: C.LAB 08:50
PROVIDERS: ATTEND Psychiatry & Neurology Neurology
DX: G25.3 Myoclonus (principal)

== ENCOUNTER → 2016-08-29 | Outpatient (CLI) | payer OTHER | END | disposition home or self-care (01) | LOC: C.PATHSPEC 17:02 | PROVIDERS: ATTEND Urology | DX: C67.9 Malignant neoplasm of bladder, unspecified (principal); N30.20 Other chronic cystitis without hematuria ==

== ENCOUNTER → 2016-10-15 | Outpatient (CLI) | payer OTHER ==
[~2016-10-15] MED LIST changes: +ALFU10TA2 PO; -ALFU10TA30 PO; -CARB-157 PO; +CARB10TA4 PO; -OXYC-57 PO
== END | disposition home or self-care (01) ==
LOC: C.LABBFT 09:24
PROVIDERS: ATTEND Urology
DX: C67.9 Malignant neoplasm of bladder, unspecified (principal); R82.8 Abnormal findings on cytological and histological examination of urine

== ENCOUNTER → 2016-11-15 | Outpatient (CLI) | payer OTHER ==
--- NOTE | 2016-11-15 14:34 | DIAGNOSTIC IMAGING REPORT ---
CT SCAN OF THE ABDOMEN AND PELVIS WITHOUT IV CONTRAST CLINICAL HISTORY: Generalized abdominal pain. Constipation. COMPARISON STUDY: No priors. TECHNIQUE: CT scan of the abdomen and pelvis is performed from the lung bases to the proximal femora. Images are reviewed in the axial, sagittal, and coronal planes. IV contrast was not administered for this examination as per the referring clinician. Note that the examination was performed in suboptimal fashion without IV contrast. Oral contrast was utilized. Automated dose control exposure was utilized. CT DOSE: 393.00 mGy.cm FINDINGS: Lung bases: The heart is top normal in size and without pericardial effusion. The coronary arteries and mitral annulus are densely calcified. Linear atelectasis versus scarring is present at the lung bases. There are scattered calcified granulomas. No airspace consolidation or pleural effusion is seen. Liver: The unenhanced liver is normal in size, contour, and attenuation. There is no intrahepatic biliary ductal dilatation. Gallbladder: Unremarkable. Spleen: Normal in size and attenuation. Pancreas: The unenhanced pancreas is moderately atrophic and grossly unremarkable. Adrenal glands: Unremarkable. Kidneys: The unenhanced kidneys demonstrate mild cortical atrophy and are without hydronephrosis. There are no renal calculi identified. There is no evidence of contour deforming renal mass lesion. Abdominal vasculature: The abdominal aorta is normal in course and caliber noting mild to moderate atherosclerotic calcification. Bowel: A bowel anastomosis is suggested within the ventral upper pelvis. No bowel obstruction is seen. There is moderate fecal retention in the right colon. The appendix is not identified. Peritoneum: There is no intraperitoneal free air or abdominal ascites. Lymphadenopathy: There are numerous mildly enlarged retroperitoneal lymph nodes. These measure up to 1.4 cm in short axis. There are also numerous mildly enlarged mesenteric lymph nodes which measure up to 1.7 cm in short axis. There is no pelvic sidewall or inguinal lymphadenopathy. Pelvic viscera: The prostate gland is diminutive and heterogeneous. Numerous brachytherapy seeds are present within the prostate. The bladder is grossly normal as visualized. Skeletal structures: The skeletal structures are osteopenic. There is moderate lumbosacral spondylosis. No lytic or blastic lesions are seen. IMPRESSION: 1. There is moderate fecal retention, greatest in the right colon. No bowel obstruction is seen. 2. There are numerous mildly enlarged retroperitoneal and mesenteric lymph nodes, greater than expected in both size and number. Although these could be on a reactive basis the appearance is concerning for a lymphoproliferative disorder such as a low-grade leukemia/lymphoma. Correlation patient's clinical and oncological findings will be required. 3. The spleen is normal in size. 4. Additional findings as above. Electronically signed by: Job Galeano M.D. 11/15/2016 2:33 PM Dictated Date/Time: 11/15/2016 2:24 PM
== END | disposition home or self-care (01) ==
LOC: C.CTS 11:29
PROVIDERS: ATTEND Internal Medicine
DX: K59.00 Constipation, unspecified (principal)

== ENCOUNTER 2016-11-19 12:51 | Emergency (ER) | payer OTHER ==
[~2016-11-19] VITALS: Ht 165.1 cm; Wt 75.3 kg
[~2016-11-19 12:51] MED LIST changes: -CARB10TA4 PO; -GLIM1TAB2 PO
[2016-11-19 12:57] VITALS: TEMP 36.7; Ht 165.1 cm; Wt 75.3 kg
--- NOTE | 2016-11-19 13:38 | EMERGENCY ROOM VISIT NOTE ---
History Report prepared by Damian: Minnie Rudolph Under the Supervision of: Dr. Juju Damon D.O. First contact with patient: 13:00 Chief Complaint: OTHER COMPLAINT Stated Complaint: FEELING OF NEUROPATHY R LEG History of Present Illness The patient is a 81 year old male who presents to the Emergency Room with complaints of worsening right leg shaking beginning [employer]. 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 He also has had shaking in his right arm and right leg for many years. He recently had a stroke and states that since the stroke his shaking has worsened. The patient was at the [facility] yesterday for his yearly check-up. He mentioned his leg shaking and was given Capzasin HP cream. He states that his pain and shaking were so bad last night that he was unable to sleep. He used the cream and had almost immediate relief of his symptoms and was able to sleep. This morning the patient states that his shaking is much worse than it has ever been before. He denies any pain and states, "It is a helpless feeling." The patient states that usually if he stands up and walks, the shaking goes away, but that has not been the case today. He has followed up with a neurologist, Dr. Price, who diagnosed the patient with non-rhythmic twitching. She prescribed him a medication for this, and he states that it helped slightly. The patient denies any abdominal pain. Source of History: patient, spouse/significant other Onset: [employer] Position: leg (right) Quality: other (shaking) Timing: worsening Modifying Factors (Relieving): other (Capzasin HP cream) Review of Systems See HPI for pertinent positives & negatives. A total of 10 systems reviewed and were otherwise negative. Past Medical & Surgical Medical Problems: (1) Diabetes (2) HTN (hypertension) Family History Cancer Social History Smoking Status: Never Smoker Alcohol Use: none Drug Use: none Marital Status: Housing Status: lives with significant other Occupation Status: retired Current/Historical Medications Scheduled Alfuzosin Hcl (Uroxatral), 10 MG PO QPM Aspirin (Aspirin EC Low Dose), 81 MG PO DAILY Carbidopa/Levodopa (Sinemet 10MG/100MG), 1 TAB PO TID Glimepiride (Glimepiride), 1 TAB PO DAILY Levothyroxine Sodium (Levothyroxine Sodium), 1 TAB PO QAM Pravastatin Sod (Pravastatin Sodium), 10 MG PO DAILY@17 Allergies Coded Allergies: No Known Allergies (Verified , 03/11/16) Physical Exam Vital Signs Date Time Temp Pulse Resp B/P Pulse Ox O2 Delivery O2 Flow Rate FiO2 11/19/16 14:19 105 18 151/95 96 Room Air 11/19/16 13:17 147/96 11/19/16 12:57 36.7 116 20 96 Room Air Physical Exam General: Involuntary movement of right arm and right leg, right leg is worse than right arm. HEENT: Head - normocephalic and atraumatic Pupils are equal, round, and reactive to light. Extraocular eye muscles are intact, and sclera are anicteric. Nose - moist nasal mucosa without discharge. Mouth - moist buccal mucosa. Oropharynx is nonerythematous and there is no tonsillar exudate or edema noted. Neck: Supple; no JVD, nuchal rigidity, cervical lymphadenopathy. Heart: Regular rate and rhythm. There is a normal S1 and S2 with no murmurs, clicks, or gallops appreciated. Lungs: Clear to auscultation bilaterally with no wheezes, rales, or rhonchi. Abdomen: Soft, completely nontender, nondistended, with good bowel sounds. There are no palpable pulsatile masses or hepatosplenomegaly. There is no guarding, rigidity, or rebound noted. Extremities: No evidence of cyanosis, clubbing, or edema. There are easily palpable peripheral pulses. Skin: warm and dry with good turgor and no rashes. Medical Decision & Procedures ED Course 1300: Past medical records reviewed. The patient was evaluated in room C2B. A complete history and physical exam was performed. I reviewed the neurological consultation from the patient's recent admission. 1420: At this time I spoke with Dr. Price, the patient's neurologist. We discussed the patient's case. She had previously done an EEG on him, which was negative. She recommended starting him on Sinemet TID as needed for symptoms. 1426: I reviewed this traction's with the patient and his . If the twitch persists, he will follow-up with Dr. Peña. Medical Decision The patient is an 81 year old male who presents to the ED with right leg shaking. The patient has a long-standing history of a non-rhythmic twitch in the right arm and right leg. The patient notes that the twitching has become much more frequent and prevents him from sleeping over the past 24-48 hours. [facility] to apply to his foot which did seem to help initially but he was unable to sleep much overnight. The patient denies any changes to his medications. I will start the patient on Sinemet every 8 hours to help with the twitching. He was encouraged to continue taking the clonazepam and amitriptyline at night for sleep. Consults Time Called: 1324 Consulting Physician: Dr. Price Returned Call: 1420 At this time I spoke with Dr. Price, the patient's neurologist. We discussed the patient's case. She had previously done an EEG on him, which was negative. She recommended starting him on Sinemet. Impression Primary Impression: Twitching Scribe Attestation The scribe's documentation has been prepared under my direction and personally reviewed by me in its entirety. I confirm that the note above accurately reflects all work, treatment, procedures, and medical decision making performed by me. Departure Information Dispostion Home / Self-Care Prescriptions Carbidopa/Levodopa (Sinemet 10MG/100MG) Tab 1 TAB PO TID, #30 TAB Prov: Juju Damon D.O. 11/19/16 Referrals Michael Solorio M.D. (PCP) Forms HOME CARE DOCUMENTATION FORM, IMPORTANT VISIT INFORMATION, WORK / SCHOOL INSTRUCTIONS Patient Instructions My [facility] Additional Instructions Take Sinemet - every 8 hours as needed for twitching. Take your usual dose of amytriptyline and clonazepam at night Follow up with Dr. Peña in next 2-3 days if twitches continue to bother you.
[2016-11-19 14:19] VITALS: BP 151/95; PULSE 105; O2SAT 96
[2016-11-19] MEDS ORDERED: CARB10TA4 PO (14:45)
[2016-11-19] MEDS ORDERED: GLIM1TAB2 PO (14:49)
== END 2016-11-19 14:48 | disposition home or self-care (01) ==
LOC: C.EDB 12:52 → C.EDC 14:48
DX: R25.3 Fasciculation (principal); E11.9 Type 2 diabetes mellitus without complications; I10 Essential (primary) hypertension; Z80.9 Family history of malignant neoplasm, unspecified; Z79.82 Long term (current) use of aspirin; Z79.899 Other long term (current) drug therapy

== ENCOUNTER → 2017-01-03 | Outpatient (CLI) | payer OTHER ==
[~2017-01-03] MED LIST changes: -ALFU10TA2 PO; +ALFU10TA30 PO; -AMR2 PO; +CARB-157 PO; +GLIM1TAB2 PO
[2017-01-03 13:12] LABS: ALT/SGPT 28 U/L (12-78); AST/SGOT 18 U/L (15-37); BLOOD UREA NITROGEN 16 mg/dl (7-18); BUN/CREATININE RATIO 11.1 (10-20); CALCIUM 8.8 mg/dl (8.5-10.1); CARBON DIOXIDE 25 mmol/L (21-32); CHLORIDE 104 mmol/L (98-107); CHOLESTEROL 103 mg/dl (0-200); ESTIMATED AVERAGE GLUCOSE 243 mg/dl; GLUCOSE 222 mg/dl (70-99); HA1C FLAG Normal (Normal); POTASSIUM 4.1 mmol/L (3.5-5.1); SODIUM 138 mmol/L (136-145); TRIGLYCERIDES 101 mg/dl (0-150); VERY LOW DENSITY LIPOPROT CALC 20 mg/dl
[2017-01-03 13:22] LABS: ALB/GLOB RATIO 1.3 (0.9-2); ALKALINE PHOSPHATASE 69 U/L (45-117); CHOLESTEROL/HDL RATIO 2.9; HDL CHOLESTEROL 36 mg/dl; LDL CHOLESTEROL CALCULATED 47 mg/dl
== END | disposition home or self-care (01) ==
LOC: C.LABBFT 09:00
PROVIDERS: ATTEND Urology
DX: E11.65 Type 2 diabetes mellitus with hyperglycemia (principal)

== ENCOUNTER → 2017-02-10 | Outpatient (CLI) | payer OTHER ==
[~2017-02-10] MED LIST changes: +OPTIRAY 320 IV PRN
--- NOTE | 2017-02-10 14:58 | DIAGNOSTIC IMAGING REPORT ---
CHEST CT WITH CONTRAST CT DOSE: 952.72 mGycm HISTORY: LEUKOCYTOSIS TECHNIQUE: Multiaxial CT images of the chest were performed following the intravenous administration of contrast. A dose lowering technique was utilized adhering to the principles of ALARA. COMPARISON: Chest 07/31/2016. FINDINGS: The central airways are patent. No pleural effusions. No pneumothorax. There are few scattered punctate calcified granulomas within the lungs. There are 2 punctate metallic densities within the right lung. No focal lung consolidations to suggest pneumonia. No suspicious lytic or blastic osseous lesions. Small splenic subcapsular fluid collection which measures up to 7 mm in thickness. This appears to be stable compared to the 11/15/[address] Therefore, this may represent an old hematoma. The visualized liver is unremarkable. No pericardial effusion. Subcentimeter mediastinal lymph nodes do not meet CT criteria for pathologic involvement. There is no mediastinal or hilar lymphadenopathy. Normal caliber thoracic aorta. The central pulmonary arteries are patent. IMPRESSION: 1. No focal lung consolidations to suggest pneumonia. 2. No mediastinal or hilar lymphadenopathy. 3. Small splenic subcapsular fluid collection which remain stable compared to the prior abdomen and pelvis CT. Therefore, this may represent an old hematoma. Electronically signed by: Tyrell Vora M.D. 02/10/2017 2:56 PM Dictated Date/Time: 02/10/2017 2:49 PM
--- NOTE | 2017-02-10 15:00 | DIAGNOSTIC IMAGING REPORT ---
CT SCAN OF THE ABDOMEN AND PELVIS WITH IV CONTRAST CLINICAL HISTORY: Leukocytosis. COMPARISON STUDY: Abdominal CT dated 11/15/2016. TECHNIQUE: Following the IV administration of 91 cc of Optiray 320, CT scan of the abdomen and pelvis is performed from the lung bases to the proximal femora. Images are reviewed in the axial, sagittal, and coronal planes. IV contrast was administered without complication. Automated dose control exposure was utilized. FINDINGS: Lung bases: The heart is normal in size and there is trace pericardial fluid. The coronary arteries and mitral annulus are densely calcified. Linear atelectasis versus scarring is present at the lung bases. There are scattered calcified granulomas. No airspace consolidation or pleural effusion is seen. Liver: The contrast-enhanced liver is normal in size, contour, and attenuation. There is no intrahepatic biliary ductal dilatation. Gallbladder: Unremarkable. Spleen: Spleen is normal in size and attenuation. A small chronic subcapsular collection is similar to previous. This measures up to 11 mm in thickness. Is much better visualized on today's examination due to the presence of IV contrast. Pancreas: The unenhanced pancreas is moderately atrophic and grossly unremarkable. Adrenal glands: Unremarkable. Kidneys: The contrast-enhanced kidneys are atrophic and without hydronephrosis. The kidneys enhance symmetrically. There are scattered subcentimeter cortical hypodensities. These likely represent cysts but are too small for definitive characterization. Abdominal vasculature: The abdominal aorta is normal in course and caliber noting mild to moderate atherosclerotic calcification. Bowel there is evidence of sigmoid colon resection with colocolonic anastomosis. Moderate colonic fecal retention is observed. There is no bowel obstruction. The appendix is normal as visualized. Peritoneum: There is no intraperitoneal free air or abdominal ascites. Lymphadenopathy: There are numerous mildly enlarged retroperitoneal lymph nodes. These measure up to 1.4 cm in short axis. There are also numerous mildly enlarged mesenteric lymph nodes which measure up to 1.5 cm in short axis. There is no pelvic sidewall or inguinal lymphadenopathy. Pelvic viscera: The prostate gland is diminutive and heterogeneous. Numerous brachytherapy seeds are present within the prostate. The bladder is grossly normal as visualized. Skeletal structures: The skeletal structures are osteopenic. There is moderate lumbosacral spondylosis and scoliosis. No lytic or blastic lesions are seen. IMPRESSION: 1. There are no acute infectious or inflammatory findings in the abdomen or pelvis. 2. There is unchanged appearance of numerous mildly enlarged retroperitoneal and mesenteric lymph nodes when compared to 11/15/2016 the appearance remains concerning for a lymphoproliferative disorder such as a low-grade leukemia/lymphoma. 3. The spleen is normal in size. A small chronic subcapsular hematoma is unchanged from previous. 4. There are postoperative changes from sigmoid colon resection with colocolonic anastomosis. No bowel obstruction is identified. Colonic fecal retention is observed. 5. Additional findings as above. Electronically signed by: Job Galeano M.D. 02/10/2017 2:59 PM Dictated Date/Time: 02/10/2017 2:51 PM
== END | disposition home or self-care (01) ==
LOC: C.CTS 11:43
PROVIDERS: ATTEND Internal Medicine Hematology & Oncology
DX: R59.1 Generalized enlarged lymph nodes (principal)

== ENCOUNTER → 2017-02-18 | Outpatient (CLI) | payer OTHER ==
[~2017-02-18] MED LIST changes: -OPTIRAY 320 IV PRN
[2017-02-18 12:34] LABS: BASO % 0.2 %; BASO ABS # 0.02 K/uL (0-0.2); COMPLETE YES; EOS % 1.2 %; HEMATOCRIT 41.3 % (42-52); IG% 0.4 %; LYMPH % 25.3 %; LYMPH ABS # 3.05 K/uL (1.2-3.4); MEAN CELL VOLUME 80.4 fL (80-100); MEAN CORPUSCULAR HEMOGLOBIN 27.2 pg (25-34); MEAN CORPUSCULAR HGB CONC 33.9 g/dl (32-36); MEAN PLATELET VOLUME 12.4 fL (7.4-10.4); NEUT % 67.9 %; PLATELET COUNT 177 K/uL (130-400); RED BLOOD COUNT 5.14 M/uL (4.7-6.1); WHITE BLOOD COUNT 12.05 K/uL (4.8-10.8)
[2017-02-18 12:45] LABS: ALT/SGPT 26 U/L (12-78); BLOOD UREA NITROGEN 15 mg/dl (7-18); BUN/CREATININE RATIO 11.3 (10-20); CALCIUM 8.5 mg/dl (8.5-10.1); CARBON DIOXIDE 25 mmol/L (21-32); CHLORIDE 107 mmol/L (98-107); GLUCOSE 216 mg/dl (70-99); POTASSIUM 4.2 mmol/L (3.5-5.1); SODIUM 139 mmol/L (136-145)
[2017-02-18 12:49] LABS: ALB/GLOB RATIO 1.2 (0.9-2); ALKALINE PHOSPHATASE 71 U/L (45-117); AST/SGOT 19 U/L (15-37); TOTAL IRON BINDING CAPACITY 408 mcg/dl (250-450)
== END | disposition home or self-care (01) ==
LOC: C.LABBFT 09:30
PROVIDERS: ATTEND Internal Medicine Hematology & Oncology
DX: D72.829 Elevated white blood cell count, unspecified (principal)

== ENCOUNTER → 2017-03-21 | Outpatient (CLI) | payer OTHER ==
[2017-03-21 12:41] LABS: GLUCOSE,FASTING 117 mg/dl (70-99)
[2017-03-21 12:46] LABS: ESTIMATED AVERAGE GLUCOSE 192 mg/dl; HA1C FLAG Normal (Normal)
[2017-03-21 12:48] LABS: PROSTATE SPECIFIC ANTIGEN < 0.010 ng/ml (0.000-4.000)
--- NOTE | 2017-04-03 10:09 | CODING QUERY MEDICAL NECESSITY ---
SUPPORTING DIAGNOSIS NEEDED Dr. Harrison, A supporting diagnosis is required for the test/procedure performed on this patient in order for us to be reimbursed by the patient's insurance. Please provide a supporting diagnosis for the following test/procedure listed below next to the test name along with your signature. *If there is no additional diagnosis for this patient that would support the following test/procedure please document that below next to the test/procedure. Test(s)/Procedure(s) that require a supporting diagnosis: * [id number] PSA DIAGNOSIS: DATE OF SERVICE: 03/21/17 Provider Signature: Date: Thank you Dm Bill [facility] Information Management Once completed, please kindly fax back to [phone] For questions please call [phone]
== END | disposition home or self-care (01) ==
LOC: C.LABBFT 09:13
PROVIDERS: ATTEND Internal Medicine
DX: C67.9 Malignant neoplasm of bladder, unspecified (principal); E11.65 Type 2 diabetes mellitus with hyperglycemia; C61 Malignant neoplasm of prostate

== ENCOUNTER → 2017-03-24 | Outpatient (CLI) | payer OTHER ==
[2017-03-24 12:35] LABS: BLOOD UREA NITROGEN 17 mg/dl (7-18); BUN/CREATININE RATIO 12.9 (10-20); CALCIUM 8.8 mg/dl (8.5-10.1); CARBON DIOXIDE 25 mmol/L (21-32); CHLORIDE 106 mmol/L (98-107); GLUCOSE 174 mg/dl (70-99); POTASSIUM 4.7 mmol/L (3.5-5.1); SODIUM 138 mmol/L (136-145)
== END | disposition home or self-care (01) ==
LOC: C.LABBFT 10:11
PROVIDERS: ATTEND Internal Medicine
DX: E11.65 Type 2 diabetes mellitus with hyperglycemia (principal)

== ENCOUNTER → 2017-06-09 | Outpatient (CLI) | payer OTHER ==
[~2017-06-09] MED LIST changes: +ALFU10TA2 PO; -ALFU10TA30 PO; +ASPCH81X PO; -CARB-157 PO; +GLIM2TAB2 PO; +METF1TAB53 PO; +PSYL48.59 PO
[2017-06-09 12:15] LABS: BASO % 0.1 %; BASO ABS # 0.01 K/uL (0-0.2); COMPLETE YES; EOS % 0.7 %; HEMATOCRIT 42.4 % (42-52); IG% 0.4 %; LYMPH % 20.5 %; MEAN CELL VOLUME 86.4 fL (80-100); MEAN CORPUSCULAR HEMOGLOBIN 28.7 pg (25-34); MEAN CORPUSCULAR HGB CONC 33.3 g/dl (32-36); MEAN PLATELET VOLUME 11.1 fL (7.4-10.4); MONO % 4.1 %; NEUT % 74.2 %; PLATELET COUNT 177 K/uL (130-400); RED BLOOD COUNT 4.91 M/uL (4.7-6.1); WHITE BLOOD COUNT 11.21 K/uL (4.8-10.8)
[2017-06-09 17:54] LABS: BLOOD UREA NITROGEN 17 mg/dl (7-18); BUN/CREATININE RATIO 10.9 (10-20); CALCIUM 8.3 mg/dl (8.5-10.1); CARBON DIOXIDE 27 mmol/L (21-32); CHLORIDE 105 mmol/L (98-107); CREATININE 1.58 mg/dl (0.60-1.40); GLUCOSE 284 mg/dl (70-99); POTASSIUM 4.3 mmol/L (3.5-5.1); SODIUM 137 mmol/L (136-145)
[2017-06-09 17:57] LABS: ALB/GLOB RATIO 1.3 (0.9-2); ALKALINE PHOSPHATASE 56 U/L (45-117); ALT/SGPT 15 U/L (12-78); AST/SGOT 11 U/L (15-37); FERRITIN 12.7 ng/ml (8.0-388.0); TOTAL IRON BINDING CAPACITY 382 mcg/dl (250-450)
== END | disposition home or self-care (01) ==
LOC: C.LABBFT 10:31
PROVIDERS: ATTEND Internal Medicine Hematology & Oncology
DX: D72.829 Elevated white blood cell count, unspecified (principal)

== ENCOUNTER → 2017-07-14 | Day surgery (SDC) | payer OTHER ==
[2017-06-10 10:38] VITALS: Ht 165.1 cm; Wt 75.0 kg
[~2017-07-14] VITALS: Ht 165.1 cm; Wt 75.0 kg
[~2017-07-14] MED LIST changes: -ASPEC81 PO; -GLIM1TAB2 PO; +LIDOCAINE HCL 2% 2 ML VIAL (20MG/ML) ONE; +PROPOFOL IV EMULSION 10 MG/ML 20 ML VIAL IV ONE; +SODIUM CHLORIDE 0.9% 500ML 500 ML IV ONE
--- NOTE | 2017-07-14 08:48 | Endo History and Physical ---
History & Physical Date of Service: Jul 14, 2017. Chief Complaint: History of colon cancer Referring Physician: Dr. Michael Solorio History of Present Illness 82 yo CM who presents for colonoscopy secondary to history of colon cancer. Past Medical History Diabetes, Arthritis, Male Genitourinary Prob., Gastrointestinal Disorder, Reflux , Cancer, Hypertension, Other Past Surgical History Hx Cardiac Surgery: No Hx Internal Defibrillator: No Hx Pacemaker: No Hx Abdominal Surgery: No Hx Post-Op Nausea and Vomiting: Yes (PONV WITH BRACHYTHERAPY AND RCR) Hx Cancer Surgery: Yes (COLON RESECTION, BRACHYTHERAPY, TURBT) Hx Thoracic Surgery: No Hx Orthopedic: Yes (LEFT/RT RCR) Hx Urinary Tract Surgery: No Family History None Social History Smoking Status: Former Smoker Hx Substance Use: No Hx Alcohol Use: No Allergies Coded Allergies: No Known Allergies (Verified , 06/10/17) Current Medications Reported Home Medications Medications Dose Route/Sig Max Daily Dose Days Date Category Metamucil (Psyllium) 48.57 % Pow 1 Dose PO DAILY PRN 06/10/17 Reported Pravastatin Sodium (Pravastatin Sod) 10 Mg Tab 1 Tab PO QPM 06/10/17 Reported Glucophage Ext Rel (Metformin Hcl) 1,000 Mg Tab 1,000 Mg PO BID 06/10/17 Reported Levothyroxine Sodium 50 Mcg Tab 1 Tab PO QAM 06/10/17 Reported Glimepiride 2 Mg Tab 1 Tab PO BID 06/10/17 Reported Aspirin Chewable (Aspirin) 81 Mg Chew 81 Mg PO QAM 06/10/17 Reported Uroxatral (Alfuzosin HCl) 10 Mg Tab 10 Mg PO QPM 03/06/16 Reported Vital Signs Weight (Kilograms): 75 Height (Feet): 5 Height (Inches): 5 Date Time Temp Pulse Resp B/P (MAP) Pulse Ox O2 Delivery O2 Flow Rate FiO2 07/14/17 08:36 36.5 89 20 141/78 (99) 97 Room Air Physical Exam General Appearance: WD/WN, no apparent distress Respiratory/Chest: Auscultation: breath sounds normal Cardiovascular: Heart Auscultation: RRR Abdomen: Bowel Sounds: normal Inspection & Palpation: soft, non-distended, no tenderness, guarding & rebound Assessment and Plan Assessment: 82 yo CM who presents for colonoscopy secondary to history of colon cancer. Plan: Proceed with colonoscopy.
--- NOTE | 2017-07-14 09:42 | Discharge Instructions ---
Endoscopy Patient Instructions Date / Procedure(s) Performed Jul 14, 2017. Colonoscopy Allergy Information Coded Allergies: No Known Allergies (Verified , 07/14/17) Discharge Date / Findings Jul 14, 2017. Internal hemorrhoids Sigmoid colon Anastomosis Medication Instructions Stopped Medication(s): Patient was told to stop his metformin. Last had it 2 days ago. OK to resume all medications today as prescribed Reported Home Medications Medications Dose Route/Sig Max Daily Dose Days Date Category Metamucil (Psyllium) 48.57 % Pow 1 Dose PO DAILY PRN 06/10/17 Reported Pravastatin Sodium (Pravastatin Sod) 10 Mg Tab 1 Tab PO QPM 06/10/17 Reported Glucophage Ext Rel (Metformin Hcl) 1,000 Mg Tab 1,000 Mg PO BID 06/10/17 Reported Levothyroxine Sodium 50 Mcg Tab 1 Tab PO QAM 06/10/17 Reported Glimepiride 2 Mg Tab 1 Tab PO BID 06/10/17 Reported Aspirin Chewable (Aspirin) 81 Mg Chew 81 Mg PO QAM 06/10/17 Reported Uroxatral (Alfuzosin HCl) 10 Mg Tab 10 Mg PO QPM 03/06/16 Reported Provider Instructions Activity Restrictions - No exercising or heavy lifting for 24 hours. - Do not drink alcohol the day of the procedure. - Do not drive a car or operate machinery until the day after the procedure. - Do not make any important decisions or sign important papers in 24 hours after the procedure. Following Day: - Return to full activity which may include returning to work/school. Diet Start your diet with liquids and light foods (jello, soup, juice, toast). Then eat your usual diet if not nauseated. Treatment For Common After Affects For mild abdominal pain, bloating, or excessive gas: - Rest - Eat lightly - Lie on right side Follow-Up Information Follow-up with Dr. Michael Solorio as scheduled Anesthesia Information What You Should Know You have had a procedure that required some medicine to reduce anxiety and discomfort. This treatment is called moderate sedation. After receiving the treatment, you may be sleepy, but you will be able to breathe on your own. The effects of the treatment may last for several hours. Follow these instructions along with Activity/Diet recommendations noted above: * Do NOT do anything where dizziness or clumsiness would be dangerous. * Rest quietly at home today, then you can be up and about tomorrow. * Have a responsible person stay with you the rest of today. * You may have had an I.V. today. If so, you may take the dressing off later today. Recommendations Call your doctor if: * Trouble breathing * Continuous vomiting for more than 24 hours * Temperature above 101 degrees * Severe abdominal pain or bloating * Pain not relieved by pain medicine ordered * There is increased drainage or redness from any incision * A large amount of rectal bleeding greater than 2-3 tablespoons. (If you had a polyp/s removed or have hemorrhoids, a small amount of blood - from the rectum is to be expected.) * You have any unanswered questions or concerns. IN THE EVENT OF A SERIOUS EMERGENCY, GO TO THE NEAREST EMERGENCY ROOM Your discharge instructions were prepared by provider Iftikhar Murphy. Patient Instructions Signature Page Dm Mares Patient (or Guardian) Signature/Date: I have read and understand the instructions given to me by my caregivers. Caregiver/RN/Doctor Signature/Date: The above-named patient and/or guardian has received patient instructions on this date. + Original Patient Signature Page (only) stays with chart. Please make copy for patient.
--- NOTE | 2017-07-14 09:47 | Anesthesiology Progress Note ---
Anesthesia Post Op Note Date & Time Jul 14, 2017 at 09:46 Vital Signs Pain Intensity: 0 Vital Signs Past 12 Hours Date Time Temp Pulse Resp B/P (MAP) Pulse Ox O2 Delivery O2 Flow Rate FiO2 07/14/17 09:39 78 20 127/77 (94) 96 Nasal Cannula 3 07/14/17 08:36 36.5 89 20 141/78 (99) 97 Room Air Notes Mental Status: alert / awake / arousable, participated in evaluation Pt Amnestic to Procedure: Yes Nausea / Vomiting: adequately controlled Pain: adequately controlled Airway Patency, RR, SpO2: stable & adequate BP & HR: stable & adequate Hydration State: stable & adequate Anesthetic Complications: no major complications apparent
--- NOTE | 2017-07-14 09:56 | GI REPORT ---
Procedure Date: 07/14/2017 8:54 AM Procedure: Colonoscopy Indications: High risk colon cancer surveillance: Personal history of colon cancer Medicines: Monitored Anesthesia Care Complications: No immediate complications. Estimated Blood Loss: Estimated blood loss: none. Procedure: Pre-Anesthesia Assessment: - Prior to the procedure, a History and Physical was performed, and patient medications and allergies were reviewed. The patient's tolerance of previous anesthesia was also reviewed. The risks and benefits of the procedure and the sedation options and risks were discussed with the patient. All questions were answered, and informed consent was obtained. Prior Anticoagulants: The patient has taken aspirin, last dose was day of procedure. ASA Grade Assessment: III - A patient with severe systemic disease. After reviewing the risks and benefits, the patient was deemed in satisfactory condition to undergo the procedure. After I obtained informed consent, the scope was passed under direct vision. Throughout the procedure, the patient's blood pressure, pulse, and oxygen saturations were monitored continuously. The scope was introduced through the anus and advanced to the cecum, identified by appendiceal orifice and ileocecal valve. The colonoscopy was performed without difficulty. The patient tolerated the procedure well. The quality of the bowel preparation was good. The ileocecal valve, appendiceal orifice, and rectum were photographed. Findings: The perianal and digital rectal examinations were normal. There was evidence of a prior end-to-side colo-colonic anastomosis in the sigmoid colon. This was patent and was characterized by healthy appearing mucosa. The anastomosis was traversed. Copious quantities of liquid stool was found in the entire colon, making visualization difficult. Lavage of the area was performed using a large amount of normal saline, resulting in clearance with fair visualization. Non-bleeding internal hemorrhoids were found during retroflexion. The hemorrhoids were small. Impression: - Patent end-to-side colo-colonic anastomosis, characterized by healthy appearing mucosa. - Stool in the entire examined colon. - Non-bleeding internal hemorrhoids. - No specimens collected. Recommendation: - Resume previous diet. - Continue present medications. - No repeat colonoscopy due to age and the absence of advanced adenomas. - Return to primary care physician as previously scheduled. Iftikhar Murphy DO 07/14/2017 9:55:51 AM This report has been signed electronically. Note Initiated On: 07/14/2017 8:54 AM I attest to the content of the Intraoperative Record and orders documented therein, exceptions below
[2017-07-14 10:09] VITALS: BP 148/85; PULSE 77; O2SAT 98
== END | disposition home or self-care (01) ==
LOC: C.GI 07:57
PROVIDERS: ATTEND Internal Medicine
DX: Z12.11 Encounter for screening for malignant neoplasm of colon (principal); K64.8 Other hemorrhoids; Z85.038 Personal history of other malignant neoplasm of large intestine; E11.22 Type 2 diabetes mellitus with diabetic chronic kidney disease; N18.9 Chronic kidney disease, unspecified; I12.9 Hypertensive chronic kidney disease with stage 1 through stage 4 chronic kidney disease, or unspecified chronic kidney disease; M19.90 Unspecified osteoarthritis, unspecified site; Z86.73 Personal history of transient ischemic attack (TIA), and cerebral infarction without residual deficits; Z98.890 Other specified postprocedural states; Z90.89 Acquired absence of other organs; Z87.891 Personal history of nicotine dependence; Z79.82 Long term (current) use of aspirin

== ENCOUNTER → 2017-07-30 | Outpatient (CLI) | payer OTHER ==
[~2017-07-30] MED LIST changes: -LIDOCAINE HCL 2% 2 ML VIAL (20MG/ML) ONE; -PROPOFOL IV EMULSION 10 MG/ML 20 ML VIAL IV ONE; -SODIUM CHLORIDE 0.9% 500ML 500 ML IV ONE
[2017-07-30 13:06] LABS: HEMATOCRIT 44.7 % (42-52); MEAN CELL VOLUME 86.3 fL (80-100); MEAN CORPUSCULAR HGB CONC 33.6 g/dl (32-36); MEAN PLATELET VOLUME 12.1 fL (7.4-10.4); PLATELET COUNT 196 K/uL (130-400); RED CELL DISTRIBUTION WIDTH CV 13.5 % (11.5-14.5); RED CELL DISTRIBUTION WIDTH SD 42.2 fL (36.4-46.3); WHITE BLOOD COUNT 12.99 K/uL (4.8-10.8)
[2017-07-30 13:23] LABS: ALT/SGPT 18 U/L (12-78); BLOOD UREA NITROGEN 17 mg/dl (7-18); CALCIUM 8.7 mg/dl (8.5-10.1); CARBON DIOXIDE 23 mmol/L (21-32); CHOLESTEROL 93 mg/dl (0-200); CREATININE 1.38 mg/dl (0.60-1.40); GLUCOSE 168 mg/dl (70-99); POTASSIUM 4.6 mmol/L (3.5-5.1); SODIUM 137 mmol/L (136-145)
[2017-07-30 13:26] LABS: ALKALINE PHOSPHATASE 67 U/L (45-117); AST/SGOT 14 U/L (15-37); LDL CHOLESTEROL CALCULATED 30 mg/dl
[2017-07-30 13:29] LABS: HEMOGLOBIN A1C 6.8 % (4.5-5.6)
== END | disposition home or self-care (01) ==
LOC: C.LABBFT 09:28
PROVIDERS: ATTEND Internal Medicine
DX: E11.65 Type 2 diabetes mellitus with hyperglycemia (principal)

== ENCOUNTER → 2018-01-16 | Outpatient (CLI) | payer OTHER ==
[~2018-01-16] MED LIST changes: +LISI10TA PO; +ONGLYZA PO; -PSYL48.59 PO
== END | disposition home or self-care (01) ==
LOC: C.LABBFT 10:06
PROVIDERS: ATTEND Nurse Practitioner Adult Health
DX: R39.9 Unspecified symptoms and signs involving the genitourinary system (principal)

== ENCOUNTER 2021-08-13 03:26 | Inpatient (IN) ==
--- NOTE | 2021-08-13 03:50 | Emergency Department Note ---
Impression & Plan Acute renal failure, Hypoglycemia associated with type 2 diabetes mellitus Admit to the [facility]. ED Provider Note NAME: BATSHEVA WATT AGE: 86 SEX: M ARRIVES VIA: Ambulance INFORMANT: Patient ED PROVIDER(S): Juju Damon DO CHIEF COMPLAINT: hypoglycemia PLAN: Disposition: Admit to the [facility] Condition: Guarded MEDICAL DECISION MAKING: This is an 86-year-old male patient who presents to the emergency department from the [facility] with a low blood sugar. Upon presentation to the emergency department, the patient's blood sugar had come back up after receiving IV dextrose by EMS. Patient had persistent nausea and received IV Zofran. The patient's creatinine was significantly elevated compared to recent blood work. It appears that he is suffering an acute kidney injury. He began to receive IV fluids and his blood sugar was monitored closely. I discussed the case with the [facility] and they will evaluate for further management. Triage Nursing notes reviewed and agree with them. Prior medical records reviewed Vital Signs: reviewed and remarkable for hypertension Differential diagnosis: Insulin overdose, electrolyte abnormality, acute renal failure cardiac ischemia, ER treatment provided: IV normal saline Diagnostics interpreted by me: ECG: Normal sinus rhythm at a rate of 64 with a first-degree AV block. There is no ST segment elevation or signs of ischemia. There is no ectopy. Cardiac Monitoring: Normal sinus rhythm at 72 Laboratory studies: See below Imaging studies: As per my interpretation Chest x-ray: No acute pulmonary infiltrates or consolidations HPI: 86/M arrives for evaluation of hypoglycemia. Staff at the [facility] were rounding on the patient and found him to be in bed unresponsive. His blood sugar was in the 30s. EMS was called. Upon their arrival, they found his blood sugar to be 42 and administered oral glucose. When ALS arrived, they initiated an IV and administer D10. The patient became more responsive. He did complain of nausea and had an episode of vomiting for EMS and was given 4 mg of IV Zofran. Upon arrival in the emergency department, his BSG was 156. Evaluation of the patient, he was diaphoretic and complained of nausea. ROS: See above HPI for pertinent positives & negatives. A total of 10 systems reviewed and were otherwise negative. PAST MEDICAL HISTORY:See Below PAST SURGICAL HISTORY:See Below FAMILY HISTORY:See Below SOCIAL HISTORY:See Below HOME MEDICATIONS:See list ALLERGIES:See list VITALS:See Below PHYSICAL EXAMINATION: HEENT: Head - normocephalic and atraumatic. Pupils are equal, round, and reactive to light. Extraocular eye muscles are intact, and sclera are anicteric. Nose - moist nasal mucosa without discharge. Mouth - moist buccal mucosa. Oropharynx is nonerythematous and there is no tonsillar exudate or edema noted. Neck: Supple; no JVD, nuchal rigidity, cervical lymphadenopathy, or auscultated bruits. Heart: Regular rate and rhythm. There is a normal S1 and S2 with no murmurs, clicks, or gallops appreciated. Lungs: Clear to auscultation bilaterally with no wheezes, rales, or rhonchi. Abdomen: Soft, completely nontender, nondistended, with good bowel sounds. There are no palpable pulsatile masses or hepatosplenomegaly. There is no guarding, rigidity, or rebound noted. Extremities: No evidence of cyanosis, clubbing, or edema. There are easily palpable peripheral pulses. Skin: Cool, pale and diaphoretic. Good turgor and no rashes. ED COURSE: Times/Reassessments: 330 the patient was evaluated in room A12. A complete history and physical was performed. Previous electronic medical records were reviewed. An order was placed for continuous cardiac monitoring. The patient was in a normal sinus rhythm at a rate of 72. A twelve-lead EKG was obtained. The patient's blood sugar was monitored closely. The patient was started on IV normal saline. I discussed the case with the [facility] hospitalist and they will evaluate for further management. Juju Damon DO Past Med/Surg History Medical History Anxiety and depression Chronic kidney disease Stage 3 Dementia Diabetes mellitus, type 2 NIDDM GERD (gastroesophageal reflux disease) Occasional Hematuria Occasional History of bladder cancer S/P TURBT History of colon cancer s/p bowel resection/chemo (15+ years ago) History of prostate cancer s/p brachytherapy HTN (hypertension) Hypothyroidism Internal hemorrhoids Stroke 2017, residual short term memory loss Surgical History History of bladder surgery TURBT (03/11/16): LMA#5 at [facility] TURBT (01/30/21): LMA#5 igel at [facility] > "Per anesthesia post-op progress note (01/30/21): The patient is awake and comfortable in PACU although he would like to use the commode. He was hypertensive preoperatively with BP 170/90. He did not take his amlodipine today. In the PACU his BP was 170s/100s. He was treated with labetalol and is now 160s/80s. His other vital signs are stable. The patient was instructed to take his amlodipine when he goes home." History of bowel resection History of brachytherapy History of cataract extraction with lens replacement R/L History of colonoscopy History of placement of ear tubes History of prostate surgery History of tonsillectomy History of tooth extraction Hx of transurethral resection of prostate Nausea and vomiting after administration of anesthetic agent S/P arthroscopy of right shoulder S/P tube myringotomy Family History Sister Breast cancer Brother Alcoholism Cirrhosis Family/Other Prostate cancer Diabetes Colorectal cancer Stroke Mother Liver cancer Father Lung cancer Other Hypertension No family history of adverse response to anesthesia Social History Smoking Status: Never smoker Tobacco Type: Cigarettes Age Started Using Tobacco: 11; Age Quit Using Tobacco: 31; packs per day: 4; Years Smoked: 20; Number of Years Since Quit: 53; Second Hand Exposure: No; Hx Alcohol Use: No Hx Substance Use: No Preferred Language: Syrian Communication Ability: Effective Visual Impairment: No Limitations Compounding Pharmacy Technician Required: No Beliefs That Will Affect Care: None marital status: / Current Living Situation: Alone Current Living Situation Comment: Daughter checks in current occupational status: retired 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 Feels Safe at Home: Yes Seatbelt Use: always Assistive Devices: None Allergies Allergies Allergy/AdvReac Type Severity Reaction Status Date / Time saxagliptin AdvReac Unknown Unknown Verified 07/10/21 16:10 Home Meds Home Medications Medication Instructions Recorded Confirmed levothyroxine 50 mcg tablet 50 mcg PO QAM 09/14/18 08/13/21 aspirin 81 mg tablet,delayed 81 mg PO QAM 06/12/20 08/13/21 release folic acid 1 mg tablet 1 mg PO QAM 06/12/20 08/13/21 glipizide 10 mg tablet 20 mg PO BID tab 06/19/20 08/13/21 amlodipine 10 mg tablet 10 mg PO QAM 06/23/20 08/13/21 pravastatin 10 mg tablet 10 mg PO QPM 06/23/20 08/13/21 alfuzosin 10 mg tablet,extended 10 mg PO QPM 01/18/21 08/13/21 release 24 hr docusate sodium 100 mg capsule 100 mg PO DAILY PRN 01/18/21 08/13/21 (Colace) iron,carbonyl 65 mg-vitamin C 125 1 tab PO QPM 01/18/21 08/13/21 mg tablet,delayed release (Vitron-C) polyethylene glycol 400 0.25 % eye 1 drp OPHTHALMIC (EYE) UD PRN 01/18/21 08/13/21 drops terbinafine HCl 1 % topical cream 1 applic TOPICAL BID PRN 01/18/21 08/13/21 sulfamethoxazole 800 1 tab PO BID 08/08/21 08/08/21 mg-trimethoprim 160 mg tablet (Bactrim DS) Previous Rx's Medication Instructions Recorded metformin 1,000 mg tablet 1,000 mg PO BID #180 tab 02/07/20 hydrocodone 5 mg-acetaminophen 325 1 tab PO Q6H PRN #15 tab 06/07/21 mg tablet escitalopram oxalate 10 mg tablet 5 mg PO DAILY #30 tab 06/25/21 nystatin 100,000 unit/gram topical 1 applic TOPICAL BID 14 Days #30 g 07/10/21 cream lorazepam 1 mg tablet 1 mg PO DAILY PRN #30 tab 07/16/21 Results & Data (ED) Laboratory Data Result diagrams: 08/14/21 05:39 08/14/21 14:49 Lab Results 08/13/21 08/13/21 08/13/21 Range/Units 03:35 03:35 03:35 WBC 22.97 H (4.8-10.8) K/uL RBC 4.64 L (4.7-6.1) M/uL Hgb 13.4 L (14.0-18.0) g/dL Hct 39.9 L (42-52) % MCV 86.0 (80-100) fL MCH 28.9 (25-34) pg MCHC 33.6 (32-36) g/dL RDW Std Deviation 41.0 (36.4-46.3) fL RDW Coeff of Tracey 13.0 (11.5-14.5) % Plt Count 280 (130-400) K/uL MPV 9.9 (7.4-10.4) fL Immature Gran % (Auto) 0.5 % Neut % (Auto) 92.2 % Lymph % (Auto) 3.6 % Grady % (Auto) 3.7 % Eos % (Auto) 0.0 % Baso % (Auto) 0.0 % Neut # (Auto) 21.20 H (1.4-6.5) K/uL Lymph # (Auto) 0.82 L (1.2-3.4) K/uL Grady # (Auto) 0.84 H (0.11-0.59) K/uL Eos # (Auto) 0.00 (0-0.5) K/uL Baso # (Auto) 0.00 (0-0.2) K/uL Immature Gran # (Auto) 0.11 H (0.00-0.02) K/uL Sodium 131 L (136-145) mmol/L Potassium 4.9 (3.5-5.1) mmol/L Chloride 101 (98-107) mmol/L Carbon Dioxide 18 L (21-32) mmol/L Anion Gap 12 H (3-11) BUN 47 H (6-23) mg/dl Creatinine 3.77 H (0.6-1.4) mg/dl Est Cr Clr Drug Dosing 12.9 ml/min Est GFR ( Amer) 15.7 ml/min Est GFR (Non-Af Amer) 13.5 ml/min BUN/Creatinine Ratio 12.5 (10-20) Glucose 141 H (70-99(Fasting)) mg/dl Calcium 8.4 L (8.5-10.1) mg/dl Phosphorus (2.5-4.9) mg/dl Magnesium (1.7-2.4) mg/dl Total Bilirubin 0.9 (0.2-1.0) mg/dl AST 13 (13-39) U/L ALT 12 (7-52) U/L Alkaline Phosphatase 50 (34-104) U/L Total Creatine Kinase (30-223) U/L Troponin I < 0.03 (0-0.04) ng/ml Total Protein 6.1 (6.0-8.3) gm/dl Albumin 3.6 (3.4-5.0) gm/dl Globulin 2.5 (2.5-4.0) gm/dl Albumin/Globulin Ratio 1.4 (0.9-2) TSH 2.698 (0.300-4.500) uIu/ml Urine Color Urine Appearance (Clear) Urine pH (4.5-7.5) Ur Specific [place] (1.000-1.030) Urine Protein (Negative) Urine Glucose (UA) (Negative) Urine Ketones (Negative) Urine Blood (Negative) Urine Nitrite (Negative) Urine Bilirubin (Negative) Urine Urobilinogen (Negative) Ur Leukocyte Esterase (Negative) Urine WBC (Auto) (0-5) /hpf Urine RBC (Auto) (0-4) /hpf U Hyaline Cast (Auto) (0-5) /lpf U Epithel Cells (Auto) (0-5) /lpf Urine Bacteria (Auto) (Negative) Ur Random Creatinine mg/dl Ur Random Sodium mmol/L SARS-CoV-2, RNA, NAAT (NEGATIVE) 08/13/21 08/13/21 08/13/21 Range/Units 03:45 05:24 05:24 WBC (4.8-10.8) K/uL RBC (4.7-6.1) M/uL Hgb (14.0-18.0) g/dL Hct (42-52) % MCV (80-100) fL MCH (25-34) pg MCHC (32-36) g/dL RDW Std Deviation (36.4-46.3) fL RDW Coeff of Tracey (11.5-14.5) % Plt Count (130-400) K/uL MPV (7.4-10.4) fL Immature Gran % (Auto) % Neut % (Auto) % Lymph % (Auto) % Grady % (Auto) % Eos % (Auto) % Baso % (Auto) % Neut # (Auto) (1.4-6.5) K/uL Lymph # (Auto) (1.2-3.4) K/uL Grady # (Auto) (0.11-0.59) K/uL Eos # (Auto) (0-0.5) K/uL Baso # (Auto) (0-0.2) K/uL Immature Gran # (Auto) (0.00-0.02) K/uL Sodium (136-145) mmol/L Potassium (3.5-5.1) mmol/L Chloride (98-107) mmol/L Carbon Dioxide (21-32) mmol/L Anion Gap (3-11) BUN (6-23) mg/dl Creatinine (0.6-1.4) mg/dl Est Cr Clr Drug Dosing ml/min Est GFR ( Amer) ml/min Est GFR (Non-Af Amer) ml/min BUN/Creatinine Ratio (10-20) Glucose (70-99(Fasting)) mg/dl Calcium (8.5-10.1) mg/dl Phosphorus 3.6 (2.5-4.9) mg/dl Magnesium 2.2 (1.7-2.4) mg/dl Total Bilirubin (0.2-1.0) mg/dl AST (13-39) U/L ALT (7-52) U/L Alkaline Phosphatase (34-104) U/L Total Creatine Kinase 42 (30-223) U/L Troponin I (0-0.04) ng/ml Total Protein (6.0-8.3) gm/dl Albumin (3.4-5.0) gm/dl Globulin (2.5-4.0) gm/dl Albumin/Globulin Ratio (0.9-2) TSH (0.300-4.500) uIu/ml Urine Color Yellow Urine Appearance Clear (Clear) Urine pH 7.5 (4.5-7.5) Ur Specific [place] 1.009 (1.000-1.030) Urine Protein 2+ H (Negative) Urine Glucose (UA) Negative (Negative) Urine Ketones Negative (Negative) Urine Blood 1+ H (Negative) Urine Nitrite Negative (Negative) Urine Bilirubin Negative (Negative) Urine Urobilinogen Negative (Negative) Ur Leukocyte Esterase 1+ H (Negative) Urine WBC (Auto) >30 H (0-5) /hpf Urine RBC (Auto) 5-10 H (0-4) /hpf U Hyaline Cast (Auto) 1-5 (0-5) /lpf U Epithel Cells (Auto) 5-10 H (0-5) /lpf Urine Bacteria (Auto) Negative (Negative) Ur Random Creatinine mg/dl Ur Random Sodium mmol/L SARS-CoV-2, RNA, NAAT NEGATIVE (NEGATIVE) 08/13/21 Range/Units 05:24 WBC (4.8-10.8) K/uL RBC (4.7-6.1) M/uL Hgb (14.0-18.0) g/dL Hct (42-52) % MCV (80-100) fL MCH (25-34) pg MCHC (32-36) g/dL RDW Std Deviation (36.4-46.3) fL RDW Coeff of Tracey (11.5-14.5) % Plt Count (130-400) K/uL MPV (7.4-10.4) fL Immature Gran % (Auto) % Neut % (Auto) % Lymph % (Auto) % Grady % (Auto) % Eos % (Auto) % Baso % (Auto) % Neut # (Auto) (1.4-6.5) K/uL Lymph # (Auto) (1.2-3.4) K/uL Grady # (Auto) (0.11-0.59) K/uL Eos # (Auto) (0-0.5) K/uL Baso # (Auto) (0-0.2) K/uL Immature Gran # (Auto) (0.00-0.02) K/uL Sodium (136-145) mmol/L Potassium (3.5-5.1) mmol/L Chloride (98-107) mmol/L Carbon Dioxide (21-32) mmol/L Anion Gap (3-11) BUN (6-23) mg/dl Creatinine (0.6-1.4) mg/dl Est Cr Clr Drug Dosing ml/min Est GFR ( Amer) ml/min Est GFR (Non-Af Amer) ml/min BUN/Creatinine Ratio (10-20) Glucose (70-99(Fasting)) mg/dl Calcium (8.5-10.1) mg/dl Phosphorus (2.5-4.9) mg/dl Magnesium (1.7-2.4) mg/dl Total Bilirubin (0.2-1.0) mg/dl AST (13-39) U/L ALT (7-52) U/L Alkaline Phosphatase (34-104) U/L Total Creatine Kinase (30-223) U/L Troponin I (0-0.04) ng/ml Total Protein (6.0-8.3) gm/dl Albumin (3.4-5.0) gm/dl Globulin (2.5-4.0) gm/dl Albumin/Globulin Ratio (0.9-2) TSH (0.300-4.500) uIu/ml Urine Color Urine Appearance (Clear) Urine pH (4.5-7.5) Ur Specific [place] (1.000-1.030) Urine Protein (Negative) Urine Glucose (UA) (Negative) Urine Ketones (Negative) Urine Blood (Negative) Urine Nitrite (Negative) Urine Bilirubin (Negative) Urine Urobilinogen (Negative) Ur Leukocyte Esterase (Negative) Urine WBC (Auto) (0-5) /hpf Urine RBC (Auto) (0-4) /hpf U Hyaline Cast (Auto) (0-5) /lpf U Epithel Cells (Auto) (0-5) /lpf Urine Bacteria (Auto) (Negative) Ur Random Creatinine 39.3 mg/dl Ur Random Sodium 59 mmol/L SARS-CoV-2, RNA, NAAT (NEGATIVE) Administered Medications Hydrocodone Bitart/Acetaminophen (Hydrocodone/Acetamophen 5/325mg Tab) 1 tab PO Q6H PRN PRN Reason: pain Stop: 08/27/21 09:16 Last Admin: 08/13/21 22:44 Dose: 1 tab Documented by: [id number] Alfuzosin HCl (Alfuzosin Hcl 10 Mg Tab) 10 mg PO QPM [facility] Stop: 09/12/21 20:59 Last Admin: 08/13/21 21:07 Dose: 10 mg Documented by: [id number] Amlodipine Besylate (Amlodipine Besylate 5 Mg Tab) 10 mg PO QAM [facility] Stop: 09/12/21 09:16 Last Admin: 08/14/21 08:53 Dose: 10 mg Documented by: [id number] Admin: 08/13/21 10:11 Dose: 10 mg Documented by: [id number] Aspirin (Aspirin 81 Mg Ectab) [facility] Stop: 09/12/21 09:16 Last Admin: 08/14/21 08:53 Dose: 81 mg Documented by: [id number] Admin: 08/13/21 10:11 Dose: 81 mg Documented by: [id number] Dextrose (Dextrose 50% 50 Ml Syringe) 25 - 50 ml IV UD PRN; Protocol PRN Reason: Hypoglycemia Protocol Stop: 09/12/21 09:16 Last Admin: 08/13/21 21:32 Dose: 25 ml Documented by: [id number] Escitalopram Oxalate (Escitalopram Oxalate 10 Mg Tab) 5 mg PO DAILY [facility] Stop: 09/12/21 09:16 Last Admin: 08/14/21 08:54 Dose: 5 mg Documented by: [id number] Admin: 08/13/21 10:12 Dose: 5 mg Documented by: [id number] Folic Acid (Folic Acid 1 Mg Tab) 1 mg PO QAM [facility] Stop: 09/12/21 09:16 Last Admin: 08/14/21 08:55 Dose: 1 mg Documented by: [id number] Admin: 08/13/21 10:12 Dose: 1 mg Documented by: [id number] Heparin Sodium (Porcine) (Heparin Sod 5,000 Unit/0.5 Ml Vial) 5,000 units SQ Q12 [facility] Stop: 09/12/21 09:16 Last Admin: 08/14/21 08:56 Dose: 5,000 units Documented by: [id number] Admin: 08/13/21 21:17 Dose: 5,000 units Documented by: [id number] Admin: 08/13/21 11:28 Dose: 5,000 units Documented by: [id number] Sodium Bicarbonate 150 meq/ (Dextrose) 1,150 mls @ 100 mls/hr IV .[id number] [facility] Stop: 09/13/21 10:29 Last Infusion: 08/14/21 16:36 Dose: 100 mls/hr Documented by: [id number] Admin: 08/14/21 11:11 Dose: 80 mls/hr Documented by: [id number] Insulin Aspart (Insulin Aspart Per Unit) 0 units SC ACHS [facility] Stop: 09/12/21 09:16 Last Admin: 08/14/21 12:22 Dose: Not Given Documented by: [id number] Admin: 08/14/21 08:51 Dose: Not Given Documented by: [id number] Admin: 08/13/21 21:22 Dose: Not Given Documented by: [id number] Cosigned by: [id number] Admin: 08/13/21 18:53 Dose: Not Given Documented by: [id number] Admin: 08/13/21 12:54 Dose: Not Given Documented by: [id number] Cosigned by: [id number] Admin: 08/13/21 10:12 Dose: Not Given Documented by: [id number] Levothyroxine Sodium (Levothyroxine Sodium 50 Mcg Tablet) 50 mcg PO DAILYBB [facility] Stop: 09/12/21 09:16 Last Admin: 08/14/21 05:48 Dose: Not Given Documented by: [id number] Admin: 08/13/21 10:11 Dose: 50 mcg Documented by: [id number] Miscellaneous (Carbohydrates For Hypoglycemia ) 15 - 30 gm PO UD PRN PRN Reason: Hypoglycemia Protocol Stop: 09/12/21 09:16 Last Admin: 08/13/21 12:56 Dose: 30 gm Documented by: [id number] Nystatin (Nystatin Cr 15 Gm Tube) 1 appln EXT BID [facility] Stop: 09/12/21 12:44 Last Admin: 08/14/21 08:56 Dose: 1 appln Documented by: [id number] Admin: 08/13/21 21:11 Dose: 1 appln Documented by: [id number] Admin: 08/13/21 13:36 Dose: 1 appln Documented by: [id number] Ondansetron HCl (Ondansetron Inj 2 Mg/Ml 2 Ml Vial) 4 mg IV Q4H PRN PRN Reason: Nausea Stop: 09/13/21 09:37 Last Admin: 08/14/21 10:31 Dose: 4 mg Documented by: [id number] Oxybutynin Chloride (Oxybutynin Chloride 5 Mg Tab) 5 mg PO HS [facility] Stop: 09/12/21 20:59 Last Admin: 08/13/21 21:08 Dose: 5 mg Documented by: [id number] Patiromer (Patiromer Calcium Sorbitex 8.4 Gm Pack) 8.4 gm PO TODAY@1200 [facility] Stop: 09/13/21 11:59 Last Admin: 08/14/21 13:17 Dose: 8.4 gm Documented by: [id number] Pravastatin Sodium (Pravastatin Sod 10 Mg Tab) 10 mg PO QPM [facility] Stop: 09/12/21 20:59 Last Admin: 08/13/21 21:08 Dose: 10 mg Documented by: [id number] Discontinued Medications Sodium Chloride (Nss 1000ml) 1,000 mls @ 999 mls/hr IV .Q1H1M ONE Stop: 08/13/21 06:03 Last Infusion: 08/13/21 06:25 Dose: 0 mls/hr Documented by: [id number] Admin: 08/13/21 05:12 Dose: 999 mls/hr Documented by: [id number] Sodium Chloride (Nss) 500 mls @ 125 mls/hr IV .Q4H [facility] Stop: 09/12/21 05:14 Last Admin: 08/13/21 10:58 Dose: Not Given Documented by: [id number] Infusion: 08/13/21 09:21 Dose: 0 mls/hr Documented by: [id number] Admin: 08/13/21 05:12 Dose: 125 mls/hr Documented by: [id number] Lactated Ringer's (Lr) 1,000 mls @ 100 mls/hr IV .Q10H [facility] Stop: 08/14/21 05:16 Last Admin: 08/13/21 20:05 Dose: Not Given Documented by: [id number] Infusion: 08/13/21 13:29 Dose: 0 mls/hr Documented by: [id number] Admin: 08/13/21 10:12 Dose: 100 mls/hr Documented by: [id number] Dextrose/Sodium Chloride (D5w And Nss) 1,000 mls @ 75 mls/hr IV .[id number] [facility] Stop: 09/12/21 13:29 Last Infusion: 08/14/21 10:38 Dose: 0 mls/hr Documented by: [id number] Admin: 08/14/21 08:52 Dose: 100 mls/hr Documented by: [id number] Infusion: 08/14/21 08:52 Dose: 75 mls/hr Documented by: [id number] Admin: 08/13/21 23:14 Dose: 100 mls/hr Documented by: [id number] Infusion: 08/13/21 23:14 Dose: 100 mls/hr Documented by: [id number] Admin: 08/13/21 13:35 Dose: 100 mls/hr Documented by: [id number] Piperacillin Sod/Tazobactam (Sod 4.5 gm/ Dextrose) 120 mls @ 200 mls/hr IV ONE ONE; Protocol Stop: 08/14/21 10:35 Last Infusion: 08/14/21 11:11 Dose: 0 mls/hr Documented by: [id number] Admin: 08/14/21 10:31 Dose: 200 mls/hr Documented by: [id number] Lorazepam (Lorazepam 1 Mg Tab) 1 mg PO DAILY PRN PRN Reason: anxiety Stop: 09/12/21 09:25 Last Admin: 08/14/21 11:35 Dose: 1 mg Documented by: [id number] Lorazepam (Lorazepam 1 Mg Tab) 1 mg PO NOW STA Stop: 08/14/21 12:21 Last Admin: 08/14/21 12:38 Dose: 1 mg Documented by: [id number] Ondansetron HCl (Ondansetron Inj 2 Mg/Ml 2 Ml Vial) 4 mg IV NOW STA Stop: 08/13/21 06:01 Last Admin: 08/13/21 06:01 Dose: Not Given Documented by: [id number] Discharge Plan Visit Data Chief Complaint: Hypoglycemia Stated Complaint: Hypoglycemia ED Provider: Juju Damon Discharge Problem: Acute renal failure, Hypoglycemia associated with type 2 diabetes mellitus Patient Disposition: Admitted As Inpatient Discharge Instructions Interventions: ED Discharge Assessment Last Done: 08/13/21 08:58 Discharge Problem: Acute renal failure Qualifiers: Acute renal failure type: unspecified Qualified Code(s): N17.9 - Acute kidney failure, unspecified
[2021-08-13 03:54] LABS: Hematocrit (blood only) 39.9 % (42-52); Hemoglobin 13.4 g/dL (14.0-18.0); Mean Corpuscular Hemoglobin 28.9 pg (25-34); Mean Corpuscular Hgb Conc 33.6 g/dL (32-36); Mean Platelet Volume 9.9 fL (7.4-10.4); Platelet Count 280 K/uL (130-400); Red Blood Count 4.64 M/uL (4.7-6.1); White Blood Count 22.97 K/uL (4.8-10.8)
[2021-08-13 04:34] LABS: Troponin I < 0.03 ng/ml (0-0.04)
[2021-08-13 04:47] LABS: Alanine Aminotransferase 12 U/L (7-52); Albumin Globulin Ratio 1.4 (0.9-2); Albumin Level 3.6 gm/dl (3.4-5.0); Alkaline Phosphatase 50 U/L (34-104); Anion Gap 12 (3-11); Aspartate Aminotransferase 13 U/L (13-39); BUN Creatinine Ratio 12.5 (10-20); Bilirubin,Total 0.9 mg/dl (0.2-1.0); Blood Urea Nitrogen 47 mg/dl (6-23); Calcium 8.4 mg/dl (8.5-10.1); Carbon Dioxide 18 mmol/L (21-32); Chloride 101 mmol/L (98-107); Creatinine Clr Calc Pharmacy 12.9 ml/min; Est GFR (African American) 15.7 ml/min; Est GFR (Non-African American) 13.5 ml/min; Globulin 2.5 gm/dl (2.5-4.0); Glucose 141 mg/dl (70-99(Fasting)); Potassium 4.9 mmol/L (3.5-5.1); Sodium 131 mmol/L (136-145); Total Protein 6.1 gm/dl (6.0-8.3)
[2021-08-13] MEDS ORDERED: SODIUM CHLORIDE 0.9% 1000ML 1,000 ML IV ONE (05:03)
[2021-08-13] MEDS: SODIUM CHLORIDE 0.9% 500 ML IV SCH ×2 (05:12→10:58)
[2021-08-13 05:13] LABS: Immature Granulocytes # (auto) 0.11 K/uL (0.00-0.02); Immature Granulocytes % (auto) 0.5 %; Lymphocytes # (auto) 0.82 K/uL (1.2-3.4); Lymphocytes % (auto) 3.6 %; Monocytes # (auto) 0.84 K/uL (0.11-0.59); Monocytes % (auto) 3.7 %; Neutrophils % (auto) 92.2 %
[2021-08-13] MEDS ORDERED: ONDANSETRON INJ 2 MG/ML 2 ML VIAL IV STA (06:00)
[2021-08-13 06:25] LABS: Appearance Urine Clear (Clear); Bacteria Urine Automated Negative (Negative); Bilirubin Urine Negative (Negative); Blood Urine 1+ (Negative); Color Urine Yellow; Glucose Urine UA Negative (Negative); Ketones Urine Negative (Negative); Leukocyte Esterase Urine 1+ (Negative); Nitrite Urine Negative (Negative); Specific Gravity Urine 1.009 (1.000-1.030); Urobilinogen Urine Negative (Negative); WBC Urine Automated >30 /hpf (0-5); pH Urine 7.5 (4.5-7.5)
[2021-08-13 06:33] LABS: Protein Urine 2+ (Negative)
--- NOTE | 2021-08-13 06:46 | History & Physical Report ---
Date of Service August 13, 2021 Assessment & Plan (1) JAME (acute kidney injury): Plan: 86yo male presenting from [facility] after being found unresponsive with blood sugar in the 30's. Found with acute on chronic kidney injury with BUN of 47 (up from 35 on 08/08/21) and Cr of 3.77 (up from 1.97 on 08/08/21). Patient is complaining of need to urinate. Only able to pass a few drops with bedside urinal. Bladder scan after IVF with only 180mL. Ddx to include prerenal, renal, obstructive -Admit to medical -Place Ho catheter and monitor output -Renal ultrasound -Check urine Na and Cr to calculate FeNA -Check serum CK -LR at 100mL/hr x 2 liters -BMP q 12 hours with next ordered for today at 17:00 -Check PO4 x 1 -Avoid nephrotoxic agents -Renal dosing where needed (2) Hypoglycemia: Plan: Patient with report of hypoglycemia prior to arrival. He was administered oral glucose as well as D10 with improvement in blood sugar, now 141. ?Decreased PO intake, ?decreased medication clearance with JAME on CKD> Patient is on Metformin as well as Glipizide outpatient. -Hold oral agents -Fingerstick qHS qAC and more frequently if needed -ISS, goal blood sugar 100 - 140 -Would strongly consider decreasing patient's home Glipizide dose on discharge - he is on maximum dose of 20mg BID -Check HgbA1C (3) HTN (hypertension): Plan: Blood pressure mildly elevated. -Continue Amlodipine 10mg po qAM (4) Primary bladder malignant neoplasm: Plan: Patient is s/p TURBT performed in April 2021 -Continue Oxybutynin - is on outpatient records. ?if bladder spasm account for patient's feeling of needing to urinate (5) Stroke: Plan: Noted. No focal deficits -Continue ASA 81mg po daily -Continue Pravastatin (6) Hypothyroidism: Plan: Chronic. Stable on medications -Continue Synthroid 50mcg po daily (7) Controlled type 2 diabetes mellitus with chronic kidney disease: Plan: Patient with Type II DM on oral agents presenting with hypoglycemia. Last HgbA1C in November 2020 = 7 -Hold oral agents -ISS, goal blood sugar 100 - 140 -Consider adjustment of home medications to hopefully avoid hypoglycemic events in the future (8) Anxiety disorder: Plan: Chronic -Continue Escitalopram 5mg po daily -Ativan 1mg po daily as needed (9) Dementia: Plan: Chronic -Frequent reorientation -Avoid delirium inducing agents where able Plan: F/E/N - LR at 100mL/hr x 2 liters, BMP BID to monitor electrolytes and renal function, CC diet as tolerated Ppx - Heparin BID Code - Full per discussion with patient Dispo -Admit to medical History of Present Illness Chief Complaint: hypoglycemia Primary Care Provider: [facility] Dm Mares is an 86yo male with history of DM on oral hypoglycemics, HTN, GERD and Hypothyroidism presenting from [facility] with hypoglycemia. Patient was seen in the ER on 08/08/21 with hypoglycemia and increased confusion. His blood sugar at that time was 41. He was given glucose tabs with improvement. His only complaint at that time was not being able to urinate. Patient returns today with a similar story. He was found by staff to be unresponsive today with a blood sugar in the 30's. Blood sugar of 42 by EMS. He was administered oral glucose and D10 with improvement. Patient is complaining of no being able to urinate. Otherwise, denies complaints of fever, chills, nausea, vomiting, abdominal pain, chest pain, cough or SOB. No additional complaints at this time. In the ER patient afebrile, HD stable. Repeat fingerstick improved to 141. Laboratory workup reveals worsening of leukocytosis with WBC=11.97 as well as JAME on CKD with BUN=47, Cr of 3.77. Bladder scan with 180mL present ER Course: NSS x 1500mL, Zofran 4mg IV Allergies Allergy/AdvReac Type Severity Reaction Status Date / Time saxagliptin AdvReac Unknown Unknown Verified 07/10/21 16:10 Home Medications Medication Instructions Recorded Confirmed Type levothyroxine 50 mcg tablet 50 mcg PO QAM 09/14/18 08/13/21 History metformin 1,000 mg tablet 1,000 mg PO BID #180 tab 02/07/20 08/13/21 Rx aspirin 81 mg tablet,delayed 81 mg PO QAM 06/12/20 08/13/21 History release folic acid 1 mg tablet 1 mg PO QAM 06/12/20 08/13/21 History glipizide 10 mg tablet 20 mg PO BID tab 06/19/20 08/13/21 History amlodipine 10 mg tablet 10 mg PO QAM 06/23/20 08/13/21 History pravastatin 10 mg tablet 10 mg PO QPM 06/23/20 08/13/21 History alfuzosin 10 mg tablet,extended 10 mg PO QPM 01/18/21 08/13/21 History release 24 hr docusate sodium 100 mg capsule 100 mg PO DAILY PRN 01/18/21 08/13/21 History (Colace) iron,carbonyl 65 mg-vitamin C 125 1 tab PO QPM 01/18/21 08/13/21 History mg tablet,delayed release (Vitron-C) polyethylene glycol 400 0.25 % eye 1 drp OPHTHALMIC (EYE) UD PRN 01/18/21 08/13/21 History drops terbinafine HCl 1 % topical cream 1 applic TOPICAL BID PRN 01/18/21 08/13/21 History hydrocodone 5 mg-acetaminophen 325 1 tab PO Q6H PRN #15 tab 06/07/21 08/13/21 Rx mg tablet escitalopram oxalate 10 mg tablet 5 mg PO DAILY #30 tab 06/25/21 08/13/21 Rx nystatin 100,000 unit/gram topical 1 applic TOPICAL BID 14 Days #30 g 07/10/21 08/13/21 Rx cream lorazepam 1 mg tablet 1 mg PO DAILY PRN #30 tab 07/16/21 08/13/21 Rx sulfamethoxazole 800 1 tab PO BID 08/08/21 08/08/21 History mg-trimethoprim 160 mg tablet (Bactrim DS) Past Med/Surg History Medical History (Updated 08/13/21 @ 06:31 by Nisha Conroy DO) Anxiety and depression Chronic kidney disease Stage 3 Dementia Diabetes mellitus, type 2 NIDDM GERD (gastroesophageal reflux disease) Occasional Hematuria Occasional History of bladder cancer S/P TURBT History of colon cancer s/p bowel resection/chemo (15+ years ago) History of prostate cancer s/p brachytherapy HTN (hypertension) Hypothyroidism Internal hemorrhoids Stroke 2017, residual short term memory loss Surgical History History of bladder surgery TURBT (03/11/16): LMA#5 at [facility] TURBT (01/30/21): LMA#5 igel at [facility] > "Per anesthesia post-op progress note (01/30/21): The patient is awake and comfortable in PACU although he would like to use the commode. He was hypertensive preoperatively with BP 170/90. He did not take his amlodipine today. In the PACU his BP was 170s/100s. He was treated with labetalol and is now 160s/80s. His other vital signs are stable. The patient was instructed to take his amlodipine when he goes home." History of bowel resection History of brachytherapy History of cataract extraction with lens replacement R/L History of colonoscopy History of placement of ear tubes History of prostate surgery History of tonsillectomy History of tooth extraction Hx of transurethral resection of prostate Nausea and vomiting after administration of anesthetic agent S/P arthroscopy of right shoulder S/P tube myringotomy Family History Sister Breast cancer Brother Alcoholism Cirrhosis Family/Other Prostate cancer Diabetes Colorectal cancer Stroke Mother Liver cancer Father Lung cancer Other Hypertension No family history of adverse response to anesthesia Social History Smoking Status: Former smoker Tobacco Type: Cigarettes Age Started Using Tobacco: 11; Age Quit Using Tobacco: 31; packs per day: 4; Years Smoked: 20; Number of Years Since Quit: 53; Second Hand Exposure: No; Hx Alcohol Use: No Hx Substance Use: No Preferred Language: Gambian Communication Ability: Effective Visual Impairment: No Limitations Plastic Surgery Assistant Required: No Beliefs That Will Affect Care: None marital status: / Current Living Situation: Alone Current Living Situation Comment: DAUGHTER LIVES CLOSE BY (NEIGHBOR ASSISTS) current occupational status: retired 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 Feels Safe at Home: Yes Seatbelt Use: always Assistive Devices: Denture - Upper, Denture - Lower, Glasses and Hearing Aid - Bilateral Review of Systems Review of Systems: All systems reviewed & are unremarkable except as noted in HPI & below Physical Exam Physical Exam: General: patient restless, complaining that he has to urinate, NAD and nontoxic in appearance, AA&O to person and location Skin: warm, dry, intact, no rashes or lesions HEENT: NC/AT, PERRL, EOMI, anicteric sclera, conjunctiva without injection, external ear normal to inspection and nontender, nares patent, moist mucus membranes, dentition intact, no oropharyngeal lesions, neck supple, trachea midline, no LAD, no thyromegaly, no JVD Heart: +S1/S2, regular, no m/r/g Lungs: equal air entry bilaterally, no rales/rhonchi/wheezes Abd: +BS, soft, NT/ND, no masses/organomegaly/ascites, mild suprapubic tenderness Ext: warm, 2+ pulses in UE/LE bilaterally, no clubbing/cyanosis or edema Neuro: nonfocal, patient AA&O x 2, speech intact, no facial droop, moving all ex tremities on command with equal strength 5/5, occasional myoclonic jerking Results & Data Results & Data ([facility]) Vital Signs (Past 12 Hours) Vital Signs Temp Pulse Resp BP Pulse Ox 08/13/21 05:30 18 160/86 H 95 08/13/21 05:00 17 126/57 L 95 08/13/21 04:30 78 16 131/63 97 08/13/21 04:00 61 15 134/69 96 08/13/21 03:33 36.7 C 76 18 183/90 H 98 Laboratory Results Laboratory Results WBC 22.97 K/uL (4.8-10.8) H 08/13/21 03:35 RBC 4.64 M/uL (4.7-6.1) L 08/13/21 03:35 Hgb 13.4 g/dL (14.0-18.0) L 08/13/21 03:35 Hct 39.9 % (42-52) L 08/13/21 03:35 MCV 86.0 fL (80-100) 08/13/21 03:35 MCH 28.9 pg (25-34) 08/13/21 03:35 MCHC 33.6 g/dL (32-36) 08/13/21 03:35 RDW Std Deviation 41.0 fL (36.4-46.3) 08/13/21 03:35 RDW Coeff of Tracey 13.0 % (11.5-14.5) 08/13/21 03:35 Plt Count 280 K/uL (130-400) 08/13/21 03:35 MPV 9.9 fL (7.4-10.4) 08/13/21 03:35 Immature Gran % (Auto) 0.5 % 08/13/21 03:35 Neut % (Auto) 92.2 % 08/13/21 03:35 Lymph % (Auto) 3.6 % 08/13/21 03:35 [place] % (Auto) 3.7 % 08/13/21 03:35 Eos % (Auto) 0.0 % 08/13/21 03:35 Baso % (Auto) 0.0 % 08/13/21 03:35 Neut # (Auto) 21.20 K/uL (1.4-6.5) H 08/13/21 03:35 Lymph # (Auto) 0.82 K/uL (1.2-3.4) L 08/13/21 03:35 [place] # (Auto) 0.84 K/uL (0.11-0.59) H 08/13/21 03:35 Eos # (Auto) 0.00 K/uL (0-0.5) 08/13/21 03:35 Baso # (Auto) 0.00 K/uL (0-0.2) 08/13/21 03:35 Immature Gran # (Auto) 0.11 K/uL (0.00-0.02) H 08/13/21 03:35 Sodium 131 mmol/L (136-145) L 08/13/21 03:35 Potassium 4.9 mmol/L (3.5-5.1) 08/13/21 03:35 Chloride 101 mmol/L (98-107) 08/13/21 03:35 Carbon Dioxide 18 mmol/L (21-32) L 08/13/21 03:35 Anion Gap 12 (3-11) H 08/13/21 03:35 BUN 47 mg/dl (6-23) H 08/13/21 03:35 Creatinine 3.77 mg/dl (0.6-1.4) H 08/13/21 03:35 Est Cr Clr Drug Dosing 12.9 ml/min 08/13/21 03:35 Est GFR ( Amer) 15.7 ml/min 08/13/21 03:35 Est GFR (Non-Af Amer) 13.5 ml/min 08/13/21 03:35 BUN/Creatinine Ratio 12.5 (10-20) 08/13/21 03:35 Glucose 141 mg/dl (70-99(Fasting)) H 08/13/21 03:35 Calcium 8.4 mg/dl (8.5-10.1) L 08/13/21 03:35 Total Bilirubin 0.9 mg/dl (0.2-1.0) 08/13/21 03:35 AST 13 U/L (13-39) 08/13/21 03:35 ALT 12 U/L (7-52) 08/13/21 03:35 Alkaline Phosphatase 50 U/L (34-104) 08/13/21 03:35 Troponin I < 0.03 ng/ml (0-0.04) 08/13/21 03:35 Total Protein 6.1 gm/dl (6.0-8.3) 08/13/21 03:35 Albumin 3.6 gm/dl (3.4-5.0) 08/13/21 03:35 Globulin 2.5 gm/dl (2.5-4.0) 08/13/21 03:35 Albumin/Globulin Ratio 1.4 (0.9-2) 08/13/21 03:35 TSH 2.698 uIu/ml (0.300-4.500) 08/13/21 03:35 SARS-CoV-2, RNA, NAAT NEGATIVE (NEGATIVE) 08/13/21 05:24 Code Status & VTE Plan VTE Prophylaxis Plan VTE Prophylaxis will be ordered: Yes PG Care Time/CCT Total # of Minutes Spent Total Time Spent with Patient: Total time spent is greater than 50% in coordination of care (as documented) at patient's floor/unit and/or counseling patient: Coding Level of Care Code 34016 Initial Inpt Care Lvl 3 Diagnoses Hypoglycemia E16.2 HTN (hypertension) I10 Primary bladder malignant neoplasm C67.9 Stroke I63.9 Hypothyroidism E03.9 Controlled type 2 diabetes mellitus with chronic kidney disease E11.22 Anxiety disorder F41.9 Dementia F03.90 JAME (acute kidney injury) N17.9
--- NOTE | 2021-08-13 07:35 | XRay Report ---
XR chest 1V portable CLINICAL HISTORY: weakness. Evaluate cardiopulmonary status COMPARISON STUDY: 01/23/2021 TECHNIQUE: 1 view of the chest FINDINGS: Single frontal view of the chest demonstrates the cardiomediastinal silhouette to be within normal li mits. The lungs are clear of alveolar opacities. There is no evidence for pleural effusion. There is no evidence for vascular congestion. There is no acute osseous pathology. IMPRESSION: 1. No acute cardiopulmonary disease. ACT 112: Negative or not required by law. Electronically signed by: Surjit Ceja M.D. 08/13/2021 7:33 AM
--- NOTE | 2021-08-13 08:35 | Ultrasound Report ---
ULTRASOUND KIDNEYS AND BLADDER CLINICAL HISTORY: Acute renal insufficiency. COMPARISON STUDY: Abdominal CT dated 12/11/2018. TECHNIQUE: Real-time, grayscale, and color flow sonography of the kidneys and bladder is performed. I mages are reviewed in the transverse and longitudinal planes. FINDINGS: Kidneys: The kidneys demonstrate mild cortical atrophy. Echotexture is normal. The right kidney measu res 11.1 cm in length and the left kidney measures 11.1 cm in length. There is mild bilateral hydrour eteronephrosis. No shadowing renal calculi are identified. There is no sonographic evidence of contou r deforming renal mass lesion. No perinephric fluid is identified. Bladder: The bladder is decompressed around a Ho catheter and could not be assessed. IMPRESSION: 1. The kidneys demonstrate mild cortical atrophy. 2. There is mild bilateral hydroureteronephrosis. 3. The bladder is decompressed around a Ho catheter and could not be assessed. ACT 112: Negative or not required by law. Electronically signed by: Job Galeano M.D. 08/13/2021 8:34 AM
[2021-08-13] MEDS ORDERED: ACETAMINOPHEN 325 MG TAB PO PRN (09:17)
[2021-08-13] MEDS ORDERED: DOCUSATE SODIUM 100 MG CAP PO PRN (09:17)
[2021-08-13] MEDS ORDERED: GLUCAGON FOR INJ 1 MG VIAL SQ PRN (09:17)
[2021-08-13] MEDS ORDERED: GLUCOSE 10 TABS/TUBE PO PRN (09:17)
[2021-08-13] MEDS ORDERED: POLYETHYLENE GLYCOL OP PRN (09:17)
[2021-08-13] MEDS ORDERED: HYDROCODONE/ACETAMOPHEN 5/325MG TAB PO PRN (09:17)
[2021-08-13] MEDS ORDERED: GLUCOSE 40% GEL 15 GM TUBE PO PRN (09:17)
[2021-08-13] MEDS ORDERED: LORazepam 1 MG TAB PO PRN (09:26)
[2021-08-13] MEDS: LEVOTHYROXINE SODIUM 50 MCG TABLET PO SCH (10:11)
[2021-08-13] MEDS: ASPIRIN 81 MG ECTAB PO SCH (10:11)
[2021-08-13] MEDS: amLODIPine BESYLATE 5 MG TAB PO SCH (10:11)
[2021-08-13] MEDS: INSULIN ASPART PER UNIT SC SCH ×4 (10:12→21:22)
[2021-08-13] MEDS: ESCITALOPRAM OXALATE 10 MG TAB PO SCH (10:12)
[2021-08-13] MEDS: FOLIC ACID 1 MG TAB PO SCH (10:12)
[2021-08-13] MEDS: LACTATED RINGER'S 1,000 ML IV SCH ×2 (10:12→20:05)
[2021-08-13 10:26] LABS: Magnesium 2.2 mg/dl (1.7-2.4); Phosphorus 3.6 mg/dl (2.5-4.9)
[2021-08-13 11:10] LABS: Creatinine Urine Random 39.3 mg/dl
[2021-08-13] MEDS: HEPARIN SOD 5,000 UNIT/0.5 ML VIAL SQ SCH ×2 (11:28→21:17)
[2021-08-13] MEDS: CARBOHYDRATES FOR HYPOGLYCEMIA PO PRN (12:56)
[2021-08-13] MEDS: D5W AND NSS 1,000 ML IV SCH ×2 (13:35→23:14)
[2021-08-13] MEDS: NYSTATIN CR 15 GM TUBE EXT SCH ×2 (13:36→21:11)
--- NOTE | 2021-08-13 13:49 | Hospitalist Progress Note ---
Date of Service August 13, 2021 Assessment & Plan (1) JAME (acute kidney injury): Plan: Administer intravenous fluids. Monitor intake and output. Discontinue any diu retics. Serial lab studies (2) Hypoglycemia: Plan: Discontinued glipizide and Metformin on admission. IV fluids containing D5W. Monitor Accu-Cheks. ADA diet. (3) HTN (hypertension): Plan: Blood pressure mildly elevated on admission. -Continue Amlodipine 10mg po qAM (4) Primary bladder malignant neoplasm: Plan: Patient is s/p TURBT performed in April 2021 -Continue Oxybutynin . (5) Stroke: Plan: Remote. No focal deficits -Continue ASA 81mg po daily -Continue Pravastatin (6) Hypothyroidism: Plan: Chronic. 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 Discontinued oral agents -ISS. ADA diet (8) Anxiety disorder: Plan: Chronic -Continue Escitalopram 5mg po daily -Ativan 1mg po daily as needed (9) Dementia: Plan: Chronic -Frequent reorientation -Avoid delirium inducing agents where able Plan: F/E/N - LR at 100mL/hr x 2 liters, BMP BID to monitor electrolytes and renal function, CC diet as tolerated Ppx - Heparin BID Code - Full Dispo -eventual discharge back to home. Admission and Anticipated Discharge Date Admission Date: August 13, 2021 Subjective The patient is alert and oriented. He states he has noticed palpitations and this may have contributed to syncope with some sort of arrhythmia. Right arm twitching is intermittent and not new. His symptoms do not sound like new onset seizure disorder. He was hypoglycemic in the ED and continues to have ongoing hyperglycemia. Oral medications have been stopped including Metformin and sulfonylureas. D5W added IV fluids. Continuous IV fluids for blood pressure support. No evidence of CVA at this time. Review of Systems Review of Systems: Constitutional-no fever or chills ENT-no blurred vision, no double vision, no epistaxis, no sore throat Respiratory-no cough, no wheezing, no shortness of breath Cardiac-no palpitations, no chest pain, no syncope GI-no nausea, vomiting, diarrhea, melena, hematochezia -no urinary retention, no urinary incontinence, no dysuria, no hematuria Musculoskeletal-no joint pain, no muscle tenderness Skin-no bruising, no rashes, no pruritus Neuro-no isolated weakness, no paresthesia, no weakness Psych-no depression, no anxiety Physical Exam Physical Exam: General-alert and oriented x3, no fevers, no chills HEENT-head atraumatic and normocephalic, TMs intact bilaterally, pupils equal and reactive to light, extraocular muscles intact Neck-no lymphadenopathy or thyromegaly, trachea midline Chest-clear to auscultation percussion. No rales wheezing or rhonchi Cardiac-regular rate and rhythm, normal S1 and S2, no murmurs Abdomen-normal bowel sounds, nontender, no hepatosplenomegaly Extremities-no cyanosis, clubbing, or edema. Intermittent twitching muscular movements right arm/elbow Neuro-cranial nerves II through XII intact, motor and sensory function within normal limits, strength symmetrical 5/5, no focal deficits Psych-normal affect, normal mood Results & Data Results & [facility] ([facility]) Vital Signs (Past 12 Hours) Vital Signs Temp Pulse Pulse Resp BP BP Pulse Ox 08/13/21 11:31 80 20 122/98 99 08/13/21 09:00 159/95 H 99 08/13/21 08:53 78 18 151/114 H 99 08/13/21 08:51 97 08/13/21 06:31 91 H 23 08/13/21 06:30 136/93 08/13/21 06:15 19 08/13/21 06:00 23 08/13/21 05:30 18 160/86 H 95 08/13/21 05:00 17 126/57 L 95 08/13/21 04:30 78 16 131/63 97 08/13/21 04:00 61 15 134/69 96 08/13/21 03:33 36.7 C 76 18 183/90 H 98 Laboratory Results 08/13/21 03:35 08/13/21 03:35 PG Care Time/CCT Total # of Minutes Spent Total Time Spent with Patient: Total time spent is greater than 50% in coordination of care (as documented) at patient's floor/unit and/or counseling patient: Coding Level of Care Code 52368 Subseq Hosp Care Lvl 3 Diagnoses JAME (acute kidney injury) N17.9 Hypoglycemia E16.2 HTN (hypertension) I10 Primary bladder malignant neoplasm C67.9 Stroke I63.9 Hypothyroidism E03.9 Controlled type 2 diabetes mellitus with chronic kidney disease E11.22 Anxiety disorder F41.9 Dementia F03.90
[2021-08-13] MEDS: ALFUZOSIN HCL 10 MG TAB PO SCH (21:07)
[2021-08-13] MEDS: PRAVASTATIN SOD 10 MG TAB PO SCH (21:08)
[2021-08-13] MEDS: OXYBUTYNIN CHLORIDE 5 MG TAB PO SCH (21:08)
[2021-08-13] MEDS: DEXTROSE 50% 50 ML SYRINGE IV PRN (21:32)
--- NOTE | 2021-08-13 22:38 | Electrocardiogram Report ---
Test Reason : Blood Pressure : / mmHG Vent. Rate : 064 BPM Atrial Rate : 064 BPM P-R Int : 238 ms QRS Dur : 090 ms QT Int : 430 ms P-R-T Axes : 065 056 061 degrees QTc Int : 443 ms Sinus rhythm with sinus arrhythmia with 1st degree A-V block Low voltage QRS Borderline ECG When compared with ECG of 08-AUG-2021 07:08, No significant change was found Confirmed by Angel Dennis ([id number]) on 08/13/2021 10:38:27 PM Referred By: [facility] Confirmed By:Angel Dennis
[2021-08-14] MEDS: LEVOTHYROXINE SODIUM 50 MCG TABLET PO SCH (05:48)
[2021-08-14 05:52] LABS: Basophils # (auto) 0.01 K/uL (0-0.2); Basophils % (auto) 0.1 %; Eosinophils # (auto) 0.02 K/uL (0-0.5); Eosinophils % (auto) 0.1 %; Hematocrit (blood only) 36.9 % (42-52); Hemoglobin 12.4 g/dL (14.0-18.0); Immature Granulocytes # (auto) 0.07 K/uL (0.00-0.02); Immature Granulocytes % (auto) 0.4 %; Lymphocytes # (auto) 1.03 K/uL (1.2-3.4); Lymphocytes % (auto) 5.5 %; Mean Corpuscular Hemoglobin 28.9 pg (25-34); Mean Corpuscular Hgb Conc 33.6 g/dL (32-36); Mean Platelet Volume 9.6 fL (7.4-10.4); Monocytes # (auto) 0.77 K/uL (0.11-0.59); Monocytes % (auto) 4.1 %; Neutrophils # (auto) 16.77 K/uL (1.4-6.5); Neutrophils % (auto) 89.8 %; Platelet Count 261 K/uL (130-400); RDW Coefficient of Variation 13.2 % (11.5-14.5); RDW Standard Deviation 41.7 fL (36.4-46.3); Red Blood Count 4.29 M/uL (4.7-6.1); White Blood Count 18.67 K/uL (4.8-10.8)
[2021-08-14 06:22] LABS: Calcium 7.6 mg/dl (8.5-10.1); Creatinine Clr Calc Pharmacy 8.6 ml/min; Est GFR (African American) 10.5 ml/min; Est GFR (Non-African American) 9.1 ml/min; Potassium 5.4 mmol/L (3.5-5.1)
[2021-08-14 07:51] LABS: Estimated Average Glucose 120 mg/dl; Hemoglobin A1C 5.8 % (4.5-5.6)
[2021-08-14] MEDS: INSULIN ASPART PER UNIT SC SCH ×4 (08:51→20:32)
[2021-08-14] MEDS: D5W AND NSS 1,000 ML IV SCH (08:52)
[2021-08-14] MEDS: ASPIRIN 81 MG ECTAB PO SCH (08:53)
[2021-08-14] MEDS: amLODIPine BESYLATE 5 MG TAB PO SCH (08:53)
[2021-08-14] MEDS: ESCITALOPRAM OXALATE 10 MG TAB PO SCH (08:54)
[2021-08-14] MEDS: FOLIC ACID 1 MG TAB PO SCH (08:55)
[2021-08-14] MEDS: HEPARIN SOD 5,000 UNIT/0.5 ML VIAL SQ SCH ×2 (08:56→20:20)
[2021-08-14] MEDS: NYSTATIN CR 15 GM TUBE EXT SCH ×2 (08:56→20:20)
[2021-08-14] MEDS ORDERED: PIPERACILL/TAZOBAC CONSULT ACTIVE PRN (09:40)
--- NOTE | 2021-08-14 09:51 | Nephrology Consultation ---
Date of Consultation August 14, 2021 Assessment & Plan (1) JAME (acute kidney injury): * Oliguric JAME/CKD concerning for obstruction. Patient has bladder CA. 12/[address] revealed numerous enlarged mesenteric and retroperitoneal lymph nodes typical for a lymphoproliferative disorder * Urine microscopy is difficult to interpret due to underlying bladder malignancy. No cellular casts reported * Will add NaHCO3 to IVF to correct metabolic acidosis, hyponatremia and hyperkalemia * No acute indication for HD. Patient is clinically euvolemic and electrolyte abnormalities can be managed medically (2) Chronic kidney disease: * Baseline Cr 1.4. Imaging reveals cortical atrophy c/w microvascular disease (3) Hypoglycemia: * Likely due to metformin and glipizide in the setting of JAME * Agree w/ holding metformin and glipizide and managing blood sugar w/ insulin therapy (4) Primary bladder malignant neoplasm: * Recommend consultation w/ Urology. Suspect patient would benefit from ureteral stenting or bilateral PCN * Consider noncontrast abdominal CT to reassess degree of abdominal/retroperitoneal lymphadenopathy (5) Hyperkalemia: * Will provide one dose Patiromer this am * Add NaHCO3 to IVF as outlined above (6) Metabolic acidosis: * See JAME above History of Present Illness Reason for Consultation: JAME/CKD Attending Physician: Ryan Bell MD History of Present Illness Mr. Mares is an 86 year old white male who is seen at the request of Dr. Bell for evaluation of JAME/CKD. Medical records in the EMR were reviewed today and are summarized as follows: Mr. Mares has stage III CKD (moderate impairment). Baseline Cr has been 1.4 w/ EGFR 46 cc/min. He has not undergone Nephrology evaluation in the past. His CKD is presumed to be on the basis of microvascular disease. Mr. Mares's medical history is also significant for AODM, bladder/colon/prostate CA, CVA (2017), and dementia. He is a resident at [facility]. In Jun 2021 Mr. Mares was found to have recurrence of bladder cancer. Consideration was given to further BCG therapy. Conservative management was pursued due to patient's frail health and dementia. Yesterday patient was found unresponsive at [facility]. BSG was in the mid 30s. Mr. Mares was transported to [facility] where his condition improved following dextrose infusion. Admission Cr was 3.7. This has since risen to 5.2. UO has only been 100 cc despite Ho catheter insertion. Renal US reveals mild bilateral hydronephrosis. Allergies Allergy/AdvReac Type Severity Reaction Status Date / Time saxagliptin AdvReac Unknown Unknown Verified 07/10/21 16:10 Home Medications Medication Instructions Recorded Confirmed Type levothyroxine 50 mcg tablet 50 mcg PO QAM 09/14/18 08/13/21 History metformin 1,000 mg tablet 1,000 mg PO BID #180 tab 02/07/20 08/13/21 Rx aspirin 81 mg tablet,delayed 81 mg PO QAM 06/12/20 08/13/21 History release folic acid 1 mg tablet 1 mg PO QAM 06/12/20 08/13/21 History glipizide 10 mg tablet 20 mg PO BID tab 06/19/20 08/13/21 History amlodipine 10 mg tablet 10 mg PO QAM 06/23/20 08/13/21 History pravastatin 10 mg tablet 10 mg PO QPM 06/23/20 08/13/21 History alfuzosin 10 mg tablet,extended 10 mg PO QPM 01/18/21 08/13/21 History release 24 hr docusate sodium 100 mg capsule 100 mg PO DAILY PRN 01/18/21 08/13/21 History (Colace) iron,carbonyl 65 mg-vitamin C 125 1 tab PO QPM 01/18/21 08/13/21 History mg tablet,delayed release (Vitron-C) polyethylene glycol 400 0.25 % eye 1 drp OPHTHALMIC (EYE) UD PRN 01/18/21 08/13/21 History drops terbinafine HCl 1 % topical cream 1 applic TOPICAL BID PRN 01/18/21 08/13/21 History hydrocodone 5 mg-acetaminophen 325 1 tab PO Q6H PRN #15 tab 06/07/21 08/13/21 Rx mg tablet escitalopram oxalate 10 mg tablet 5 mg PO DAILY #30 tab 06/25/21 08/13/21 Rx nystatin 100,000 unit/gram topical 1 applic TOPICAL BID 14 Days #30 g 07/10/21 08/13/21 Rx cream lorazepam 1 mg tablet 1 mg PO DAILY PRN #30 tab 07/16/21 08/13/21 Rx sulfamethoxazole 800 1 tab PO BID 08/08/21 08/08/21 History mg-trimethoprim 160 mg tablet (Bactrim DS) Patient History Medical History Anxiety and depression Chronic kidney disease Stage 3 Dementia Diabetes mellitus, type 2 NIDDM GERD (gastroesophageal reflux disease) Occasional Hematuria Occasional History of bladder cancer S/P TURBT History of colon cancer s/p bowel resection/chemo (15+ years ago) History of prostate cancer s/p brachytherapy HTN (hypertension) Hypothyroidism Internal hemorrhoids Stroke 2017, residual short term memory loss Surgical History History of bladder surgery TURBT (03/11/16): LMA#5 at [facility] TURBT (01/30/21): LMA#5 igel at [facility] > "Per anesthesia post-op progress note (01/30/21): The patient is awake and comfortable in PACU although he would like to use the commode. He was hypertensive preoperatively with BP 170/90. He did not take his amlodipine today. In the PACU his BP was 170s/100s. He was treated with labetalol and is now 160s/80s. His other vital signs are stable. The patient was instructed to take his amlodipine when he goes home." History of bowel resection History of brachytherapy History of cataract extraction with lens replacement R/L History of colonoscopy History of placement of ear tubes History of prostate surgery History of tonsillectomy History of tooth extraction Hx of transurethral resection of prostate Nausea and vomiting after administration of anesthetic agent S/P arthroscopy of right shoulder S/P tube myringotomy Family History Sister Breast cancer Brother Alcoholism Cirrhosis Family/Other Prostate cancer Diabetes Colorectal cancer Stroke Mother Liver cancer Father Lung cancer Other Hypertension No family history of adverse response to anesthesia Social History Smoking Status: Never smoker Tobacco Type: Cigarettes Age Started Using Tobacco: 11; Age Quit Using Tobacco: 31; packs per day: 4; Years Smoked: 20; Number of Years Since Quit: 53; Second Hand Exposure: No; Hx Alcohol Use: No Hx Substance Use: No Preferred Language: Citizen Of [place] Communication Ability: Effective Visual Impairment: No Limitations Operations Forester Required: No Beliefs That Will Affect Care: None marital status: / Current Living Situation: Alone Current Living Situation Comment: Daughter checks in 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 occupational status: 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 Feels Safe at Home: Yes Seatbelt Use: always Assistive Devices: Walker Review of Systems Constitutional: + weakness; no fever Eyes: no problem reported Ear, Nose, Mouth, Throat: no problem reported Respiratory: no dyspnea Cardiovascular: no chest pain, no palpitations and no edema Gastrointestinal: no abdominal pain, no nausea, no vomiting and no diarrhea/loose stools Genitourinary: + urinary hesitancy and + hematuria; no dysuria Musculoskeletal: no back pain Integumentary: no rash Neurologic: no falls, no dizziness and no confusion Physical Exam Constitutional: not in distress Eyes: PERRL, conjunctivae normal, anicteric sclerae ENMT: external ear and nose normal, oropharynx normal Neck: trachea midline, no thyromegaly Respiratory: normal respiratory effort, lungs clear to auscultation Cardiovascular: RRR, no murmur, no edema Gastrointestinal (Abdomen): normal bowel sounds, soft, nontender, no hepatosplenomegaly Neurologic: oriented to self, month and place Results & Data ([facility]) Vital Signs (Past 12 Hours) Vital Signs Temp Pulse Resp BP BP Pulse Ox 08/14/21 07:40 36.5 C 87 18 160/75 H 98 08/13/21 23:21 164/77 H 08/13/21 23:17 36.9 C 80 19 173/79 H 97 Laboratory Results Laboratory Tests 06/01/20 01/16/21 08/08/21 00:00 11:27 07:19 WBC Hgb Hct Plt Count Sodium Potassium Chloride Carbon Dioxide BUN Creatinine 1.4 1.50 H 1.97 H Estimat Average Glucose Hemoglobin A1c Calcium Urine Color Urine Appearance Urine pH Ur Specific [place] Urine Protein Urine Glucose (UA) Urine Blood Urine Nitrite Ur Leukocyte Esterase Urine WBC (Auto) Urine RBC (Auto) U Hyaline Cast (Auto) Urine Bacteria (Auto) 08/13/21 08/13/21 08/14/21 03:35 05:24 05:39 WBC Hgb Hct Plt Count Sodium 130 L Potassium 5.4 H Chloride 104 Carbon Dioxide 18 L BUN 56 H Creatinine 3.77 H 5.26 H* D Estimat Average Glucose Hemoglobin A1c Calcium 7.6 L Urine Color Yellow Urine Appearance Clear Urine pH 7.5 Ur Specific Gar[place] 1.009 Urine Protein 2+ H Urine Glucose (UA) Negative Urine Blood 1+ H Urine Nitrite Negative Ur Leukocyte Esterase 1+ H Urine WBC (Auto) >30 H Urine RBC (Auto) 5-10 H U Hyaline Cast (Auto) 1-5 Urine Bacteria (Auto) Negative 08/14/21 08/14/21 05:39 05:39 WBC 18.67 H Hgb 12.4 L Hct 36.9 L Plt Count 261 Sodium Potassium Chloride Carbon Dioxide BUN Creatinine Estimat Average Glucose 120 Hemoglobin A1c 5.8 H Calcium Urine Color Urine Appearance Urine pH Ur Specific [place] Urine Protein Urine Glucose (UA) Urine Blood Urine Nitrite Ur Leukocyte Esterase Urine WBC (Auto) Urine RBC (Auto) U Hyaline Cast (Auto) Urine Bacteria (Auto) PG Care Time/CCT Total # of Minutes Spent Total Time Spent with Patient: Total time spent is greater than 50% in coordination of care (as documented) at patient's floor/unit and/or counseling patient: Coding Level of Care Code 30072 Inpt Consult Level 5 Diagnoses JAME (acute kidney injury) N17.9 Chronic kidney disease N18.9 Hypoglycemia E16.2 Primary bladder malignant neoplasm C67.9 Hyperkalemia E87.5 Metabolic acidosis E87.2
[2021-08-14] MEDS ORDERED: PIPERACILLIN/TAZOBACTAM 4.5 GM in DEXTROSE 5% 100 ML IV ONE (10:00)
[2021-08-14] MEDS: ONDANSETRON INJ 2 MG/ML 2 ML VIAL IV PRN (10:31)
[2021-08-14] MEDS: SODIUM BICARBONATE 8.4% 150 MEQ in DEXTROSE 5% 1,000 ML IV SCH ×2 (11:11→22:48)
--- NOTE | 2021-08-14 11:18 | Urology Consultation ---
Date of Consultation August 14, 2021 Assessment & Plan (1) JAME (acute kidney injury): (2) Hydronephrosis: (3) Primary bladder malignant neoplasm: 86yo M with a hx of bladder and prostate cancer admitted with JAME and hypoglycemia. - Urology consulted for mild bilateral hydronephrosis and ARF - Plan of care reviewed with Dr. Ritter, on-call urologist. - HERNANDEZ reviewed - Mild b/l hydronephrosis, Bladder decompressed around a Ho - CTAP reviewed - Symmetric mild to moderate b/l hydro, possibly from bladder outlet obstruction. The prostate is enlarged with brachytherapy seeds. - Pt is afebrile, labs reviewed - Wbc 18.67, Creatinine up to 5.26 today, previously 3.77 - Urine and blood cultures pending - On IV Zosyn, follow cultures - No acute intervention planned for today. Will make NPO at midnight to reassess in the morning. - Maintain Ho catheter, monitor urine output. Bladder scan as needed. - Repeat creatinine pending. - Nephrology following. - Continue supportive care, antibiotic therapy, and close monitoring - Will continue to follow History of Present Illness Reason for Consultation: Mild b/l hydronephrosis, ARF Attending Physician: Ryan Bell MD History of Present Illness 86 year old male with a past medical history significant for bladder/colon/prostate cancer, CKD, DM, CVA (2017), and dementia who presented after being found unresponsive at [facility] and was admitted with hypoglycemia and JAME. In the ER patient was afebrile, HD stable.Labs revealed leukocytosis as well as JAME on CKD. Patient also reported urinary urgency, but was only able to pass a few drops of urine in bedside urinal. Bladder scan after IVF with only 180mL. A Ho catheter was placed. A renal ultrasound was obtained and notable for mild bilateral hydronephrosis. Urology consulted for mild bilateral hydronephrosis and acute renal failure. Patient is well-known to the urology service, follows with Dr. Ritter and Dr. Harrison. Prior office notes reviewed. Hx of TCC of the Bladder, with recurrence in 2020. He is s/p TURBT x2 in the second half of 2020. He had T1 high-grade disease resected in January followed by a repeat resection of a significant portion of his bladder in May. Per his last office note, he has had worsening dementia since his second anesthesia. At his last visit, options for repeat trial of BCG, chemotherapy introduced directly into the bladder, and observation with repeat cystoscopy in 4 to 6 weeks with possible fulguration were discussed. Patient/family were considering options. Per outpatient chart review, the patients daughter did notify the office that her father did not wish to proceed with any further cancer treatment. Chart review- Renal Ultrasound impression - 1. The kidneys demonstrate mild cortical atrophy. 2. There is mild bilateral hydroureteronephrosis. 3. The bladder is decompressed around a Ho catheter and could not be assessed. CTAP impression - 1. Symmetric mild to moderate bilateral hydroureteronephrosis, possibly from bladder outlet obstruction. The prostate is enlarged with brachytherapy seeds. 2. Small pleural effusions with small volume of abdominal pelvic ascites. 3. Wall thickening of the duodenum with edema surrounding the pancreatic head and uncinate process. Although these findings may be secondary to aforementioned fluid overload, however correlation should be made with clinical history and lipase level to exclude duodenitis versus acute pancreatitis. 4. Pathologic retroperitoneal and mesenteric adenopathy is stable from the 2019 study. 5. Mildly decreased size of the chronic subcentimeter perisplenic fluid collection. Pt examined at bedside this afternoon. Asleep on arrival, awakened to name. Daughter at bedside. No acute distress. Denies abdominal,flank, and suprapubic pain at present. No fevers or chills. Ho catheter intact, with small amount of dean colored urine in bag. Denies nausea/vomiting. Documented urine output at this point today is 150ml. Per nursing, patient reported feeling urinary urgency and requested to sit on commode to urinate. Pt was bladder scanned for 1ml by nursing. Offered no additional complaints at time of exam. Allergies Allergy/AdvReac Type Severity Reaction Status Date / Time saxagliptin AdvReac Unknown Unknown Verified 07/10/21 16:10 Home Medications Medication Instructions Recorded Confirmed Type levothyroxine 50 mcg tablet 50 mcg PO QAM 09/14/18 08/13/21 History metformin 1,000 mg tablet 1,000 mg PO BID #180 tab 02/07/20 08/13/21 Rx aspirin 81 mg tablet,delayed 81 mg PO QAM 06/12/20 08/13/21 History release folic acid 1 mg tablet 1 mg PO QAM 06/12/20 08/13/21 History glipizide 10 mg tablet 20 mg PO BID tab 06/19/20 08/13/21 History amlodipine 10 mg tablet 10 mg PO QAM 06/23/20 08/13/21 History pravastatin 10 mg tablet 10 mg PO QPM 06/23/20 08/13/21 History alfuzosin 10 mg tablet,extended 10 mg PO QPM 01/18/21 08/13/21 History release 24 hr docusate sodium 100 mg capsule 100 mg PO DAILY PRN 01/18/21 08/13/21 History (Colace) iron,carbonyl 65 mg-vitamin C 125 1 tab PO QPM 01/18/21 08/13/21 History mg tablet,delayed release (Vitron-C) polyethylene glycol 400 0.25 % eye 1 drp OPHTHALMIC (EYE) UD PRN 01/18/21 08/13/21 History drops terbinafine HCl 1 % topical cream 1 applic TOPICAL BID PRN 01/18/21 08/13/21 History hydrocodone 5 mg-acetaminophen 325 1 tab PO Q6H PRN #15 tab 06/07/21 08/13/21 Rx mg tablet escitalopram oxalate 10 mg tablet 5 mg PO DAILY #30 tab 06/25/21 08/13/21 Rx nystatin 100,000 unit/gram topical 1 applic TOPICAL BID 14 Days #30 g 07/10/21 08/13/21 Rx cream lorazepam 1 mg tablet 1 mg PO DAILY PRN #30 tab 07/16/21 08/13/21 Rx sulfamethoxazole 800 1 tab PO BID 08/08/21 08/08/21 History mg-trimethoprim 160 mg tablet (Bactrim DS) Patient History Medical History Anxiety and depression Chronic kidney disease Stage 3 Dementia Diabetes mellitus, type 2 NIDDM GERD (gastroesophageal reflux disease) Occasional Hematuria Occasional History of bladder cancer S/P TURBT History of colon cancer s/p bowel resection/chemo (15+ years ago) History of prostate cancer s/p brachytherapy HTN (hypertension) Hypothyroidism Internal hemorrhoids Stroke 2017, residual short term memory loss Surgical History History of bladder surgery TURBT (03/11/16): LMA#5 at [facility] TURBT (01/30/21): LMA#5 igel at [facility] > "Per anesthesia post-op progress note (01/30/21): The patient is awake and comfortable in PACU although he would like to use the commode. He was hypertensive preoperatively with BP 170/90. He did not take his amlodipine today. In the PACU his BP was 170s/100s. He was treated with labetalol and is now 160s/80s. His other vital signs are stable. The patient was instructed to take his amlodipine when he goes home." History of bowel resection History of brachytherapy History of cataract extraction with lens replacement R/L History of colonoscopy History of placement of ear tubes History of prostate surgery History of tonsillectomy History of tooth extraction Hx of transurethral resection of prostate Nausea and vomiting after administration of anesthetic agent S/P arthroscopy of right shoulder S/P tube myringotomy Family History Sister Breast cancer Brother Alcoholism Cirrhosis Family/Other Prostate cancer Diabetes Colorectal cancer Stroke Mother Liver cancer Father Lung cancer Other Hypertension No family history of adverse response to anesthesia Social History Smoking Status: Never smoker Tobacco Type: Cigarettes Age Started Using Tobacco: 11; Age Quit Using Tobacco: 31; packs per day: 4; Years Smoked: 20; Number of Years Since Quit: 53; Second Hand Exposure: No; Hx Alcohol Use: No Hx Substance Use: No Preferred Language: Armenian Communication Ability: Effective Visual Impairment: No Limitations Loft Patternmaker Required: No Beliefs That Will Affect Care: None marital status: / Current Living Situation: Alone Current Living Situation Comment: Daughter checks in current occupational status: 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 Feels Safe at Home: Yes Seatbelt Use: always Assistive Devices: Walker Review of Systems Constitutional: as per Subjective / HPI Eyes: no problem reported Ear, Nose, Mouth, Throat: no problem reported Respiratory: no cough and no dyspnea Cardiovascular: no chest pain and no dyspnea Gastrointestinal: as per Subjective / HPI Genitourinary: + as per Subjective / HPI Musculoskeletal: no back pain Integumentary: no rash and no lesions Neurologic: as per Subjective / HPI Psychiatric: as per Subjective / HPI Physical Exam Constitutional: cooperative; no acute distress Neck: normal visual inspection Respiratory: normal respiratory effort; no respiratory distress and no labored breathing Cardiovascular: Extremities: no calf tenderness Gastrointestinal (Abdomen): Inspection/Auscultation: abdomen normal to inspection Percussion/Palpation: abdomen soft; abdomen nontender and no guarding Musculoskeletal: Head/Neck/Chest: normocephalic Skin: No visible rashes or lesions to exposed skin areas Neurologic: moves all extremities and awake Psychiatric: Orientation: alert and oriented to person Genitourinary: no CVA tenderness Ho catheter intact, small amount of dean colored urine in tubing and bag Results & Data ([facility]) Vital Signs (Past 12 Hours) Vital Signs Temp Pulse Resp BP BP Pulse Ox 08/14/21 07:40 36.5 C 87 18 160/75 H 98 08/13/21 23:21 164/77 H 08/13/21 23:17 36.9 C 80 19 173/79 H 97 PG Care Time/CCT Total # of Minutes Spent Total Time Spent with Patient: Total time spent is greater than 50% in coordination of care (as documented) at patient's floor/unit and/or counseling patient: Coding Level of Care Code 42981 Initial Inpt Care Lvl 2 Diagnoses JAME (acute kidney injury) N17.9 Hydronephrosis N13.30 Primary bladder malignant neoplasm C67.9
[2021-08-14] MEDS ORDERED: LORazepam 1 MG TAB PO STA (12:20)
[2021-08-14] MEDS: PATIROMER CALCIUM SORBITEX 8.4 GM PACK PO SCH (13:17)
--- NOTE | 2021-08-14 13:49 | Hospitalist Progress Note ---
Date of Service August 14, 2021 Assessment & Plan (1) JAME (acute kidney injury): Plan: Acute renal failure is now evident. Case discussed with nephrology. Bilateral distal ureter obstruction is a consideration considering he has mild bilateral hydronephrosis seen on ultrasound and a previous history of bladder cancer. Urology consult requested. IV fluids taper down. Continue serial lab studies. Administer intravenous fluids. Monitor intake and output. Discontinue any diuretics. Serial lab studies . Empiric intravenous Zosyn pending urine culture and blood culture results to rule out sepsis (2) Hypoglycemia: Plan: Discontinued glipizide and Metformin on admission. IV fluids containing D5W. Monitor Accu-Cheks. ADA diet. (3) HTN (hypertension): Plan: Blood pressure mildly elevated on admission. -Continue Amlodipine 10mg po qAM (4) Primary bladder malignant neoplasm: Plan: Patient is s/p TURBT performed in April 2021 -Continue Oxybutynin . -Bilateral hydronephrosis seen on ultrasound suggests the possibility of bilateral distal ureteral obstruction from the bladder tumor. Urology consulted (5) Stroke: Plan: Remote. No focal deficits -Continue ASA 81mg po daily -Continue Pravastatin (6) Hypothyroidism: Plan: Chronic. 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 Discontinued oral agents -ISS. ADA diet -Continue IV fluids containing D5W (8) Anxiety disorder: Plan: Chronic -Continue Escitalopram 5mg po daily -Ativan 1mg po q6h as needed (9) Dementia: Plan: Chronic -Frequent reorientation -Avoid delirium inducing agents where able Plan: DVT Ppx - Heparin BID Code - Full Dispo -eventual discharge back to home. Admission and Anticipated Discharge Date Admission Date: August 13, 2021 Subjective Alert and oriented. Creatinine has bumped to 5.2 consistent with acute renal failure. Case discussed with nephrology. There is evidence of mild bilateral hydronephrosis seen on the renal ultrasound possibly from distal ureter obstru ction related to the previous history of bladder cancer. However, he did have a syncopal episode with hypotension and hypoglycemia which may have been prolonged enough to cause acute renal failure. Nephrology and urology have been consulted. Blood and urine cultures requested. Start Zosyn until infectious etiology is ruled out. He is very anxious today and lorazepam has been ordered going forward. Review of Systems Review of Systems: Constitutional-no fever or chills. Anxious ENT-no blurred vision, no double vision, no epistaxis, no sore throat Respiratory-no cough, no wheezing, no shortness of breath Cardiac-no palpitations, no chest pain, no syncope GI-no nausea, vomiting, diarrhea, melena, hematochezia -no urinary retention, no urinary incontinence, no dysuria, no hematuria Musculoskeletal-no joint pain, no muscle tenderness Skin-no bruising, no rashes, no pruritus Neuro-no isolated weakness, no paresthesia, no weakness Psych-no depression. He does have anxiety Physical Exam Physical Exam: General-alert and oriented x3, no fevers, no chills HEENT-head atraumatic and normocephalic, TMs intact bilaterally, pupils equal and reactive to light, extraocular muscles intact Neck-no lymphadenopathy or thyromegaly, trachea midline Chest-clear to auscultation percussion. No rales wheezing or rhonchi Cardiac-regular rate and rhythm, normal S1 and S2, no murmurs Abdomen-normal bowel sounds, nontender, no hepatosplenomegaly Extremities-no cyanosis, clubbing, or edema Neuro-cranial nerves II through XII intact, motor and sensory function within normal limits, strength symmetrical 5/5, no focal deficits Psych-normal affect, normal mood. Anxiety at baseline Results & Data Results & Data ([facility]) Vital Signs (Past 12 Hours) Vital Signs Temp Pulse Resp BP Pulse Ox 08/14/21 07:40 36.5 C 87 18 160/75 H 98 Laboratory Results 08/14/21 05:39 08/14/21 05:39 PG Care Time/CCT Total # of Minutes Spent Total Time Spent with Patient: Total time spent is greater than 50% in coordination of care (as documented) at patient's floor/unit and/or counseling patient: Coding Level of Care Code 10480 Subseq Hosp Care Lvl 3 Diagnoses JAME (acute kidney injury) N17.9 Hypoglycemia E16.2 HTN (hypertension) I10 Primary bladder malignant neoplasm C67.9 Stroke I63.9 Hypothyroidism E03.9 Controlled type 2 diabetes mellitus with chronic kidney disease E11.22 Anxiety disorder F41.9 Dementia F03.90
--- NOTE | 2021-08-14 13:52 | CT Scan Report ---
ABDOMEN AND PELVIS CT WITH ORAL CONTRAST CT DOSE: 415.20 mGy.cm HISTORY: Acute kidney injury. History of bladder carcinoma with pathologic adenopathy JAME, h/o bladd er CA and retroperitoneal lymphadeno TECHNIQUE: Multiaxial CT images of the abdomen and pelvis were performed following the use of oral co ntrast. A dose lowering technique was utilized adhering to the principles of ALARA. COMPARISON STUDY: CT abdomen and pelvis 12/11/2018 FINDINGS: Limited exam secondary to respiratory motion artifact and lack of IV contrast. Mild cardiomegaly with small pericardial effusion. Small right greater than left pleural effusions with dependent bibasilar consolidation suggestive of atelectasis. There is no pneumatosis or pneumoperitoneum. Decreased size of the chronic subcapsular collection of the spleen now measuring 7 mm, previously 10 mm with mild marginal calcification. There is mild wall thickening involving the proximal duodenum. T here is edema within the pancreatic head and uncinate process fracture on the pancreaticoduodenal carol ove. No pancreatic ductal dilation. Trace pericholecystic edema. No cholelithiasis or gallbladder wal l thickening identified. Unremarkable adrenal glands. The unenhanced liver is within normal limits. Bilateral perinephric stranding with symmetric mild to moderate hydroureteronephrosis. No urolith. De compressed urinary bladder with wall thickening and Ho catheter. Perivesicular stranding. Prostame michael with brachytherapy seeds. Small fat filled inguinal hernias. Atherosclerosis of the aorta. Trace abdominal pelvic ascites. Pathologically enlarged lymph nodes of the retroperitoneum and mesentery r edemonstrated measuring up to 11 mm, generally stable from prior. Mild nonspecific distal esophageal wall thickening. No bowel obstruction. Partial distention of the r ectum with mild wall thickening. Moderate fecal retention. The appendix is not diagnostically visuali zed. Mild generalized body wall edema. Lumbar levoscoliosis. Degenerative changes of the spine, pelvi s and hips. IMPRESSION: 1. Symmetric mild to moderate bilateral hydroureteronephrosis, possibly from bladder outlet obstructi on. The prostate is enlarged with brachytherapy seeds. 2. Small pleural effusions with small volume of abdominal pelvic ascites. 3. Wall thickening of the duodenum with edema surrounding the pancreatic head and uncinate process. A lthough these findings may be secondary to aforementioned fluid overload, however correlation should be made with clinical history and lipase level to exclude duodenitis versus acute pancreatitis. 4. Pathologic retroperitoneal and mesenteric adenopathy is stable from the 2019 study. 5. Mildly decreased size of the chronic subcentimeter perisplenic fluid collection. 6. Additional findings as above. ACT 112: Negative or not required by law. The above report was generated using voice recognition software. It may contain grammatical, syntax o r spelling errors. Electronically signed by: Yoel Miller M.D. 08/14/2021 1:51 PM
[2021-08-14 14:20] LABS: Creatinine Urine Random 5.8 mg/dl
[2021-08-14 15:35] LABS: BUN Creatinine Ratio 10.4 (10-20); Calcium 7.7 mg/dl (8.5-10.1); Creatinine Clr Calc Pharmacy 7.9 ml/min; Est GFR (African American) 9.5 ml/min; Est GFR (Non-African American) 8.2 ml/min; Potassium 5.8 mmol/L (3.5-5.1)
[2021-08-14] MEDS ORDERED: FUROSEMIDE 40 MG/4 ML VIAL IV ONE (16:18)
[2021-08-14] MEDS ORDERED: PATIROMER CALCIUM SORBITEX 8.4 GM PACK PO ONE (16:19)
[2021-08-14] MEDS: CARBOHYDRATES FOR HYPOGLYCEMIA PO PRN (17:00)
[2021-08-14] MEDS: PIPERACILLIN/TAZOBACTAM 3.375 GM in DEXTROSE 5% 100 ML IV SCH (17:32)
[2021-08-14] MEDS: ALFUZOSIN HCL 10 MG TAB PO SCH (20:18)
[2021-08-14] MEDS: OXYBUTYNIN CHLORIDE 5 MG TAB PO SCH (20:18)
[2021-08-14] MEDS: PRAVASTATIN SOD 10 MG TAB PO SCH (20:18)
[2021-08-14] MEDS: LORazepam 1 MG TAB PO PRN (20:24)
[2021-08-14] MEDS ORDERED: Nursing to Pharmacy Communication SCH (22:45)
[2021-08-15] MEDS: INSULIN ASPART PER UNIT SC SCH ×5 (00:04→21:08)
[2021-08-15] MEDS: DEXTROSE 50% 50 ML SYRINGE IV PRN (05:46)
[2021-08-15] MEDS: LEVOTHYROXINE SODIUM 50 MCG TABLET PO SCH (06:04)
[2021-08-15] MEDS: PIPERACILLIN/TAZOBACTAM 3.375 GM in DEXTROSE 5% 100 ML IV SCH ×2 (06:04→19:45)
[2021-08-15 06:29] LABS: Calcium 7.5 mg/dl (8.5-10.1); Creatinine Clr Calc Pharmacy 8.1 ml/min; Est GFR (African American) 9.8 ml/min; Est GFR (Non-African American) 8.4 ml/min; Potassium 4.8 mmol/L (3.5-5.1)
[2021-08-15] MEDS: FOLIC ACID 1 MG TAB PO SCH (09:00)
--- NOTE | 2021-08-15 10:12 | Urology Progress Note ---
Date of Service August 15, 2021 Assessment & Plan (1) Hydronephrosis: (2) Acute renal failure: (3) Primary bladder malignant neoplasm: (4) Prostate cancer: Plan: JAME in the setting of bladder ca (s/p TURBT x2 in the past year) and prior brachytherapy for prostate ca - Cr has not improved drastically since admission, but his UoP seems to have increased a bit overnight - appears relatively euvolemic on exam - minimal lower extremity edema, no resp distress - imaging reviewed - Ct yesterday shows modest dilation of the proximal ureters b/l, level of distention seems to decrease after the ureters cross the iliac vessels (and some adenopathy/fibrosis) - old CT imaging from several years ago are not substantially different in appearance (minimal) - Given his relatively stable imaging findings, the circumstances of his arrival at the hospital (found down - uncertain time; hypoglycemia), as well as a prior discussion with his daughter about escalation of care, I favor continued observation rather than pursuit of intervention - he very clearly could have an obstructive component of his renal failure, but for now, it seems as though he is not in emergent need of dialysis, and I fear I may not be able to successfully place stents (based on prior evaluation of his bladder as well as CT appearance) - if we elect to try to treat him for obstruction, there is a realistic possibility that perc nephrectomy would be required. - with all of that in mind - I think we should give one additional day to see if he starts to show improvement in function Admission and Anticipated Discharge Date Admission Date: August 13, 2021 Subjective Subjectively denies any discomfort or complaints he has baseline dementia - but was very pleasant and interactive as we visited Physical Exam Physical Exam: abd soft, no flank pain no distention limited urine in celaya bag, but relatively clear Results & Data ([facility]) Vital Signs (Past 12 Hours) Vital Signs Temp Pulse Resp BP Pulse Ox 08/15/21 07:03 36.5 C 88 20 163/77 H 96 08/14/21 23:09 36.7 C 93 H 22 136/69 96 PG Care Time/CCT Total # of Minutes Spent Total Time Spent with Patient: Total time spent is greater than 50% in coordination of care (as documented) at patient's floor/unit and/or counseling patient: Coding Level of Care Code 78747 Subseq Hosp Care Lvl 3 Diagnoses Hydronephrosis N13.30 Acute renal failure N17.9 Acute renal failure type: unspecified Primary bladder malignant neoplasm C67.9 Prostate cancer C61 (1) Acute renal failure Acute renal failure type: unspecified Qualified Code(s): N17.9 - Acute kidney failure, unspecified
--- NOTE | 2021-08-15 10:35 | Nephrology Progress Note ---
Date of Service August 15, 2021 Assessment & Plan (1) JAME (acute kidney injury): Plan: * Oliguric JAME/CKD concerning for obstruction. Patient has bladder CA managed w/ BCG therapy and prostate CA s/p radioactive seed implantation. 12/[address] revealed numerous enlarged mesenteric and retroperitoneal lymph nodes concerning for a lymphoproliferative disorder. 08/14/21 CT revealed stable lymphadenopathy and symmetric mild to moderate bilateral hydronephrosis * Urine microscopy is difficult to interpret due to underlying bladder malignancy. No cellular casts reported * Will continue NaHCO3 infusion but reduce the rate * Patient has responded to IV Furosemide. He is now nonoliguric * No acute indication for HD. Continue medical management of electrolyte abnormalities (2) Chronic kidney disease: Plan: * Baseline Cr 1.4. Imaging reveals cortical atrophy c/w microvascular disease (3) Hypoglycemia: Plan: * Likely due to metformin and glipizide in the setting of JAME * Agree w/ holding metformin and glipizide and managing blood sugar w/ insulin therapy (4) Primary bladder malignant neoplasm: Plan: * Recommend consultation w/ Urology. Suspect patient would benefit from ureteral stenting or bilateral PCN * Consider noncontrast abdominal CT to reassess degree of abdominal/retroperitoneal lymphadenopathy (5) Hyperkalemia: Plan: * Will provide one dose Patiromer this am * Add NaHCO3 to IVF as outlined above (6) Metabolic acidosis: Plan: * See JAME above Admission and Anticipated Discharge Date Admission Date: August 13, 2021 Subjective Mr. Mares was seen & evaluated in his hospital room this morning. He c/o back discomfort. Ho catheter is in place w/ small volume of clear yellow urine Review of Systems Constitutional: + weakness; no fever Eyes: no problem reported Ear, Nose, Mouth, Throat: no problem reported Respiratory: no dyspnea Cardiovascular: no chest pain, no palpitations and no edema Gastrointestinal: no abdominal pain, no nausea, no vomiting and no diarrhea/loose stools Genitourinary: + urinary hesitancy and + hematuria; no dysuria Musculoskeletal: no back pain Integumentary: no rash Neurologic: no falls, no dizziness and no confusion Physical Exam Constitutional: not in distress Eyes: PERRL, conjunctivae normal, anicteric sclerae ENMT: external ear and nose normal, oropharynx normal Neck: trachea midline, no thyromegaly Respiratory: normal respiratory effort, lungs clear to auscultation Cardiovascular: RRR, no murmur, no edema Gastrointestinal (Abdomen): normal bowel sounds, soft, nontender, no hepatosplenomegaly Results & Data ([facility]) Vital Signs (Past 12 Hours) Vital Signs Temp Pulse Resp BP Pulse Ox 08/15/21 07:03 36.5 C 88 20 163/77 H 96 08/14/21 23:09 36.7 C 93 H 22 136/69 96 Laboratory Results Laboratory Tests 08/14/21 08/15/21 05:39 05:28 WBC 18.67 H Hgb 12.4 L Hct 36.9 L Plt Count 261 Sodium 128 L Potassium 4.8 Chloride 97 L Carbon Dioxide 22 BUN 56 H Creatinine 5.58 H* PG Care Time/CCT Total # of Minutes Spent Total Time Spent with Patient: Total time spent is greater than 50% in coordination of care (as documented) at patient's floor/unit and/or counseling patient: Coding Diagnoses JAME (acute kidney injury) N17.9 Chronic kidney disease N18.9 Hypoglycemia E16.2 Primary bladder malignant neoplasm C67.9 Hyperkalemia E87.5 Metabolic acidosis E87.2
[2021-08-15] MEDS ORDERED: FUROSEMIDE 40 MG/4 ML VIAL IV ONE (10:42)
[2021-08-15] MEDS: amLODIPine BESYLATE 5 MG TAB PO SCH (11:20)
[2021-08-15] MEDS: ASPIRIN 81 MG ECTAB PO SCH (11:21)
[2021-08-15] MEDS: NYSTATIN CR 15 GM TUBE EXT SCH ×2 (11:22→20:03)
[2021-08-15] MEDS: ESCITALOPRAM OXALATE 10 MG TAB PO SCH (11:22)
[2021-08-15] MEDS: PATIROMER CALCIUM SORBITEX 8.4 GM PACK PO SCH (12:00)
--- NOTE | 2021-08-15 13:27 | Hospitalist Progress Note ---
Date of Service August 15, 2021 Assessment & Plan (1) JAME (acute kidney injury): Plan: Acute renal failure is now present . Appreciate nephrology consultation. He is receiving parenteral sodium bicarbonate and serial labs. Urology consultation noted. No acute intervention needed at this time. IV fluids have been tapered down. Continue serial lab studies. Monitor intake and output. Discontinue any diuretics. Serial lab studies . Empiric intravenous Zosyn , day 2. Blood cultures are negative to date. Final urine culture remains pending (2) Hypoglycemia: Plan: Discontinued glipizide and Metformin on admission. IV fluids containing D5W. Monitor Accu-Cheks. ADA diet. (3) HTN (hypertension): Plan: Blood pressure mildly elevated on admission. Now improved and stable -Continue Amlodipine 10mg po qAM (4) Primary bladder malignant neoplasm: Plan: Patient is s/p TURBT performed in April 2021 -Continue Oxybutynin . -Bilateral hydronephrosis seen on ultrasound suggests the possibility of bilateral distal ureteral obstruction from the bladder tumor. Urology consult appreciated. No need for intervention at this time (5) Stroke: Plan: Remote. No focal deficits -Continue ASA 81mg po daily -Continue Pravastatin (6) Hypothyroidism: Plan: Chronic. 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 Discontinued oral agents -ISS. ADA diet -Continue IV fluids containing D5W (8) Anxiety disorder: Plan: Chronic. Scheduled benzodiazepine dosing has helped (9) Dementia: Plan: Chronic -Frequent reorientation -Avoid delirium inducing agents where able Plan: DVT Ppx - Heparin BID Code - Full Dispo -eventual discharge back to home. Admission and Anticipated Discharge Date Admission Date: August 13, 2021 Subjective Alert and oriented. No acute distress. Neurology consultation noted. No need for acute intervention at this time. Daily clinical evaluation. Nephrology entry noted. He is on sodium bicarbonate infusion. Creatinine stable at 5.5. Potassium improved to 4.8. Metformin and glipizide remain on hold. Glucose 119 this morning. Zosyn day 2. White blood cell count is downtrending. Blood cultures are negative to date. Urine culture results pending. Anxiety has improved with addition of scheduled benzodiazepine Review of Systems Review of Systems: Constitutional-no fever or chills ENT-no blurred vision, no double vision, no epistaxis, no sore throat Respiratory-no cough, no wheezing, no shortness of breath Cardiac-no palpitations, no chest pain, no syncope GI-no nausea, vomiting, diarrhea, melena, hematochezia -no urinary retention, no urinary incontinence, no dysuria, no hematuria Musculoskeletal-no joint pain, no muscle tenderness Skin-no bruising, no rashes, no pruritus Neuro-no isolated weakness, no paresthesia, no weakness Psych-no depression, no anxiety Physical Exam Physical Exam: General-alert and oriented x3, no fevers, no chills HEENT-head atraumatic and normocephalic, TMs intact bilaterally, pupils equal and reactive to light, extraocular muscles intact Neck-no lymphadenopathy or thyromegaly, trachea midline Chest-clear to auscultation percussion. No rales wheezing or rhonchi Cardiac-regular rate and rhythm, normal S1 and S2, no murmurs Abdomen-normal bowel sounds, nontender, no hepatosplenomegaly Extremities-no cyanosis, clubbing, or edema Neuro-cranial nerves II through XII intact, motor and sensory function within normal limits, strength symmetrical , no focal deficits Psych-normal affect, normal mood Results & Data Results & Data ([facility]) Vital Signs (Past 12 Hours) Vital Signs Temp Pulse Resp BP Pulse Ox 08/15/21 07:03 36.5 C 88 20 163/77 H 96 Laboratory Results 08/14/21 05:39 08/15/21 05:28 PG Care Time/CCT Total # of Minutes Spent Total Time Spent with Patient: Total time spent is greater than 50% in coordination of care (as documented) at patient's floor/unit and/or counseling patient: Coding Level of Care Code 56966 Subseq Hosp Care Lvl 3 Diagnoses JAME (acute kidney injury) N17.9 Hypoglycemia E16.2 HTN (hypertension) I10 Primary bladder malignant neoplasm C67.9 Stroke I63.9 Hypothyroidism E03.9 Controlled type 2 diabetes mellitus with chronic kidney disease E11.22 Anxiety disorder F41.9 Dementia F03.90
[2021-08-15] MEDS: SODIUM BICARBONATE 8.4% 150 MEQ in DEXTROSE 5% 1,000 ML IV SCH (13:28)
[2021-08-15 15:20] LABS: BUN Creatinine Ratio 9.3 (10-20); Calcium 7.5 mg/dl (8.5-10.1); Creatinine Clr Calc Pharmacy 7.2 ml/min; Est GFR (African American) 8.5 ml/min; Est GFR (Non-African American) 7.3 ml/min; Potassium 5.2 mmol/L (3.5-5.1)
[2021-08-15] MEDS ORDERED: Nursing to Pharmacy Communication SCH (17:00)
[2021-08-15] MEDS: PRAVASTATIN SOD 10 MG TAB PO SCH (20:02)
[2021-08-15] MEDS: OXYBUTYNIN CHLORIDE 5 MG TAB PO SCH (20:02)
[2021-08-15] MEDS: ALFUZOSIN HCL 10 MG TAB PO SCH (20:02)
[2021-08-15] MEDS: CARBOHYDRATES FOR HYPOGLYCEMIA PO PRN (20:50)
[2021-08-16] MEDS: LORazepam 1 MG TAB PO PRN ×2 (00:58→20:37)
[2021-08-16] MEDS: SODIUM BICARBONATE 8.4% 150 MEQ in DEXTROSE 5% 1,000 ML IV SCH (03:22)
[2021-08-16] MEDS: LEVOTHYROXINE SODIUM 50 MCG TABLET PO SCH (05:37)
[2021-08-16] MEDS: PIPERACILLIN/TAZOBACTAM 3.375 GM in DEXTROSE 5% 100 ML IV SCH (05:38)
[2021-08-16 06:51] LABS: Hematocrit (blood only) 34.3 % (42-52); Hemoglobin 11.5 g/dL (14.0-18.0); Mean Corpuscular Hemoglobin 28.3 pg (25-34); Mean Corpuscular Hgb Conc 33.5 g/dL (32-36); Mean Corpuscular Volume 84.5 fL (80-100); Mean Platelet Volume 9.7 fL (7.4-10.4); Platelet Count 269 K/uL (130-400); RDW Coefficient of Variation 13.1 % (11.5-14.5); RDW Standard Deviation 39.9 fL (36.4-46.3); Red Blood Count 4.06 M/uL (4.7-6.1); White Blood Count 17.23 K/uL (4.8-10.8)
[2021-08-16 07:21] LABS: BUN Creatinine Ratio 8.3 (10-20); Calcium 7.2 mg/dl (8.5-10.1); Creatinine Clr Calc Pharmacy 6.6 ml/min; Est GFR (African American) 7.6 ml/min; Est GFR (Non-African American) 6.5 ml/min; Potassium 4.7 mmol/L (3.5-5.1)
[2021-08-16] MEDS: INSULIN ASPART PER UNIT SC SCH ×4 (08:44→21:25)
[2021-08-16] MEDS: ESCITALOPRAM OXALATE 10 MG TAB PO SCH (08:46)
[2021-08-16] MEDS: amLODIPine BESYLATE 5 MG TAB PO SCH (08:46)
[2021-08-16] MEDS: NYSTATIN CR 15 GM TUBE EXT SCH ×2 (08:46→20:35)
[2021-08-16] MEDS: ASPIRIN 81 MG ECTAB PO SCH (08:46)
[2021-08-16] MEDS: FOLIC ACID 1 MG TAB PO SCH (08:47)
--- NOTE | 2021-08-16 08:49 | Nephrology Progress Note ---
Date of Service August 16, 2021 Assessment & Plan (1) JAME (acute kidney injury): Plan: * Oliguric JAME/CKD concerning for obstruction. Patient has bladder CA managed w/ BCG therapy and prostate CA s/p radioactive seed implantation. 12/[address] revealed numerous enlarged mesenteric and retroperitoneal lymph nodes concerning for a lymphoproliferative disorder. 08/14/21 CT revealed stable lymphadenopathy and symmetric mild to moderate bilateral hydronephrosis * Urine microscopy is difficult to interpret due to underlying bladder malignancy. No cellular casts reported * Bicarbonate has corrected. Patient is now volume positive and oliguric. Will d/c NaHCO3 infusion * No acute indication for HD. Continue medical management of electrolyte abnormalities (2) Chronic kidney disease: Plan: * Baseline Cr 1.4. Imaging reveals cortical atrophy c/w microvascular disease (3) Hypoglycemia: Plan: * Likely due to metformin and glipizide in the setting of JAME * Agree w/ holding metformin and glipizide and managing blood sugar w/ insulin therapy (4) Primary bladder malignant neoplasm: Plan: * Await Urology input. Suspect patient may require stenting (5) Hyperkalemia: Plan: * Corrected. Monitor Admission and Anticipated Discharge Date Admission Date: August 13, 2021 Subjective Mr. Mares was evaluated in his hospital room this morning. He c/o back discomfort but voices no other medical concerns. Ho catheter is in place w/ only a small volume of dark yellow urine Review of Systems Constitutional: + weakness; no fever Eyes: no problem reported Ear, Nose, Mouth, Throat: no problem reported Respiratory: no dyspnea Cardiovascular: no chest pain, no palpitations and no edema Gastrointestinal: no abdominal pain, no nausea, no vomiting and no diarrhea/loose stools Genitourinary: + urinary hesitancy and + hematuria; no dysuria Musculoskeletal: no back pain Integumentary: no rash Neurologic: no falls, no dizziness and no confusion Physical Exam Constitutional: not in distress Eyes: PERRL, conjunctivae normal, anicteric sclerae ENMT: external ear and nose normal, oropharynx normal Neck: trachea midline, no thyromegaly Respiratory: normal respiratory effort, lungs clear to auscultation Cardiovascular: RRR, no murmur, no edema Gastrointestinal (Abdomen): normal bowel sounds, soft, nontender, no hepatosplenomegaly Results & Data ([facility]) Vital Signs (Past 12 Hours) Vital Signs Temp Pulse Pulse Pulse Resp BP Pulse Ox 08/16/21 07:30 36.5 C 89 17 148/72 H 97 08/16/21 00:00 73 16 133/75 08/15/21 22:38 36.7 C 93 H 22 143/80 H 93 Laboratory Results Laboratory Tests 08/16/21 08/16/21 06:34 06:34 WBC 17.23 H Hgb 11.5 L Hct 34.3 L Plt Count 269 Sodium 128 L Potassium 4.7 Chloride 93 L Carbon Dioxide 26 BUN 57 H Creatinine 6.89 H* D Glucose 56 L Calcium 7.2 L PG Care Time/CCT Total # of Minutes Spent Total Time Spent with Patient: Total time spent is greater than 50% in coordination of care (as documented) at patient's floor/unit and/or counseling patient: Coding Level of Care Code 08996 Subseq Hosp Care Lvl 3 Diagnoses JAME (acute kidney injury) N17.9 Chronic kidney disease N18.9 Hypoglycemia E16.2 Primary bladder malignant neoplasm C67.9 Hyperkalemia E87.5
[2021-08-16] MEDS: CARBOHYDRATES FOR HYPOGLYCEMIA PO PRN (11:59)
[2021-08-16] MEDS: PATIROMER CALCIUM SORBITEX 8.4 GM PACK PO SCH (13:12)
--- NOTE | 2021-08-16 13:52 | Urology Progress Note ---
Date of Service August 16, 2021 Assessment & Plan (1) Acute renal failure: (2) Primary bladder malignant neoplasm: Plan: JAME; history of TCC Unfortunately he is not producing additional urine despite hydration and supportive care His creatinine also continues to rise Family discussion ongoing about how to proceed He certainly could attempt cystoscopy and ureteral stent placement, however there is the potential for failure of stent placement or failure of the stents to adequately relieve the obstruction even if successfully placed. He also has the option of percutaneous nephrostomy tubes, however this would require transfer to a tertiary facility with IR. Overall, despite his dementia he appears to be in relatively good health and in good spiritsit seems reasonable to entertain minor intervention. We will continue this discussion with the family. Admission and Anticipated Discharge Date Admission Date: August 13, 2021 Subjective Subjectively seems to be doing okay Denies any major complaints No pain Catheter not bothering him Minimal urine output Physical Exam Constitutional: well developed and well nourished Respiratory: no respiratory distress Cardiovascular: Extremities: no pedal edema Gastrointestinal (Abdomen): Inspection/Auscultation: abdomen normal to inspection Results & Data ([facility]) Vital Signs (Past 12 Hours) Vital Signs Temp Pulse Resp BP Pulse Ox 08/16/21 07:30 36.5 C 89 17 148/72 H 97 PG Care Time/CCT Total # of Minutes Spent Total Time Spent with Patient: Total time spent is greater than 50% in coordination of care (as documented) at patient's floor/unit and/or counseling patient: Coding Level of Care Code 40084 Subseq Hosp Care Lvl 2 Diagnoses Acute renal failure N17.9 Acute renal failure type: unspecified Primary bladder malignant neoplasm C67.9 (1) Acute renal failure Acute renal failure type: unspecified Qualified Code(s): N17.9 - Acute kidney failure, unspecified
--- NOTE | 2021-08-16 17:18 | Hospitalist Progress Note ---
Date of Service August 16, 2021 Assessment & Plan (1) JAME (acute kidney injury): Plan: Acute renal failure, post renal obstructive uropathy History of bladder cancer Has worsened with rising creatinine despite hydration and overall euvolemic appearance. Creatinine 6.89 today Potassium 4.7, normal Sodium 128 No pulmonary edema Discussed options extensively with both the patient's daughters and with the patient at bedside. His daughters are his medical power of forming and assembling supervisor. Options including cystoscopy/stent placement, percutaneous nephrostomy, and dialysis were discussed with risks/benefits of each. There is no report that "when it is time it is time, he has been ready to go and has a better place," and would not want aggressive interventions or invasive interventions at this point. They do not wish for transfer to tertiary care for PERC nephrostomy, do not wish to pursue dialysis, and do not wish to pursue an attempt at stenting especially since patient has not done well with anesthesia in the past. They would like to enroll in hospice and pursue comfort measures/hospice at [place]. We will continue current medications at this time while services are being facilitated, and then wean medications on discharge to hospice services. DNR/DNI at this time. Defer additional labs at this time (2) Hypoglycemia: Plan: Glipizide/Metformin discontinued on admission On fluids containing D5 Defer aggressive glycemic control (3) HTN (hypertension): Plan: Continue amlodipine 10 mg p.o. every morning (4) Primary bladder malignant neoplasm: Plan: Patient is s/p TURBT performed in April 2021 -Continue Oxybutynin . -See above, pursuing hospice goals of care at this time (5) Stroke: Plan: Remote. No focal deficits -Continue ASA 81mg po daily -Continue Pravastatin (6) Hypothyroidism: Plan: Chronic. 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 Discontinued oral agents - ADA diet -Continue IV fluids containing D5W as needed (8) Anxiety disorder: Plan: Chronic. Scheduled benzodiazepine dosing has helped (9) Dementia: Plan: Chronic -Frequent reorientation -Avoid delirium inducing agents where able Plan: DVT Ppx - Heparin BID Code - Full Dispo -hospice as above, pending Admission and Anticipated Discharge Date Admission Date: August 13, 2021 Subjective Bill is seen at the bedside, and again in the afternoon with his daughter present. He is pleasantly confused, is oriented to place but not to year. Is not sure why he is in the hospital. Is oriented to name. His medical power of forming and assembling supervisor's are his daughters. He has had interval increase in his creatinine and minimal to no urine output. This was discussed with urology and patient's family. Likely has progressive obstructive nephropathy in the setting of known cancer. Patient has not wanted dialysis or escalation of care previous to this. Did review options for potential stenting and PERC nephrostomy with risks/benefits with family in the morning, met again in afternoon to discuss and family would like to pursue hospice at this time. Dm is comfortable, denies pain, and has no lightheadedness, dizziness, chest pain, chest pressure, abdominal pain, flank pain, low back pain and assessment. Review of Systems Review of Systems: All systems reviewed & are unremarkable except as noted in Subjective Physical Exam Physical Exam: General: Oriented to name, and that building his hospital. Not oriented to year/city HEENT: Atraumatic, normocephalic. Visual acuity and hearing grossly intact Pulm: Diminished, no overt rales. Symmetrical chest rise. No increase in work of breathing. No respiratory distress. Cardiac: RRR, -mrg. Radial pulses intact and symmetrical. Abdominal: Nontender, nondistended, soft. BS present. Results & Data Results & Data ([facility]) Vital Signs (Past 12 Hours) Vital Signs Temp Pulse Resp BP Pulse Ox 08/16/21 14:32 36.8 C 74 16 154/80 H 95 08/16/21 07:30 36.5 C 89 17 148/72 H 97 PG Care Time/CCT Total # of Minutes Spent Total Time Spent with Patient: Total time spent is greater than 50% in coordination of care (as documented) at patient's floor/unit and/or counseling patient: Coding Level of Care Code 93814 Subseq Hosp Care Lvl 2 Diagnoses JAME (acute kidney injury) N17.9 Hypoglycemia E16.2 HTN (hypertension) I10 Primary bladder malignant neoplasm C67.9 Stroke I63.9 Hypothyroidism E03.9 Controlled type 2 diabetes mellitus with chronic kidney disease E11.22 Anxiety disorder F41.9 Dementia F03.90
[2021-08-16] MEDS: ONDANSETRON INJ 2 MG/ML 2 ML VIAL IV PRN (19:45)
[2021-08-16] MEDS: PRAVASTATIN SOD 10 MG TAB PO SCH (20:35)
[2021-08-16] MEDS: ALFUZOSIN HCL 10 MG TAB PO SCH (20:35)
[2021-08-16] MEDS: OXYBUTYNIN CHLORIDE 5 MG TAB PO SCH (20:35)
[2021-08-17] MEDS: LEVOTHYROXINE SODIUM 50 MCG TABLET PO SCH (05:42)
[2021-08-17 06:27] LABS: BUN Creatinine Ratio 8.2 (10-20); Calcium 7.3 mg/dl (8.5-10.1); Creatinine Clr Calc Pharmacy 5.6 ml/min; Est GFR (African American) 6.3 ml/min; Est GFR (Non-African American) 5.4 ml/min
[2021-08-17] MEDS: DEXTROSE 50% 50 ML SYRINGE IV PRN (06:35)
[2021-08-17] MEDS: INSULIN ASPART PER UNIT SC SCH (08:07)
--- NOTE | 2021-08-17 08:58 | Nephrology Progress Note ---
Date of Service August 17, 2021 Assessment & Plan (1) JAME (acute kidney injury): Plan: Laboratory results this morning reviewed. I spoke w/ patient's daughter Robyn (medical POA). She was aware of her father's clinical decline and reaffirmed the family's decision to transition to hospice care. They feel that HD will not provide quality of life and their father had indicated in his living will that he did not want invasive procedures or life sustaining measures. Will sign off. Please call if further Nephrology assistance is needed Admission and Anticipated Discharge Date Admission Date: August 13, 2021 Results & Data ([facility]) Vital Signs (Past 12 Hours) Vital Signs Temp Pulse Pulse Resp BP Pulse Ox 08/17/21 07:20 36.6 C 82 14 168/88 H 96 08/16/21 23:00 36.4 C L 77 20 154/75 H 94 Laboratory Results Laboratory Tests 08/17/21 05:15 Sodium 126 L Potassium 5.0 Chloride 91 L Carbon Dioxide 24 BUN 66 H Creatinine 8.06 H* D PG Care Time/CCT Total # of Minutes Spent Total Time Spent with Patient: Total time spent is greater than 50% in coordination of care (as documented) at patient's floor/unit and/or counseling patient: Coding Level of Care Code 21720 Subseq Hosp Care Lvl 2 Diagnoses JAME (acute kidney injury) N17.9
[2021-08-17] MEDS: ESCITALOPRAM OXALATE 10 MG TAB PO SCH (09:16)
[2021-08-17] MEDS: amLODIPine BESYLATE 5 MG TAB PO SCH (09:16)
[2021-08-17] MEDS: FOLIC ACID 1 MG TAB PO SCH (09:16)
[2021-08-17] MEDS: ASPIRIN 81 MG ECTAB PO SCH (09:17)
[2021-08-17] MEDS: NYSTATIN CR 15 GM TUBE EXT SCH (09:17)
[2021-08-17] MEDS: PATIROMER CALCIUM SORBITEX 8.4 GM PACK PO SCH (12:24)
--- NOTE | 2021-08-17 12:25 | Discharge Summary ---
Date of Service August 17, 2021 Admission HPI Per Admitting Provider Dm Mares is an 86yo male with history of DM on oral hypoglycemics, HTN, GERD and Hypothyroidism presenting from [facility] with hypoglycemia. Patient was seen in the ER on 08/08/21 with hypoglycemia and increased confusion. His blood sugar at that time was 41. He was given glucose tabs with improvement. His only complaint at that time was not being able to urinate. Patient returns today with a similar story. He was found by staff to be unresponsive today with a blood sugar in the 30's. Blood sugar of 42 by EMS. He was administered oral glucose and D10 with improvement. Patient is complaining of no being able to urinate. Otherwise, denies complaints of fever, chills, nausea, vomiting, abdominal pain, chest pain, cough or SOB. No additional complaints at this time. In the ER patient afebrile, HD stable. Repeat fingerstick improved to 141. Laboratory workup reveals worsening of leukocytosis with WBC=11.97 as well as JAME on CKD with BUN=47, Cr of 3.77. Bladder scan with 180mL present ER Course: NSS x 1500mL, Zofran 4mg IV Principal Diagnosis Obstructive Acute Renal Failure Discharge Exam General: Oriented to name Not oriented to year/city HEENT: Atraumatic, normocephalic. Visual acuity and hearing grossly intact Pulm: Diminished, no overt rales. Symmetrical chest rise. No increase in work of breathing. No respiratory distress. Cardiac: RRR, -mrg. Radial pulses intact and symmetrical. Abdominal: Nontender, nondistended, soft. BS present. Discharge Data Allergies Allergy/AdvReac Type Severity Reaction Status Date / Time saxagliptin AdvReac Unknown Unknown Verified 07/10/21 16:10 Consultations 08/13/21 05:08 ED Decision to Admit Stat 08/14/21 08:19 Consult Nephrology Routine 08/14/21 08:23 Consult Urology Routine Ordered Studies 08/13/21 06:35 US renal/blad retro comp Routine 08/14/21 10:26 CT abd pelvis oral con only Routine Hospital Course (1) JAME (acute kidney injury): Dm is a 6-year-old male who presented with urinary obstruction in the setting of known bladder cancer with rapidly progressive acute renal failure. Urology and nephrology were consulted, various options were discussed including stent placement, both nephrostomy, and dialysis. Patient's daughters were his primary caregivers and noted even before this he did not want escalation of care and was considering hospice, did not want further escalation of care and pursued hospice as noted below. Goals of Care: 08/16: Discussed options extensively with both the patient's daughters and with the patient at bedside. His daughters are his medical power of deputy commonwealth's attorney. Options including cystoscopy/stent placement, percutaneous nephrostomy, and dialysis were discussed with risks/benefits of each. There is no report that "when it is time it is time, he has been ready to go and has a better place," and would not want aggressive interventions or invasive interventions at this point. They do not wish for transfer to tertiary care for PERC nephrostomy, do not wish to pursue dialysis, and do not wish to pursue an attempt at stenting especially since patient has not done well with anesthesia in the past. They would like to enroll in hospice and pursue comfort measures/hospice at [place]. DNR/DNI -08/17: Discharged to hospice services. Acute renal failure, post renal obstructive uropathy History of bladder cancer. Presented with worsened with rising creatinine despite hydration and overall euvolemic appearance. No pulmonary jason. Creatinine continued to uptrend, nephro/uro were consulted. Goals of care discussion as above, patient remained nearly oliguric but otherwise asymptoma tic. Discharged to comfort measures with hospice. Additional labs deferred. UOP 400cc per 24 hours, celaya kept for obstruction for comfort Defer additional labs at this time (2) Hypoglycemia: Glipizide/Metformin discontinued on admission On fluids containing D5 aggressive glycemic control deferred - Due to hypoglycemia and poor appetite antiglycemics discontinued at discharge. (3) HTN (hypertension): Continue amlodipine 10 mg p.o. every morning (4) Primary bladder malignant neoplasm: Patient is s/p TURBT performed in April 2021 -May continue Oxybutynin, although not effective at time of admission -See above, pursuing hospice goals of care at this time (5) Stroke: Remote. No focal deficits - Continued ASA 81mg po daily -Discontinued Pravastatin for hospice (6) Hypothyroidism: Chronic. Stable on medications -Continue Synthroid 50mcg po daily (7) Controlled type 2 diabetes mellitus with chronic kidney disease: on oral agents presenting with hypoglycemia. Discontinued oral agents - ADA diet (8) Anxiety disorder: Chronic. Scheduled benzodiazepine dosing has helped (9) Dementia: Chronic -Frequent reorientation -Avoid delirium inducing agents where able Dispo -hospice as above Total Time Total Time Spent Total Time Spent (In Minutes): Time spend day of discharge 40 minutes including direct patient care, documentation, review of labs and images, and coordination of care. Discharge Plan Discharge Items Patient Disposition: Hospice - Medical Facility Reason For Visit: Hypoglycemia,jame Discharge Diagnosis: Obstructive Acute Renal Failure Activity: Per Instructions section Non-emergency contact: Primary Care Provider Call non-emergency contact if: you have any medication questions, your symptoms worsen and your pain is not controlled Follow-up/Referrals: JUDAH LOAIZA JANICE [Primary Care Provider] - Diet: Regular Addtl Attending Provider Instructions: You were seen in the hospital and were found to have worsening renal failure. This is most likely due to obstruction related to bladder cancer. Various options including stenting, nephrostomy, and dialysis were discussed. You have decided to return to [facility] on hospice at this time. Case management has set up these services, and they will be available when you return. As part as hospice some of your medications have been changed/discontinued as below, as some medications have short term side effects which are unlikely to outweight their penitentiary benefits. Your antiglycemic (diabetes) medications have been stopped as you had low blood sugar during admission, and have not been eating as much. If you develop very high/symptomatic blood sugar elevation you may consider adding one or both of these back as an outpatient although it is much more likely to be symptomatic from low blood sugar rather than high blood sugar. Your hospice provider will recommend various medications if pain, difficulty breathing, fluid in the lungs, or other concerning symptoms develop. If you develop any new or worsening symptoms including fever, chills, sweats, chest pain, chest pressure, difficulty breathing, uncontrolled nausea/vomiting, rash, wheezing, passing out or nearly passing out, bleeding, black/bloody bowel movements, or other new or concerning symptoms please call your primary care physician or hospice provider. Pending Studies at Discharge: No Stand-Alone Forms: My [employer], Smoking Cessation Skilled Items Patient informed of condition?: Yes DNR: Yes Discharge Level of Care: Other Communicable Disease: No Discharge Prognosis: Deteriorating Lines: None Urinary Catheter: No Medications and DC Order Prescriptions: Continued escitalopram oxalate 10 mg tablet 5 mg PO DAILY Qty: 30 RF: 11 lorazepam 1 mg tablet 1 mg PO DAILY PRN (Reason: anxiety) Qty: 30 RF: 0 nystatin 100,000 unit/gram cream 1 applic topical BID 14 Days Qty: 30 RF: 1 levothyroxine 50 mcg Tablet 50 mcg PO QAM RF: 0 amlodipine 10 mg tablet 10 mg PO QAM RF: 0 docusate sodium [Colace] 100 mg Capsule 100 mg PO DAILY PRN (Reason: Constipation) RF: 0 alfuzosin 10 mg Tablet Extended Release 24 Hr 10 mg PO QPM RF: 0 Vitron-C 65 mg iron- 125 mg Tablet,Delayed Release (Dr/Ec) 1 tab PO QPM RF: 0 polyethylene glycol 400 0.25 % Drops 1 drp OPHTHALMIC (EYE) UD PRN (Reason: Dry Eyes) RF: 0 terbinafine HCl 1 % Cream 1 applic TOPICAL BID PRN (Reason: Rash) RF: 0 hydrocodone-acetaminophen 5-325 mg tablet 1 tab PO Q6H PRN (Reason: pain) Qty: 15 RF: 0 Discontinued metformin 1,000 mg tablet 1,000 mg PO BID Qty: 180 RF: 3 glipizide 10 mg tablet 20 mg PO BID RF: 0 aspirin 81 mg Tablet,Delayed Release (Dr/Ec) 81 mg PO QAM RF: 0 folic acid 1 mg Tablet 1 mg PO QAM RF: 0 pravastatin 10 mg tablet 10 mg PO QPM RF: 0 sulfamethoxazole-trimethoprim [Bactrim DS] 800-160 mg tablet 1 tab PO BID RF: 0 Discharge Orders: Discharge Order (Routine); Ordered 08/17/21 Ordered By: Jaron Mcqueen/Other Patient Handouts: What Is Hospice?, Starting Hospice, For Caregivers: Coping Tips Admission Data Admit Date/Time: 08/13/21 06:12 Attending Provider: Jaron Bowman Admit Provider: Nisha Conroy Primary Care Provider: JUDAH LOAIZA Other Providers: Nisha Conroy ; Yecenia Conroy ; Kp Lin ; Grabiel Hernández ; Tammy Henao ; Dean Lemus ; Jayjay Ritter Other Interventions: Discharge Summary Assessment (RN) Last Done: 08/17/21 13:49 Coding Level of Care Code D/C DAY MANAGEMENT >30 MINS Diagnoses JAME (acute kidney injury) N17.9 Hypoglycemia E16.2 HTN (hypertension) I10 Primary bladder malignant neoplasm C67.9 Stroke I63.9 Hypothyroidism E03.9 Controlled type 2 diabetes mellitus with chronic kidney disease E11.22 Anxiety disorder F41.9 Dementia F03.90
== END 2021-08-17 13:41 | disposition hospice, inpatient (51) | DRG 683 ==
LOC: ED 03:26 → EDINP 06:12 → SUATTDRO 06:12 → 3E 08:58